=== PATIENT | female | born 1960 | race Caucasian/White ===

== ENCOUNTER 2020-02-17 12:54 | Inpatient (IN) ==
[~2020-02-17 12:54] MED LIST: ZINC SULFATE 220 MG CAPSULE PO SCH
[2020-02-17] MEDS ORDERED: SODIUM CHLORIDE 0.9% 1,000 ML IV STA (14:15)
[2020-02-17] MEDS ORDERED: DEXAMETHASONE 4 MG/1 ML VIAL IV STA (14:15)
[2020-02-17 14:50] LABS: Basophils % 0.3 % (0.0-0.8); Hematocrit 40.3 VOL% (35.7-47.0); Hemoglobin 13.7 GM/DL (12.0-16.0); Immature Granulocytes % 0.4 %; Immature Granulocytes Absolute 0.04 #; Lymphocytes # 0.5 10*3/uL (1.4-4.0); Lymphocytes % 4.4 % (21.3-54.2); Mean Corpuscular Volume 85.9 FL (87-102); Mean Platelet Volume 10.4 FL (9.6-12.0); Neutrophils % 91.9 % (38.7-73.9); Platelet Count 166 T/CUMM (130-400); Red Blood Count 4.69 MC/CUMM (3.8-5.5); Red Cell Distribution Width 12.7 % (9.3-17.3); White Blood Count 10.2 T/CUMM (4-12)
[2020-02-17 15:09] LABS: INR 1.1; PT Patient Result 11.4 SECS (9.8-11.9)
[2020-02-17 15:10] LABS: Albumin 2.9 G/DL (3.4-5.0); Bilirubin,Total 0.5 MG/DL (0.2-1.0); Calcium 9.1 MG/DL (8.5-10.1); Osmolality,Calculated 263.7 MOS/KG (273-304); Total Protein 7.6 G/DL (6.4-8.3)
[2020-02-17 15:44] LABS: Bacteria,Urine Occasional /HPF (Few); Bilirubin,Urine Negative (Negative); Blood, Urine Negative (Negative); Glucose,Urine (UA) Negative (Negative); Hyaline Casts,Urine 7 /LPF (0-3); Ketones,Urine Negative (Negative); Mucus,Urine Moderate /LPF (Occasional); Nitrite,Urine Negative (Negative); Protein,Urine 30 MG/DL; RBC,Urine 1 /HPF (0-4); Squamous Epithelial Cell,Urine Occasional /HPF (0-10); Urine Appearance CLOUDY (Clear); Urine Color Amber (Yellow); Urine Specific Gravity 1.021 (1.001-1.035); Urine Urobilinogen < 2.0 EU/DL (0.2-1.0); WBC,Urine 11 /HPF (0-6)
[2020-02-17] MEDS ORDERED: PROMETHAZINE 25 MG/1 ML VIAL IM PRN (15:54)
[2020-02-17] MEDS ORDERED: DEXTROSE 50% 25 GM/50 ML VIAL IV PRN (15:54)
[2020-02-17] MEDS ORDERED: GLUCAGON 1 MG VIAL IM PRN (15:54)
[2020-02-17] MEDS: cefTRIAXone 1,000 MG in SYRINGE 1 EACH IV SCH (16:11)
[2020-02-17] MEDS ORDERED: POTASSIUM CHLORIDE 20 MEQ TABLET PO ONE (16:44)
[2020-02-17] MEDS: AZITHROMYCIN 250 MG TABLET PO SCH (17:32)
[2020-02-17 18:30] LABS: Band Neutrophils 2 % (0-10); Lymphocytes 6 % (20-55); Platelet Estimate Normal; Segmented Neutrophils 90 % (50-85); Total Cells Counted 100
[2020-02-17] MEDS: ENOXAPARIN 40 MG/0.4 ML SYRINGE SUBCUT SCH (21:28)
[2020-02-17] MEDS: FAMOTIDINE 20 MG TABLET PO SCH (21:28)
[2020-02-18] MEDS: ACETAMINOPHEN 325 MG TABLET PO PRN ×3 (01:00→10:32)
[2020-02-18] MEDS: ALBUTEROL SULFATE INH SCH ×4 (01:00→20:48)
[2020-02-18] MEDS: LEVOTHYROXINE 137 MCG TABLET PO SCH (05:25)
[2020-02-18 06:17] LABS: Hematocrit 38.6 VOL% (35.7-47.0); Immature Granulocytes % 0.8 %; Immature Granulocytes Absolute 0.08 #; Lymphocytes # 0.5 10*3/uL (1.4-4.0); Lymphocytes % 5.3 % (21.3-54.2); Mean Corpuscular HGB Conc 33.7 GM/DL (32-36); Mean Corpuscular Volume 86.7 FL (87-102); Mean Platelet Volume 9.9 FL (9.6-12.0); Monocytes % 2.7 % (1.7-12.7); Neutrophils % 91.2 % (38.7-73.9); Platelet Count 180 T/CUMM (130-400); Red Blood Count 4.45 MC/CUMM (3.8-5.5); Red Cell Distribution Width 12.7 % (9.3-17.3); White Blood Count 9.5 T/CUMM (4-12)
[2020-02-18 06:53] LABS: Albumin 2.5 G/DL (3.4-5.0); Bilirubin,Total 0.6 MG/DL (0.2-1.0); Ferritin 382.9 ng/ml (8-252); Osmolality,Calculated 271.1 MOS/KG (273-304); Total Protein 7.1 G/DL (6.4-8.3)
[2020-02-18 07:01] LABS: Lymphocytes 2 % (20-55); Platelet Estimate Adequate; Segmented Neutrophils 96 % (50-85); Total Cells Counted 100
[2020-02-18 07:02] LABS: Hypochromasia 1+; Microcytosis 1+
[2020-02-18] MEDS: ZINC SULFATE 220 MG CAPSULE PO SCH (10:33)
[2020-02-18] MEDS: CETIRIZINE 10 MG TABLET PO SCH (10:33)
[2020-02-18] MEDS: CHOLECALCIFEROL 1,000 UNIT TABLET PO SCH (10:33)
[2020-02-18] MEDS: ASCORBIC ACID 500 MG TABLET PO SCH (10:33)
[2020-02-18] MEDS: atenoloL 50 MG TABLET PO SCH (10:33)
[2020-02-18] MEDS: FAMOTIDINE 20 MG TABLET PO SCH ×2 (10:34→20:49)
[2020-02-18] MEDS: FLUoxetine 20 MG CAPSULE PO SCH (10:34)
[2020-02-18] MEDS: ASPIRIN CHEW 81 MG TABLET PO SCH (10:34)
[2020-02-18] MEDS: FLUTICASONE 50 MCG NASAL SPRAY 16 GM BOTTLE BOTH NARES SCH ×2 (11:06→20:49)
[2020-02-18] MEDS: DEXAMETHASONE 10 MG/1 ML VIAL IV SCH (11:06)
[2020-02-18] MEDS ORDERED: REMDESIVIR 200 MG in SODIUM CHLORIDE 0.9% 210 ML IV ONE (13:00)
[2020-02-18] MEDS ORDERED: SODIUM CHLORIDE 0.9% 1,000 ML IV PRN (14:38)
[2020-02-18] MEDS: cefTRIAXone 1,000 MG in SYRINGE 1 EACH IV SCH (17:51)
[2020-02-18] MEDS: AZITHROMYCIN 250 MG TABLET PO SCH (17:51)
[2020-02-18] MEDS: ENOXAPARIN 40 MG/0.4 ML SYRINGE SUBCUT SCH (20:49)
[2020-02-19] MEDS: ALBUTEROL SULFATE INH SCH ×4 (01:43→19:20)
[2020-02-19 03:26] LABS: ABG Base Excess 3.6 MMOL/L (-2.5-2.5); ABG HCO3 27.5 MMOL/L (20-26); ABG Oxygen Saturation 92.4 % (95-100); ABG PCO2 37.6 MM HG (35-48); ABG PH 7.468 (7.35-7.45); ABG PO2 62.3 MM HG (80-95); ABG TCO2 23.6 MMOL/L (23-27); Allen Test Positive; Pt O2 Delivery Device Other
[2020-02-19 05:18] LABS: Risk Ratio 5.31; VLDL CHOLESTEROL 22.8 MG/DL
[2020-02-19] MEDS: LEVOTHYROXINE 137 MCG TABLET PO SCH (06:20)
[2020-02-19] MEDS: ASCORBIC ACID 500 MG TABLET PO SCH (09:20)
[2020-02-19] MEDS: FLUoxetine 20 MG CAPSULE PO SCH (09:20)
[2020-02-19] MEDS: ASPIRIN CHEW 81 MG TABLET PO SCH (09:20)
[2020-02-19] MEDS: atenoloL 50 MG TABLET PO SCH (09:21)
[2020-02-19 13:52] LABS: ABG Base Excess 4.7 MMOL/L (-2.5-2.5); ABG HCO3 28.4 MMOL/L (20-26); ABG Oxygen Saturation 88.5 % (95-100); ABG PCO2 36.3 MM HG (35-48); ABG PH 7.494 (7.35-7.45); ABG PO2 52.6 MM HG (80-95); Allen Test Positive; Pt O2 Delivery Device Other
[2020-02-19] MEDS: CHOLECALCIFEROL 1,000 UNIT TABLET PO SCH (14:25)
[2020-02-19] MEDS: FAMOTIDINE 20 MG TABLET PO SCH ×2 (14:25→21:58)
[2020-02-19] MEDS: FLUTICASONE 50 MCG NASAL SPRAY 16 GM BOTTLE BOTH NARES SCH ×2 (14:26→21:58)
[2020-02-19] MEDS: DEXAMETHASONE 10 MG/1 ML VIAL IV SCH (14:26)
[2020-02-19] MEDS: REMDESIVIR 100 MG in SODIUM CHLORIDE 0.9% 230 ML IV SCH (14:27)
[2020-02-19] MEDS: CETIRIZINE 10 MG TABLET PO SCH (14:28)
[2020-02-19] MEDS: cefTRIAXone 1,000 MG in SYRINGE 1 EACH IV SCH (17:07)
[2020-02-19] MEDS: AZITHROMYCIN 250 MG TABLET PO SCH (17:08)
[2020-02-19] MEDS: ENOXAPARIN 40 MG/0.4 ML SYRINGE SUBCUT SCH (21:58)
[2020-02-20] MEDS: ALBUTEROL SULFATE INH SCH ×4 (01:40→19:10)
[2020-02-20 05:52] LABS: ABG Base Excess 3.6 MMOL/L (-2.5-2.5); ABG HCO3 27.5 MMOL/L (20-26); ABG PCO2 36.2 MM HG (35-48); ABG PO2 60.3 MM HG (80-95); ABG TCO2 23.6 MMOL/L (23-27)
[2020-02-20] MEDS: LEVOTHYROXINE 137 MCG TABLET PO SCH (06:02)
[2020-02-20 07:10] LABS: Basophils % 0.2 % (0.0-0.8); Hemoglobin 13.3 GM/DL (12.0-16.0); Immature Granulocytes % 1.4 %; Immature Granulocytes Absolute 0.17 #; Lymphocytes # 0.5 10*3/uL (1.4-4.0); Mean Corpuscular HGB Conc 33.3 GM/DL (32-36); Mean Corpuscular Volume 85.3 FL (87-102); Mean Platelet Volume 10.2 FL (9.6-12.0); Neutrophils % 91.4 % (38.7-73.9); Platelet Count 268 T/CUMM (130-400); Red Blood Count 4.69 MC/CUMM (3.8-5.5); Red Cell Distribution Width 12.8 % (9.3-17.3); White Blood Count 11.9 T/CUMM (4-12)
[2020-02-20 07:27] LABS: Calcium 8.8 MG/DL (8.5-10.1)
[2020-02-20 08:33] LABS: Band Neutrophils 1 % (0-10); Hypersegmented Neutrophil SLIGHT; Lymphocytes 4 % (20-55); Platelet Estimate Normal; Segmented Neutrophils 93 % (50-85); Total Cells Counted 100
[2020-02-20] MEDS: CETIRIZINE 10 MG TABLET PO SCH (11:11)
[2020-02-20] MEDS: FLUoxetine 20 MG CAPSULE PO SCH (11:11)
[2020-02-20] MEDS: ASCORBIC ACID 500 MG TABLET PO SCH (11:11)
[2020-02-20] MEDS: ZINC SULFATE 220 MG CAPSULE PO SCH (11:11)
[2020-02-20] MEDS: FAMOTIDINE 20 MG TABLET PO SCH ×2 (11:12→20:25)
[2020-02-20] MEDS: FLUTICASONE 50 MCG NASAL SPRAY 16 GM BOTTLE BOTH NARES SCH ×2 (11:12→20:25)
[2020-02-20] MEDS: atenoloL 50 MG TABLET PO SCH (11:12)
[2020-02-20] MEDS: ASPIRIN CHEW 81 MG TABLET PO SCH (11:12)
[2020-02-20] MEDS: CHOLECALCIFEROL 1,000 UNIT TABLET PO SCH (11:12)
[2020-02-20] MEDS: DEXAMETHASONE 10 MG/1 ML VIAL IV SCH (11:12)
[2020-02-20] MEDS: REMDESIVIR 100 MG in SODIUM CHLORIDE 0.9% 230 ML IV SCH (12:18)
[2020-02-20] MEDS: cefTRIAXone 1,000 MG in SYRINGE 1 EACH IV SCH (17:03)
[2020-02-20] MEDS: AZITHROMYCIN 250 MG TABLET PO SCH (17:04)
[2020-02-20] MEDS: ENOXAPARIN 40 MG/0.4 ML SYRINGE SUBCUT SCH (20:25)
[2020-02-21] MEDS: ALBUTEROL SULFATE INH SCH ×4 (01:22→20:51)
[2020-02-21] MEDS: LEVOTHYROXINE 137 MCG TABLET PO SCH (06:04)
[2020-02-21 07:10] LABS: Basophils % 0.3 % (0.0-0.8); Hemoglobin 14.4 GM/DL (12.0-16.0); Immature Granulocytes % 2.5 %; Immature Granulocytes Absolute 0.36 #; Lymphocytes # 0.7 10*3/uL (1.4-4.0); Lymphocytes % 4.6 % (21.3-54.2); Mean Corpuscular HGB Conc 33.5 GM/DL (32-36); Mean Corpuscular Volume 85.3 FL (87-102); Monocytes % 2.8 % (1.7-12.7); Neutrophils % 89.8 % (38.7-73.9); Platelet Count 300 T/CUMM (130-400); Red Blood Count 5.04 MC/CUMM (3.8-5.5); White Blood Count 14.5 T/CUMM (4-12)
[2020-02-21 07:34] LABS: Albumin 2.3 G/DL (3.4-5.0); Bilirubin,Total 0.5 MG/DL (0.2-1.0); Calcium 8.9 MG/DL (8.5-10.1); Osmolality,Calculated 278.7 MOS/KG (273-304); Total Protein 7.1 G/DL (6.4-8.3)
[2020-02-21 07:59] LABS: Anisocytosis 1+; Band Neutrophils 2 % (0-10); Lymphocytes 3 % (20-55); Platelet Estimate Normal; Segmented Neutrophils 91 % (50-85); Total Cells Counted 100
[2020-02-21] MEDS: ASPIRIN CHEW 81 MG TABLET PO SCH (08:29)
[2020-02-21] MEDS: FLUoxetine 20 MG CAPSULE PO SCH (08:29)
[2020-02-21] MEDS: ASCORBIC ACID 500 MG TABLET PO SCH (08:29)
[2020-02-21] MEDS: CETIRIZINE 10 MG TABLET PO SCH (08:29)
[2020-02-21] MEDS: atenoloL 50 MG TABLET PO SCH (08:30)
[2020-02-21] MEDS: FLUTICASONE 50 MCG NASAL SPRAY 16 GM BOTTLE BOTH NARES SCH ×2 (08:30→23:47)
[2020-02-21] MEDS: DEXAMETHASONE 10 MG/1 ML VIAL IV SCH (08:30)
[2020-02-21] MEDS: FAMOTIDINE 20 MG TABLET PO SCH ×2 (08:30→20:51)
[2020-02-21] MEDS: CHOLECALCIFEROL 1,000 UNIT TABLET PO SCH (08:30)
[2020-02-21] MEDS: REMDESIVIR 100 MG in SODIUM CHLORIDE 0.9% 230 ML IV SCH (10:35)
[2020-02-21] MEDS: SODIUM CHLORIDE 0.9% 1,000 ML IV SCH (13:30)
[2020-02-21] MEDS: PIPERACILLIN/TAZOBACTAM 3,375 MG in SODIUM CHLORIDE 0.9% 100 ML IV SCH ×2 (13:40→20:52)
[2020-02-21] MEDS: ENOXAPARIN 60 MG/0.6 ML SYRINGE SUBCUT SCH (14:13)
[2020-02-21 14:24] LABS: Bacteria,Urine Occasional /HPF (Few); Bilirubin,Urine Negative (Negative); Blood, Urine Negative (Negative); Glucose,Urine (UA) Negative (Negative); Ketones,Urine Negative (Negative); Mucus,Urine Occasional /LPF (Occasional); Nitrite,Urine Negative (Negative); Protein,Urine Negative; RBC,Urine 2 /HPF (0-4); Squamous Epithelial Cell,Urine Occasional /HPF (0-10); Urine Appearance CLEAR (Clear); Urine Color Yellow (Yellow); Urine Urobilinogen < 2.0 EU/DL (0.2-1.0); WBC,Urine 1 /HPF (0-6)
[2020-02-21] MEDS ORDERED: ETOMIDATE 20 MG/10 ML VIAL IV ONE ×6 (14:44→16:07)
[2020-02-21] MEDS ORDERED: SUCCINYLCHOLINE 200 MG/10 ML VIAL ONE (14:45)
[2020-02-21] MEDS ORDERED: SODIUM CHLORIDE 0.9% 500 ML IV ONE ×2 (14:50→16:43)
[2020-02-21 15:16] LABS: Troponin I < 0.015 NG/ML (0.00-0.045)
[2020-02-21] MEDS ORDERED: SUCCINYLCHOLINE 200 MG/10 ML VIAL IV ONE ×4 (16:00→16:07)
[2020-02-21 17:37] LABS: ABG Base Excess -0.4 MMOL/L (-2.5-2.5); ABG HCO3 23.9 MMOL/L (20-26); ABG Oxygen Saturation 91.5 % (95-100); ABG PH 7.347 (7.35-7.45); ABG PO2 70.7 MM HG (80-95); ABG TCO2 22.7 MMOL/L (23-27); Pt O2 Delivery Device Ventilator
[2020-02-21] MEDS: MIDAZOLAM 100 MG in SODIUM CHLORIDE 0.9% 80 ML IV PRN (18:00)
[2020-02-22] MEDS: ALBUTEROL SULFATE INH SCH ×4 (00:52→20:35)
[2020-02-22] MEDS: ENOXAPARIN 60 MG/0.6 ML SYRINGE SUBCUT SCH (03:30)
[2020-02-22 03:42] LABS: ABG Base Excess 1.9 MMOL/L (-2.5-2.5); ABG HCO3 26.1 MMOL/L (20-26); ABG Oxygen Saturation 98.9 % (95-100); ABG PCO2 49.9 MM HG (35-48); ABG PH 7.361 (7.35-7.45); ABG TCO2 24.8 MMOL/L (23-27)
[2020-02-22 04:26] LABS: Basophils # 0.1 10*3/uL (0.0-0.2); Basophils % 0.3 % (0.0-0.8); Eosinophils % 0.1 % (0.00-10.9); Hematocrit 39.6 VOL% (35.7-47.0); Hemoglobin 13.1 GM/DL (12.0-16.0); Immature Granulocytes % 4.2 %; Immature Granulocytes Absolute 0.64 #; Lymphocytes # 0.5 10*3/uL (1.4-4.0); Lymphocytes % 3.3 % (21.3-54.2); Mean Corpuscular HGB Conc 33.1 GM/DL (32-36); Mean Corpuscular Volume 87.2 FL (87-102); Monocytes % 1.5 % (1.7-12.7); Neutrophils % 90.6 % (38.7-73.9); Platelet Count 236 T/CUMM (130-400); Red Blood Count 4.54 MC/CUMM (3.8-5.5); Red Cell Distribution Width 13.1 % (9.3-17.3); White Blood Count 15.2 T/CUMM (4-12)
[2020-02-22 04:43] LABS: Troponin I < 0.015 NG/ML (0.00-0.045)
[2020-02-22 04:45] LABS: Bilirubin,Total 0.4 MG/DL (0.2-1.0); Calcium 7.8 MG/DL (8.5-10.1); Ferritin 640.3 ng/ml (8-252); Osmolality,Calculated 282.4 MOS/KG (273-304); Total Protein 5.7 G/DL (6.4-8.3)
[2020-02-22 04:46] LABS: Band Neutrophils 1 % (0-10); Hypochromasia Slight; INR 1.1; Lymphocytes 4 % (20-55); Microcytosis Slight; PT Patient Result 11.8 SECS (9.8-11.9); Platelet Estimate Adequate; Segmented Neutrophils 93 % (50-85); Total Cells Counted 100
[2020-02-22 05:31] LABS: Sedimentation Rate-Westergren 69 MM/HR (0-30)
[2020-02-22] MEDS: PIPERACILLIN/TAZOBACTAM 3,375 MG in SODIUM CHLORIDE 0.9% 100 ML IV SCH ×3 (05:54→23:10)
[2020-02-22] MEDS: LEVOTHYROXINE 137 MCG TABLET PO SCH (05:55)
[2020-02-22] MEDS: ASPIRIN CHEW 81 MG TABLET PO SCH (08:00)
[2020-02-22] MEDS: ACETAMINOPHEN 325 MG TABLET PO PRN (08:00)
[2020-02-22] MEDS: FAMOTIDINE 20 MG TABLET PO SCH ×2 (08:00→20:35)
[2020-02-22] MEDS: CETIRIZINE 10 MG TABLET PO SCH (08:00)
[2020-02-22] MEDS: ASCORBIC ACID 500 MG TABLET PO SCH (08:00)
[2020-02-22] MEDS: ZINC SULFATE 220 MG CAPSULE PO SCH (08:00)
[2020-02-22] MEDS: DEXAMETHASONE 10 MG/1 ML VIAL IV SCH (08:00)
[2020-02-22] MEDS: CHOLECALCIFEROL 1,000 UNIT TABLET PO SCH (08:00)
[2020-02-22] MEDS: FLUoxetine 20 MG CAPSULE PO SCH (08:01)
[2020-02-22] MEDS: FLUTICASONE 50 MCG NASAL SPRAY 16 GM BOTTLE BOTH NARES SCH ×2 (08:01→20:35)
[2020-02-22] MEDS: REMDESIVIR 100 MG in SODIUM CHLORIDE 0.9% 230 ML IV SCH (08:54)
[2020-02-22] MEDS ORDERED: NOREPINEPHRINE 4 MG/4 ML VIAL IV ONE (09:49)
[2020-02-22] MEDS: ENOXAPARIN 120 MG/0.8 ML SYRINGE SUBCUT SCH ×2 (09:55→23:20)
[2020-02-22] MEDS: NOREPINEPHRINE 8 MG in SODIUM CHLORIDE 0.9% 242 ML IV PRN (09:55)
[2020-02-22] MEDS: MIDAZOLAM 100 MG in SODIUM CHLORIDE 0.9% 80 ML IV PRN (12:26)
[2020-02-22 13:42] LABS: HIV Antigen/Antibody Result Nonreactive (Nonreactive); Hepatitis B Surface Ag Quant < 0.10 Index; Hepatitis B Surface Ag Result Negative (Negative); Hepatitis C Virus Ab Quant < 0.02 Index; Hepatitis C Virus Ab Result Negative (Negative)
[2020-02-22] MEDS: SODIUM CHLORIDE 0.9% 1,000 ML IV SCH (19:00)
[2020-02-23] MEDS: ALBUTEROL SULFATE INH SCH ×4 (01:37→20:50)
[2020-02-23 02:35] LABS: ABG Base Excess 4.9 MMOL/L (-2.5-2.5); ABG HCO3 28.8 MMOL/L (20-26); ABG Oxygen Saturation 97.8 % (95-100); ABG PCO2 50.1 MM HG (35-48); ABG PH 7.397 (7.35-7.45); ABG PO2 99.5 MM HG (80-95); ABG TCO2 27.2 MMOL/L (23-27); Allen Test Positive; Pt O2 Delivery Device Ventilator
[2020-02-23 05:32] LABS: Basophils % 0.2 % (0.0-0.8); Eosinophils % 0.1 % (0.00-10.9); Hematocrit 38.2 VOL% (35.7-47.0); Hemoglobin 12.5 GM/DL (12.0-16.0); Immature Granulocytes % 4.8 %; Immature Granulocytes Absolute 0.84 #; Lymphocytes # 0.4 10*3/uL (1.4-4.0); Lymphocytes % 2.5 % (21.3-54.2); Mean Corpuscular HGB Conc 32.7 GM/DL (32-36); Mean Corpuscular Volume 88.2 FL (87-102); Monocytes % 1.3 % (1.7-12.7); Neutrophils % 91.1 % (38.7-73.9); Platelet Count 233 T/CUMM (130-400); Red Blood Count 4.33 MC/CUMM (3.8-5.5); Red Cell Distribution Width 12.8 % (9.3-17.3); White Blood Count 17.4 T/CUMM (4-12)
[2020-02-23] MEDS: PIPERACILLIN/TAZOBACTAM 3,375 MG in SODIUM CHLORIDE 0.9% 100 ML IV SCH ×3 (05:46→22:04)
[2020-02-23] MEDS: LEVOTHYROXINE 137 MCG TABLET PO SCH (05:47)
[2020-02-23] MEDS: ACETAMINOPHEN 325 MG TABLET PO PRN (05:47)
[2020-02-23 05:50] LABS: Calcium 8.4 MG/DL (8.5-10.1)
[2020-02-23 05:53] LABS: INR 1.1
[2020-02-23 05:54] LABS: Alanine Aminotransferase 28 U/L (13-56); Albumin 1.9 G/DL (3.4-5.0); Alkaline Phosphatase 62 U/L (45-117); Aspartate Amino Transferase 28 U/L (0-37); Bilirubin,Total < 0.39 MG/DL (0.2-1.0); Blood Urea Nitrogen 22 MG/DL (7-18); Calcium 8.3 MG/DL (8.5-10.1); Estimated Glom Filtration Rate 135 ML/MIN; Ferritin 868.7 ng/ml (8-252); Glucose 118 MG/DL (74-106); Osmolality,Calculated 282.4 MOS/KG (273-304)
[2020-02-23 06:46] LABS: Hypochromasia 1+; Lymphocytes 7 % (20-55); Microcytosis 1+; Ovalocytes Slight; Platelet Estimate Adequate; Segmented Neutrophils 91 % (50-85); Total Cells Counted 100
[2020-02-23 07:31] LABS: Sedimentation Rate-Westergren 81 MM/HR (0-30)
[2020-02-23] MEDS: DEXAMETHASONE 10 MG/1 ML VIAL IV SCH (08:04)
[2020-02-23] MEDS: FLUoxetine 20 MG CAPSULE PO SCH (08:04)
[2020-02-23] MEDS: ASPIRIN CHEW 81 MG TABLET PO SCH (08:04)
[2020-02-23] MEDS: CETIRIZINE 10 MG TABLET PO SCH (08:05)
[2020-02-23] MEDS: CHOLECALCIFEROL 1,000 UNIT TABLET PO SCH (08:05)
[2020-02-23] MEDS: ASCORBIC ACID 500 MG TABLET PO SCH (08:05)
[2020-02-23] MEDS: FAMOTIDINE 20 MG TABLET PO SCH ×2 (08:05→21:03)
[2020-02-23] MEDS: FLUTICASONE 50 MCG NASAL SPRAY 16 GM BOTTLE BOTH NARES SCH ×2 (08:06→21:03)
[2020-02-23] MEDS: ENOXAPARIN 120 MG/0.8 ML SYRINGE SUBCUT SCH ×2 (09:00→21:03)
[2020-02-23] MEDS ORDERED: POTASSIUM PHOSPHATE 30 MMOL in SODIUM CHLORIDE 0.9% 250 ML IV ONE (09:00)
[2020-02-23] MEDS: SODIUM CHLORIDE 0.9% 1,000 ML IV SCH (15:22)
[2020-02-23] MEDS: MIDAZOLAM 100 MG in SODIUM CHLORIDE 0.9% 80 ML IV PRN (17:28)
[2020-02-24] MEDS: ALBUTEROL SULFATE INH SCH ×4 (02:00→18:57)
[2020-02-24 05:20] LABS: ABG Base Excess 7.7 MMOL/L (-2.5-2.5); ABG Oxygen Saturation 98.8 % (95-100); ABG PCO2 49.6 MM HG (35-48); ABG PH 7.441 (7.35-7.45); ABG PO2 195.5 MM HG (80-95); ABG TCO2 34.5 MMOL/L (23-27); Allen Test Positive; Pt O2 Delivery Device Ventilator
[2020-02-24 05:28] LABS: Ferritin 724.7 ng/ml (8-252)
[2020-02-24] MEDS: LEVOTHYROXINE 137 MCG TABLET PO SCH (05:41)
[2020-02-24] MEDS: PIPERACILLIN/TAZOBACTAM 3,375 MG in SODIUM CHLORIDE 0.9% 100 ML IV SCH ×3 (05:50→20:38)
[2020-02-24 08:02] LABS: Calcium 8.4 MG/DL (8.5-10.1); Osmolality,Calculated 292.8 MOS/KG (273-304)
[2020-02-24] MEDS: FAMOTIDINE 20 MG TABLET PO SCH ×2 (08:09→20:22)
[2020-02-24] MEDS: ZINC SULFATE 220 MG CAPSULE PO SCH (08:10)
[2020-02-24] MEDS: CHOLECALCIFEROL 1,000 UNIT TABLET PO SCH (08:10)
[2020-02-24] MEDS: CETIRIZINE 10 MG TABLET PO SCH (08:10)
[2020-02-24] MEDS: FLUTICASONE 50 MCG NASAL SPRAY 16 GM BOTTLE BOTH NARES SCH ×2 (08:10→20:23)
[2020-02-24] MEDS: ASPIRIN CHEW 81 MG TABLET PO SCH (08:10)
[2020-02-24] MEDS: DEXAMETHASONE 10 MG/1 ML VIAL IV SCH (08:11)
[2020-02-24] MEDS: ASCORBIC ACID 500 MG TABLET PO SCH (08:13)
[2020-02-24] MEDS: FLUoxetine 20 MG CAPSULE PO SCH (08:15)
[2020-02-24] MEDS: ENOXAPARIN 120 MG/0.8 ML SYRINGE SUBCUT SCH ×2 (09:30→22:47)
[2020-02-24 09:36] LABS: Basophils % 0.2 % (0.0-0.8); Eosinophils % 0.1 % (0.00-10.9); Hematocrit 36.9 VOL% (35.7-47.0); Hemoglobin 11.8 GM/DL (12.0-16.0); Immature Granulocytes % 4.4 %; Immature Granulocytes Absolute 0.66 #; Lymphocytes # 0.3 10*3/uL (1.4-4.0); Lymphocytes % 2.1 % (21.3-54.2); Mean Corpuscular Volume 89.8 FL (87-102); Mean Platelet Volume 11.2 FL (9.6-12.0); Monocytes % 1.7 % (1.7-12.7); Neutrophils % 91.5 % (38.7-73.9); Platelet Count 202 T/CUMM (130-400); Red Blood Count 4.11 MC/CUMM (3.8-5.5); Red Cell Distribution Width 13.2 % (9.3-17.3)
[2020-02-24 09:57] LABS: Band Neutrophils 6 % (0-10); Lymphocytes 3 % (20-55); Nucleated Red Blood Cells 1 (0-5); Platelet Estimate Normal; Segmented Neutrophils 87 % (50-85); Total Cells Counted 100
[2020-02-24 09:58] LABS: Anisocytosis Slight
[2020-02-24] MEDS: ACETAMINOPHEN 325 MG/10.15 ML UDCUP PO PRN (14:14)
[2020-02-24] MEDS: SODIUM CHLORIDE 0.9% 1,000 ML IV SCH (14:15)
[2020-02-25] MEDS: ALBUTEROL SULFATE INH SCH ×4 (00:17→20:38)
[2020-02-25 04:42] LABS: ABG Base Excess 9.9 MMOL/L (-2.5-2.5); ABG HCO3 33.7 MMOL/L (20-26); ABG Oxygen Saturation 99.1 % (95-100); ABG PH 7.479 (7.35-7.45); Allen Test Positive; Pt O2 Delivery Device Ventilator
[2020-02-25 05:20] LABS: Basophils % 0.2 % (0.0-0.8); Eosinophils % 0.2 % (0.00-10.9); Hematocrit 35.2 VOL% (35.7-47.0); Hemoglobin 11.5 GM/DL (12.0-16.0); Immature Granulocytes % 2.1 %; Immature Granulocytes Absolute 0.28 #; Lymphocytes # 0.4 10*3/uL (1.4-4.0); Lymphocytes % 2.7 % (21.3-54.2); Mean Corpuscular HGB Conc 32.7 GM/DL (32-36); Mean Corpuscular Volume 88.2 FL (87-102); Mean Platelet Volume 10.3 FL (9.6-12.0); Monocytes % 1.6 % (1.7-12.7); Neutrophils % 93.2 % (38.7-73.9); Platelet Count 235 T/CUMM (130-400); Red Blood Count 3.99 MC/CUMM (3.8-5.5); Red Cell Distribution Width 12.6 % (9.3-17.3); White Blood Count 13.3 T/CUMM (4-12)
[2020-02-25] MEDS: PIPERACILLIN/TAZOBACTAM 3,375 MG in SODIUM CHLORIDE 0.9% 100 ML IV SCH ×3 (05:45→20:39)
[2020-02-25 05:48] LABS: Band Neutrophils 1 % (0-10); Eosinophils 1 % (0-10); Lymphocytes 3 % (20-55); Platelet Estimate Normal; Segmented Neutrophils 92 % (50-85); Total Cells Counted 100
[2020-02-25] MEDS: LEVOTHYROXINE 137 MCG TABLET PO SCH (06:30)
[2020-02-25 06:52] LABS: Calcium 8.7 MG/DL (8.5-10.1); Osmolality,Calculated 285.4 MOS/KG (273-304)
[2020-02-25 07:11] LABS: Ferritin 761.9 ng/ml (8-252)
[2020-02-25] MEDS: CHOLECALCIFEROL 1,000 UNIT TABLET PO SCH (09:33)
[2020-02-25] MEDS: FAMOTIDINE 20 MG TABLET PO SCH ×2 (09:33→20:38)
[2020-02-25] MEDS: FLUoxetine 20 MG CAPSULE PO SCH (09:34)
[2020-02-25] MEDS: FLUTICASONE 50 MCG NASAL SPRAY 16 GM BOTTLE BOTH NARES SCH ×2 (09:34→20:38)
[2020-02-25] MEDS: DEXAMETHASONE 10 MG/1 ML VIAL IV SCH (09:34)
[2020-02-25] MEDS: ASCORBIC ACID 500 MG TABLET PO SCH (09:34)
[2020-02-25] MEDS: ASPIRIN CHEW 81 MG TABLET PO SCH (09:34)
[2020-02-25] MEDS: CETIRIZINE 10 MG TABLET PO SCH (09:34)
[2020-02-25] MEDS: ENOXAPARIN 120 MG/0.8 ML SYRINGE SUBCUT SCH ×2 (09:34→21:23)
[2020-02-25] MEDS: SODIUM CHLORIDE 0.9% 1,000 ML IV SCH (15:17)
[2020-02-25] MEDS: FLUCONAZOLE INJ 400 MG in PREMIX 1 EACH IV SCH (15:17)
[2020-02-26] MEDS: ALBUTEROL INHALER 18 GM INH SCH ×4 (01:45→19:50)
[2020-02-26 04:07] LABS: ABG Base Excess -2.9 MMOL/L (-2.5-2.5); ABG HCO3 17.9 MMOL/L (20-26); ABG PCO2 22.9 MM HG (35-48); ABG PO2 150.6 MM HG (80-95); ABG TCO2 18.6 MMOL/L (23-27); Allen Test Positive; Pt O2 Delivery Device Ventilator
[2020-02-26 04:56] LABS: Basophils % 0.2 % (0.0-0.8); Eosinophils # 0.1 10*3/uL (0.0-0.87); Eosinophils % 0.4 % (0.00-10.9); Hematocrit 36.6 VOL% (35.7-47.0); Immature Granulocytes % 2.4 %; Immature Granulocytes Absolute 0.34 #; Lymphocytes # 0.3 10*3/uL (1.4-4.0); Lymphocytes % 2.4 % (21.3-54.2); Mean Corpuscular HGB Conc 32.8 GM/DL (32-36); Mean Corpuscular Volume 88.2 FL (87-102); Mean Platelet Volume 10.3 FL (9.6-12.0); Monocytes % 1.2 % (1.7-12.7); Neutrophils % 93.4 % (38.7-73.9); Platelet Count 268 T/CUMM (130-400); Red Blood Count 4.15 MC/CUMM (3.8-5.5); Red Cell Distribution Width 12.5 % (9.3-17.3); White Blood Count 14.1 T/CUMM (4-12)
[2020-02-26 05:17] LABS: Calcium 8.6 MG/DL (8.5-10.1); Ferritin 760.9 ng/ml (8-252); Osmolality,Calculated 279.7 MOS/KG (273-304)
[2020-02-26 05:20] LABS: Eosinophils 2 % (0-10); Lymphocytes 2 % (20-55); Segmented Neutrophils 95 % (50-85); Total Cells Counted 100
[2020-02-26 05:22] LABS: Hypochromasia Slight; Platelet Estimate Normal
[2020-02-26] MEDS: PIPERACILLIN/TAZOBACTAM 3,375 MG in SODIUM CHLORIDE 0.9% 100 ML IV SCH ×3 (05:45→20:36)
[2020-02-26] MEDS: LEVOTHYROXINE 137 MCG TABLET PO SCH (06:09)
[2020-02-26] MEDS: ZINC SULFATE 220 MG CAPSULE PO SCH (08:29)
[2020-02-26] MEDS: ASPIRIN CHEW 81 MG TABLET PO SCH (08:29)
[2020-02-26] MEDS: DEXAMETHASONE 10 MG/1 ML VIAL IV SCH (08:29)
[2020-02-26] MEDS: FAMOTIDINE 20 MG TABLET PO SCH ×2 (08:29→20:36)
[2020-02-26] MEDS: CHOLECALCIFEROL 1,000 UNIT TABLET PO SCH (08:29)
[2020-02-26] MEDS: IBUPROFEN 100 MG/5 ML UDCUP PO PRN (08:30)
[2020-02-26] MEDS: FLUoxetine 20 MG CAPSULE PO SCH (08:30)
[2020-02-26] MEDS: FLUTICASONE 50 MCG NASAL SPRAY 16 GM BOTTLE BOTH NARES SCH ×2 (08:30→20:38)
[2020-02-26] MEDS: CETIRIZINE 10 MG TABLET PO SCH (08:30)
[2020-02-26] MEDS: ENOXAPARIN 120 MG/0.8 ML SYRINGE SUBCUT SCH ×2 (09:04→21:17)
[2020-02-26] MEDS: ASCORBIC ACID 500 MG TABLET PO SCH (10:47)
[2020-02-26 11:21] LABS: ABG Base Excess 7.2 MMOL/L (-2.5-2.5); ABG HCO3 33.9 MMOL/L (20-26); ABG Oxygen Saturation 90.5 % (95-100); ABG PH 7.385 (7.35-7.45); ABG PO2 63.3 MM HG (80-95); ABG TCO2 35.7 MMOL/L (23-27); Allen Test Positive; Pt O2 Delivery Device Ventilator
[2020-02-26] MEDS: SODIUM CHLORIDE 0.9% 1,000 ML IV SCH (15:28)
[2020-02-26] MEDS: FLUCONAZOLE INJ 400 MG in PREMIX 1 EACH IV SCH (16:57)
[2020-02-27] MEDS: ALBUTEROL INHALER 18 GM INH SCH ×4 (01:12→20:13)
[2020-02-27 03:41] LABS: ABG Base Excess 10.8 MMOL/L (-2.5-2.5); ABG HCO3 36.9 MMOL/L (20-26); ABG Oxygen Saturation 96.4 % (95-100); ABG PCO2 56.4 MM HG (35-48); ABG PH 7.434 (7.35-7.45); ABG PO2 90.5 MM HG (80-95); ABG TCO2 38.7 MMOL/L (23-27); Allen Test Positive; Pt O2 Delivery Device Ventilator
[2020-02-27 05:00] LABS: Basophils % 0.2 % (0.0-0.8); Eosinophils % 0.2 % (0.00-10.9); Hematocrit 33.7 VOL% (35.7-47.0); Hemoglobin 11.2 GM/DL (12.0-16.0); Immature Granulocytes % 4.3 %; Immature Granulocytes Absolute 0.56 #; Lymphocytes # 0.2 10*3/uL (1.4-4.0); Lymphocytes % 1.9 % (21.3-54.2); Mean Corpuscular HGB Conc 33.2 GM/DL (32-36); Mean Corpuscular Volume 89.2 FL (87-102); Mean Platelet Volume 10.3 FL (9.6-12.0); Monocytes % 1.7 % (1.7-12.7); Neutrophils % 91.7 % (38.7-73.9); Platelet Count 258 T/CUMM (130-400); Red Blood Count 3.78 MC/CUMM (3.8-5.5); Red Cell Distribution Width 12.3 % (9.3-17.3); White Blood Count 12.9 T/CUMM (4-12)
[2020-02-27 05:22] LABS: Band Neutrophils 1 % (0-10); Hypochromasia 1+; Lymphocytes 2 % (20-55); Microcytosis 1+; Platelet Estimate Adequate; Segmented Neutrophils 96 % (50-85); Total Cells Counted 100
[2020-02-27 05:23] LABS: Calcium 8.5 MG/DL (8.5-10.1); Ferritin 771.1 ng/ml (8-252); Osmolality,Calculated 287.1 MOS/KG (273-304)
[2020-02-27] MEDS: PIPERACILLIN/TAZOBACTAM 3,375 MG in SODIUM CHLORIDE 0.9% 100 ML IV SCH ×3 (05:42→20:36)
[2020-02-27] MEDS: LEVOTHYROXINE 137 MCG TABLET PO SCH (06:15)
[2020-02-27] MEDS: ASPIRIN CHEW 81 MG TABLET PO SCH (08:14)
[2020-02-27] MEDS: ASCORBIC ACID 500 MG TABLET PO SCH (08:14)
[2020-02-27] MEDS: FLUoxetine 20 MG CAPSULE PO SCH (08:14)
[2020-02-27] MEDS: CHOLECALCIFEROL 1,000 UNIT TABLET PO SCH (08:14)
[2020-02-27] MEDS: FAMOTIDINE 20 MG TABLET PO SCH ×2 (08:15→20:15)
[2020-02-27] MEDS: DEXAMETHASONE 10 MG/1 ML VIAL IV SCH (08:15)
[2020-02-27] MEDS: FLUTICASONE 50 MCG NASAL SPRAY 16 GM BOTTLE BOTH NARES SCH ×2 (08:15→20:15)
[2020-02-27] MEDS: CETIRIZINE 10 MG TABLET PO SCH (08:18)
[2020-02-27] MEDS: ENOXAPARIN 120 MG/0.8 ML SYRINGE SUBCUT SCH ×2 (09:06→21:32)
[2020-02-27] MEDS: SODIUM CHLORIDE 0.9% 1,000 ML IV SCH (13:45)
[2020-02-27] MEDS ORDERED: FUROSEMIDE 40 MG/4 ML VIAL IV SCH (16:00)
[2020-02-27] MEDS: FLUCONAZOLE INJ 400 MG in PREMIX 1 EACH IV SCH (17:46)
[2020-02-27] MEDS: FUROSEMIDE 40 MG/4 ML VIAL IV SCH (17:46)
[2020-02-28] MEDS: ALBUTEROL INHALER 18 GM INH SCH ×4 (00:15→18:18)
[2020-02-28] MEDS: FUROSEMIDE 40 MG/4 ML VIAL IV SCH ×2 (04:05→15:52)
[2020-02-28 04:28] LABS: ABG Base Excess 12.4 MMOL/L (-2.5-2.5); ABG HCO3 39.8 MMOL/L (20-26); ABG Oxygen Saturation 94.2 % (95-100); ABG PCO2 61.5 MM HG (35-48); ABG PH 7.429 (7.35-7.45); ABG PO2 74.1 MM HG (80-95); ABG TCO2 41.7 MMOL/L (23-27); Allen Test Positive; Pt O2 Delivery Device Ventilator
[2020-02-28 04:35] LABS: Basophils % 0.2 % (0.0-0.8); Eosinophils # 0.2 10*3/uL (0.0-0.87); Eosinophils % 1.3 % (0.00-10.9); Hematocrit 36.4 VOL% (35.7-47.0); Hemoglobin 11.8 GM/DL (12.0-16.0); Immature Granulocytes % 3.4 %; Immature Granulocytes Absolute 0.49 #; Lymphocytes # 0.5 10*3/uL (1.4-4.0); Lymphocytes % 3.3 % (21.3-54.2); Mean Corpuscular HGB Conc 32.4 GM/DL (32-36); Mean Corpuscular Volume 89.4 FL (87-102); Mean Platelet Volume 10.6 FL (9.6-12.0); Monocytes % 1.5 % (1.7-12.7); Neutrophils % 90.3 % (38.7-73.9); Platelet Count 289 T/CUMM (130-400); Red Blood Count 4.07 MC/CUMM (3.8-5.5); Red Cell Distribution Width 12.6 % (9.3-17.3); White Blood Count 14.5 T/CUMM (4-12)
[2020-02-28 04:54] LABS: Band Neutrophils 1 % (0-10); Eosinophils 2 % (0-10); Lymphocytes 5 % (20-55); Platelet Estimate Adequate; Segmented Neutrophils 92 % (50-85); Total Cells Counted 100
[2020-02-28 04:55] LABS: Hypochromasia 1+; Microcytosis 1+; Ovalocytes Slight
[2020-02-28 04:57] LABS: Ferritin 800.1 ng/ml (8-252)
[2020-02-28] MEDS: PIPERACILLIN/TAZOBACTAM 3,375 MG in SODIUM CHLORIDE 0.9% 100 ML IV SCH ×3 (06:22→20:44)
[2020-02-28] MEDS: ACETAMINOPHEN 325 MG/10.15 ML UDCUP PO PRN ×2 (06:23→12:20)
[2020-02-28] MEDS: LEVOTHYROXINE 137 MCG TABLET PO SCH (06:23)
[2020-02-28 06:51] LABS: Albumin 2.1 G/DL (3.4-5.0); Bilirubin,Total 0.8 MG/DL (0.2-1.0); Calcium 9.1 MG/DL (8.5-10.1); Osmolality,Calculated 283.4 MOS/KG (273-304); Total Protein 6.7 G/DL (6.4-8.3)
[2020-02-28] MEDS: ASPIRIN CHEW 81 MG TABLET PO SCH (09:14)
[2020-02-28] MEDS: ASCORBIC ACID 500 MG TABLET PO SCH (09:19)
[2020-02-28] MEDS: CHOLECALCIFEROL 1,000 UNIT TABLET PO SCH (09:19)
[2020-02-28] MEDS: ZINC SULFATE 220 MG CAPSULE PO SCH (09:19)
[2020-02-28] MEDS: FLUoxetine 20 MG CAPSULE PO SCH (09:20)
[2020-02-28] MEDS: DEXAMETHASONE 10 MG/1 ML VIAL IV SCH (09:20)
[2020-02-28] MEDS: FLUTICASONE 50 MCG NASAL SPRAY 16 GM BOTTLE BOTH NARES SCH ×2 (09:20→20:44)
[2020-02-28] MEDS: CETIRIZINE 10 MG TABLET PO SCH (09:21)
[2020-02-28] MEDS: FAMOTIDINE 20 MG TABLET PO SCH ×2 (09:21→20:43)
[2020-02-28] MEDS: ENOXAPARIN 120 MG/0.8 ML SYRINGE SUBCUT SCH ×2 (09:27→21:00)
[2020-02-28] MEDS: SODIUM CHLORIDE 0.9% 1,000 ML IV SCH (14:08)
[2020-02-28] MEDS: FLUCONAZOLE INJ 400 MG in PREMIX 1 EACH IV SCH (17:22)
[2020-02-29] MEDS: ALBUTEROL INHALER 18 GM INH SCH ×4 (01:06→18:40)
[2020-02-29] MEDS ORDERED: METOPROLOL TARTRATE 5 MG/5 ML VIAL IV ONE ×2 (02:34→02:36)
[2020-02-29] MEDS: IBUPROFEN 100 MG/5 ML UDCUP PO PRN ×3 (02:41→17:45)
[2020-02-29 02:42] LABS: Basophils % 0.2 % (0.0-0.8); Eosinophils % 0.2 % (0.00-10.9); Hematocrit 37.6 VOL% (35.7-47.0); Hemoglobin 12.2 GM/DL (12.0-16.0); Immature Granulocytes % 2.8 %; Immature Granulocytes Absolute 0.49 #; Lymphocytes # 0.3 10*3/uL (1.4-4.0); Lymphocytes % 1.9 % (21.3-54.2); Mean Corpuscular HGB Conc 32.4 GM/DL (32-36); Mean Corpuscular Volume 89.1 FL (87-102); Mean Platelet Volume 9.9 FL (9.6-12.0); Monocytes % 1.2 % (1.7-12.7); Neutrophils % 93.7 % (38.7-73.9); Platelet Count 350 T/CUMM (130-400); Red Blood Count 4.22 MC/CUMM (3.8-5.5); Red Cell Distribution Width 12.7 % (9.3-17.3); White Blood Count 17.4 T/CUMM (4-12)
[2020-02-29] MEDS ORDERED: AMIODARONE INJ 150 MG in DEXTROSE 5% 100 ML IV ONE (02:58)
[2020-02-29 03:00] LABS: Calcium 9.2 MG/DL (8.5-10.1); Osmolality,Calculated 292.1 MOS/KG (273-304)
[2020-02-29] MEDS ORDERED: AMIODARONE INJ 450 MG in DEXTROSE 5% 241 ML IV SCH ×2 (03:00→09:00)
[2020-02-29] MEDS ORDERED: AMIODARONE 150 MG/3 ML VIAL ONE (03:12)
[2020-02-29 03:16] LABS: Lymphocytes 2 % (20-55); Platelet Estimate Normal; Segmented Neutrophils 98 % (50-85); Total Cells Counted 100
[2020-02-29] MEDS ORDERED: SODIUM CHLORIDE 0.9% 500 ML IV ONE (03:18)
[2020-02-29 03:33] LABS: Ferritin 802.1 ng/ml (8-252)
[2020-02-29] MEDS: FUROSEMIDE 40 MG/4 ML VIAL IV SCH (03:37)
[2020-02-29 04:20] LABS: Allen Test Positive; Pt O2 Delivery Device Ventilator
[2020-02-29 04:21] LABS: ABG Base Excess 10.2 MMOL/L (-2.5-2.5); ABG Oxygen Saturation 98.8 % (95-100); ABG PCO2 62.7 MM HG (35-48); ABG PH 7.389 (7.35-7.45); ABG TCO2 33.5 MMOL/L (23-27)
[2020-02-29] MEDS: NOREPINEPHRINE 8 MG in SODIUM CHLORIDE 0.9% 242 ML IV PRN (04:26)
[2020-02-29] MEDS: ACETAMINOPHEN 325 MG/10.15 ML UDCUP PO PRN ×4 (04:26→20:40)
[2020-02-29] MEDS: LEVOTHYROXINE 137 MCG TABLET PO SCH (05:51)
[2020-02-29] MEDS ORDERED: DIGOXIN 0.5 MG/2 ML AMP IV ONE (05:52)
[2020-02-29] MEDS: SODIUM CHLORIDE 0.9% 1,000 ML IV SCH ×3 (08:43→18:40)
[2020-02-29] MEDS: ASCORBIC ACID 500 MG TABLET PO SCH (08:45)
[2020-02-29] MEDS: DEXAMETHASONE 10 MG/1 ML VIAL IV SCH (08:45)
[2020-02-29] MEDS: ASPIRIN CHEW 81 MG TABLET PO SCH (08:45)
[2020-02-29] MEDS: FAMOTIDINE 20 MG TABLET PO SCH ×2 (08:45→20:40)
[2020-02-29] MEDS: CHOLECALCIFEROL 1,000 UNIT TABLET PO SCH (08:46)
[2020-02-29] MEDS: CETIRIZINE 10 MG TABLET PO SCH (08:46)
[2020-02-29] MEDS: FLUoxetine 20 MG CAPSULE PO SCH (08:46)
[2020-02-29] MEDS: FLUTICASONE 50 MCG NASAL SPRAY 16 GM BOTTLE BOTH NARES SCH ×2 (08:46→20:40)
[2020-02-29] MEDS: ENOXAPARIN 120 MG/0.8 ML SYRINGE SUBCUT SCH ×2 (09:23→21:00)
[2020-02-29] MEDS: MEROPENEM 500 MG in SODIUM CHLORIDE 0.9% 100 ML IV SCH ×3 (10:29→21:29)
[2020-02-29] MEDS: fentaNYL INJ 2,500 MCG in SODIUM CHLORIDE 0.9% 75 ML IV PRN ×2 (10:35→20:17)
[2020-02-29] MEDS: INSULIN REGULAR 100 UNIT/ML SUBCUT SCH ×2 (12:18→17:45)
[2020-02-29] MEDS: VANCOMYCIN INJ 1,500 MG in SODIUM CHLORIDE 0.9% 500 ML IV SCH ×2 (12:19→23:21)
[2020-02-29] MEDS: DIGOXIN 0.5 MG/2 ML AMP IV SCH ×2 (12:19→17:46)
[2020-02-29] MEDS: PHENYLEPHRINE DRIP 40 MG/250 ML PREMIX IV PRN ×2 (13:00→21:15)
[2020-02-29] MEDS: FLUCONAZOLE INJ 400 MG in PREMIX 1 EACH IV SCH (17:46)
[2020-02-29 22:07] LABS: Hematocrit 24.3 VOL% (35.7-47.0)
[2020-02-29 22:08] LABS: Hemoglobin 7.6 GM/DL (12.0-16.0)
[2020-02-29] MEDS ORDERED: SODIUM CHLORIDE 0.9% 1,000 ML IV PRN (22:18)
[2020-02-29] MEDS: PHENYLEPHRINE INJ 160 MG in SODIUM CHLORIDE 0.9% 234 ML IV PRN (23:10)
[2020-03-01] MEDS: INSULIN REGULAR 100 UNIT/ML SUBCUT SCH ×4 (00:22→17:47)
[2020-03-01] MEDS: ALBUTEROL INHALER 18 GM INH SCH ×4 (02:22→20:53)
[2020-03-01] MEDS: MEROPENEM 500 MG in SODIUM CHLORIDE 0.9% 100 ML IV SCH ×4 (03:35→22:16)
[2020-03-01 04:09] LABS: Basophils % 0.1 % (0.0-0.8); Hematocrit 31.4 VOL% (35.7-47.0); Immature Granulocytes % 8.1 %; Immature Granulocytes Absolute 3.27 #; Lymphocytes # 1.9 10*3/uL (1.4-4.0); Lymphocytes % 4.7 % (21.3-54.2); Mean Corpuscular HGB Conc 32.8 GM/DL (32-36); Mean Platelet Volume 10.5 FL (9.6-12.0); Monocytes % 3.1 % (1.7-12.7); NRBC # 0.07 10*3/uL; Platelet Count 289 T/CUMM (130-400); Red Blood Count 3.57 MC/CUMM (3.8-5.5); Red Cell Distribution Width 16.9 % (9.3-17.3)
[2020-03-01 04:13] LABS: Hemoglobin 10.3 GM/DL (12.0-16.0)
[2020-03-01 04:15] LABS: White Blood Count 40.2 T/CUMM (4-12)
[2020-03-01 04:16] LABS: Osmolality,Calculated 312.4 MOS/KG (273-304)
[2020-03-01 04:25] LABS: Band Neutrophils 1 % (0-10); Hypochromasia 1+; Lymphocytes 8 % (20-55); Microcytosis 1+; Nucleated Red Blood Cells 1 (0-5); Platelet Estimate Adequate; Segmented Neutrophils 88 % (50-85); Total Cells Counted 100
[2020-03-01 04:29] LABS: ABG Base Excess -0.4 MMOL/L (-2.5-2.5); ABG PCO2 62.9 MM HG (35-48); ABG PH 7.256 (7.35-7.45); ABG PO2 81.1 MM HG (80-95); ABG TCO2 25.8 MMOL/L (23-27); Allen Test Positive; Pt O2 Delivery Device Ventilator
[2020-03-01] MEDS: SODIUM CHLORIDE 0.9% 1,000 ML IV SCH ×3 (05:00→14:32)
[2020-03-01] MEDS ORDERED: VASOPRESSIN 100 UNITS in SODIUM CHLORIDE 0.9% 95 ML IV PRN (05:56)
[2020-03-01] MEDS: LEVOTHYROXINE 137 MCG TABLET PO SCH (06:02)
[2020-03-01] MEDS: PHENYLEPHRINE INJ 160 MG in SODIUM CHLORIDE 0.9% 234 ML IV PRN ×4 (06:09→22:00)
[2020-03-01] MEDS: fentaNYL INJ 2,500 MCG in SODIUM CHLORIDE 0.9% 75 ML IV PRN ×2 (08:24→20:30)
[2020-03-01] MEDS: ZINC SULFATE 220 MG CAPSULE PO SCH (08:35)
[2020-03-01] MEDS: FLUoxetine 20 MG CAPSULE PO SCH (08:35)
[2020-03-01] MEDS: FAMOTIDINE 20 MG TABLET PO SCH ×2 (08:35→20:53)
[2020-03-01] MEDS: ASCORBIC ACID 500 MG TABLET PO SCH (08:35)
[2020-03-01] MEDS: FLUTICASONE 50 MCG NASAL SPRAY 16 GM BOTTLE BOTH NARES SCH ×2 (08:36→20:53)
[2020-03-01] MEDS: CETIRIZINE 10 MG TABLET PO SCH (08:36)
[2020-03-01] MEDS: CHOLECALCIFEROL 1,000 UNIT TABLET PO SCH (08:37)
[2020-03-01] MEDS: ASPIRIN CHEW 81 MG TABLET PO SCH (09:46)
[2020-03-01 10:50] LABS: Hematocrit 27.5 VOL% (35.7-47.0); Hemoglobin 9.2 GM/DL (12.0-16.0)
[2020-03-01] MEDS: VANCOMYCIN INJ 1,500 MG in SODIUM CHLORIDE 0.9% 500 ML IV SCH ×2 (13:09→23:33)
[2020-03-01] MEDS: DIGOXIN 0.125 MG TABLET PO SCH (17:12)
[2020-03-01] MEDS: FLUCONAZOLE INJ 400 MG in PREMIX 1 EACH IV SCH (17:49)
[2020-03-01] MEDS: PANTOPRAZOLE 40 MG VIAL IV SCH (20:53)
[2020-03-01] MEDS: IBUPROFEN 100 MG/5 ML UDCUP PO PRN (20:54)
[2020-03-02] MEDS: INSULIN REGULAR 100 UNIT/ML SUBCUT SCH ×4 (00:34→17:28)
[2020-03-02] MEDS: ALBUTEROL INHALER 18 GM INH SCH ×4 (01:35→19:53)
[2020-03-02] MEDS: SODIUM CHLORIDE 0.9% 1,000 ML IV SCH (03:15)
[2020-03-02 03:25] LABS: Allen Test Positive; Pt O2 Delivery Device Ventilator
[2020-03-02 03:28] LABS: ABG Base Excess -2.4 MMOL/L (-2.5-2.5); ABG HCO3 24.1 MMOL/L (20-26); ABG Oxygen Saturation 97.4 % (95-100); ABG PH 7.292 (7.35-7.45); ABG PO2 125.6 MM HG (80-95); ABG TCO2 25.6 MMOL/L (23-27)
[2020-03-02] MEDS: MEROPENEM 500 MG in SODIUM CHLORIDE 0.9% 100 ML IV SCH ×4 (04:14→22:35)
[2020-03-02 05:14] LABS: Basophils # 0.1 10*3/uL (0.0-0.2); Basophils % 0.1 % (0.0-0.8); Hematocrit 21.3 VOL% (35.7-47.0); Immature Granulocytes Absolute 2.17 #; Lymphocytes # 1.6 10*3/uL (1.4-4.0); Lymphocytes % 4.3 % (21.3-54.2); Mean Corpuscular HGB Conc 32.9 GM/DL (32-36); Mean Corpuscular Volume 89.1 FL (87-102); Mean Platelet Volume 10.9 FL (9.6-12.0); Monocytes % 3.3 % (1.7-12.7); NRBC # 0.13 10*3/uL; Neutrophils % 86.3 % (38.7-73.9); Platelet Count 238 T/CUMM (130-400); Red Blood Count 2.39 MC/CUMM (3.8-5.5); Red Cell Distribution Width 17.7 % (9.3-17.3)
[2020-03-02 05:23] LABS: Hypochromasia 2+; Lymphocytes 3 % (20-55); Microcytosis 1+; Platelet Estimate Adequate; Segmented Neutrophils 94 % (50-85); Total Cells Counted 100
[2020-03-02] MEDS: PHENYLEPHRINE INJ 160 MG in SODIUM CHLORIDE 0.9% 234 ML IV PRN ×3 (05:25→22:00)
[2020-03-02 06:34] LABS: Calcium 7.4 MG/DL (8.5-10.1); Osmolality,Calculated 322.7 MOS/KG (273-304)
[2020-03-02] MEDS: LEVOTHYROXINE 137 MCG TABLET PO SCH (06:50)
[2020-03-02] MEDS: CETIRIZINE 10 MG TABLET PO SCH (09:09)
[2020-03-02] MEDS: ASCORBIC ACID 500 MG TABLET PO SCH (09:09)
[2020-03-02] MEDS: CHOLECALCIFEROL 1,000 UNIT TABLET PO SCH (09:09)
[2020-03-02] MEDS: FLUoxetine 20 MG CAPSULE PO SCH (09:09)
[2020-03-02] MEDS: FLUTICASONE 50 MCG NASAL SPRAY 16 GM BOTTLE BOTH NARES SCH ×2 (09:10→20:45)
[2020-03-02] MEDS: PANTOPRAZOLE 40 MG VIAL IV SCH ×2 (09:10→20:45)
[2020-03-02] MEDS: fentaNYL INJ 2,500 MCG in SODIUM CHLORIDE 0.9% 75 ML IV PRN ×2 (09:10→22:00)
[2020-03-02] MEDS ORDERED: FUROSEMIDE 40 MG/4 ML VIAL IV ONE (10:30)
[2020-03-02] MEDS: DIGOXIN 0.125 MG TABLET PO SCH (12:21)
[2020-03-02] MEDS: VANCOMYCIN INJ 1,500 MG in SODIUM CHLORIDE 0.9% 500 ML IV SCH (14:34)
[2020-03-02] MEDS: IBUPROFEN 100 MG/5 ML UDCUP PO PRN (15:35)
[2020-03-02] MEDS: FLUCONAZOLE INJ 400 MG in PREMIX 1 EACH IV SCH (18:10)
[2020-03-02] MEDS: ACETAMINOPHEN 325 MG/10.15 ML UDCUP PO PRN (20:45)
[2020-03-02 21:05] LABS: Hematocrit 23.4 VOL% (35.7-47.0); Hemoglobin 7.7 GM/DL (12.0-16.0)
[2020-03-02 21:31] LABS: Calcium 7.3 MG/DL (8.5-10.1); Osmolality,Calculated 324.4 MOS/KG (273-304)
[2020-03-03] MEDS: ALBUTEROL INHALER 18 GM INH SCH ×4 (00:22→18:20)
[2020-03-03] MEDS: INSULIN REGULAR 100 UNIT/ML SUBCUT SCH ×4 (00:22→18:19)
[2020-03-03 02:38] LABS: ABG Base Excess 1.2 MMOL/L (-2.5-2.5); ABG HCO3 25.3 MMOL/L (20-26); ABG Oxygen Saturation 89.1 % (95-100); ABG PCO2 57.1 MM HG (35-48); ABG PH 7.302 (7.35-7.45); ABG PO2 57.4 MM HG (80-95); ABG TCO2 26.7 MMOL/L (23-27); Allen Test Positive; Pt O2 Delivery Device Ventilator
[2020-03-03 03:44] LABS: Basophils % 0.2 % (0.0-0.8); Eosinophils % 0.2 % (0.00-10.9); Hematocrit 22.6 VOL% (35.7-47.0); Hemoglobin 7.4 GM/DL (12.0-16.0); Immature Granulocytes % 6.8 %; Immature Granulocytes Absolute 1.69 #; Lymphocytes # 1.2 10*3/uL (1.4-4.0); Lymphocytes % 4.7 % (21.3-54.2); Mean Corpuscular HGB Conc 32.7 GM/DL (32-36); Mean Corpuscular Volume 89.7 FL (87-102); Mean Platelet Volume 10.5 FL (9.6-12.0); Monocytes % 2.4 % (1.7-12.7); NRBC # 0.66 10*3/uL; Neutrophils % 85.7 % (38.7-73.9); Platelet Count 167 T/CUMM (130-400); Red Blood Count 2.52 MC/CUMM (3.8-5.5); Red Cell Distribution Width 16.9 % (9.3-17.3)
[2020-03-03] MEDS: MEROPENEM 500 MG in SODIUM CHLORIDE 0.9% 100 ML IV SCH (04:03)
[2020-03-03 04:06] LABS: Calcium 7.6 MG/DL (8.5-10.1); Osmolality,Calculated 325.3 MOS/KG (273-304)
[2020-03-03 04:36] LABS: Band Neutrophils 1 % (0-10); Lymphocytes 1 % (20-55); Nucleated Red Blood Cells 4 (0-5); Segmented Neutrophils 95 % (50-85); Total Cells Counted 100
[2020-03-03 04:38] LABS: Microcytosis 1+; Platelet Estimate Normal
[2020-03-03 04:39] LABS: Anisocytosis Slight; Hypochromasia Slight; Stomatocytes 1+
[2020-03-03 04:40] LABS: Polychromasia Slight
[2020-03-03 04:42] LABS: Basophilic Stippling Slight
[2020-03-03] MEDS: LEVOTHYROXINE 137 MCG TABLET PO SCH (05:58)
[2020-03-03] MEDS ORDERED: VANCOMYCIN INJ 1,500 MG in SODIUM CHLORIDE 0.9% 500 ML IV SCH (08:00)
[2020-03-03] MEDS: PANTOPRAZOLE 40 MG VIAL IV SCH ×2 (08:23→20:55)
[2020-03-03] MEDS: FLUoxetine 20 MG CAPSULE PO SCH (08:23)
[2020-03-03] MEDS: CETIRIZINE 10 MG TABLET PO SCH (08:26)
[2020-03-03] MEDS: ASCORBIC ACID 500 MG TABLET PO SCH (08:26)
[2020-03-03] MEDS: ZINC SULFATE 220 MG CAPSULE PO SCH (08:26)
[2020-03-03] MEDS: CHOLECALCIFEROL 1,000 UNIT TABLET PO SCH (08:26)
[2020-03-03] MEDS: FLUTICASONE 50 MCG NASAL SPRAY 16 GM BOTTLE BOTH NARES SCH ×2 (08:26→20:55)
[2020-03-03] MEDS: fentaNYL INJ 2,500 MCG in SODIUM CHLORIDE 0.9% 75 ML IV PRN ×2 (08:27→19:29)
[2020-03-03] MEDS: PHENYLEPHRINE INJ 160 MG in SODIUM CHLORIDE 0.9% 234 ML IV PRN (09:05)
[2020-03-03] MEDS ORDERED: DIGOXIN 0.5 MG/2 ML AMP ONE (09:09)
[2020-03-03] MEDS ORDERED: DIGOXIN 0.5 MG/2 ML AMP IV ONE (09:10)
[2020-03-03] MEDS ORDERED: SODIUM CHLORIDE 0.9% 1,000 ML IV ONE (09:12)
[2020-03-03] MEDS ORDERED: dilTIAZem Drip 125 MG/125 ML PREMIX IV SCH (09:13)
[2020-03-03] MEDS: cefTRIAXone 1,000 MG in SYRINGE 1 EACH IV SCH (10:53)
[2020-03-03] MEDS ORDERED: LACTATED RINGERS 1,000 ML IV SCH (11:00)
[2020-03-03] MEDS: metroNIDAZOLE INJ 500 MG in PREMIX 1 EACH IV SCH ×2 (12:08→19:10)
[2020-03-03] MEDS: DIGOXIN 0.125 MG TABLET PO SCH (12:10)
[2020-03-03 12:25] LABS: Hematocrit 21.3 VOL% (35.7-47.0); Hemoglobin 6.9 GM/DL (12.0-16.0)
[2020-03-03] MEDS: DEXTROSE 5% 1,000 ML IV SCH (12:26)
[2020-03-03] MEDS ORDERED: FUROSEMIDE 40 MG/4 ML VIAL IV ONE (12:36)
[2020-03-03] MEDS ORDERED: SODIUM CHLORIDE 0.9% 1,000 ML IV PRN (12:37)
[2020-03-03] MEDS: ACETAMINOPHEN 325 MG/10.15 ML UDCUP PO PRN (16:26)
[2020-03-03 20:16] LABS: Hemoglobin 6.9 GM/DL (12.0-16.0)
[2020-03-04] MEDS: ALBUTEROL INHALER 18 GM INH SCH ×4 (00:21→18:01)
[2020-03-04] MEDS: INSULIN REGULAR 100 UNIT/ML SUBCUT SCH ×4 (00:21→17:24)
[2020-03-04] MEDS: PHENYLEPHRINE INJ 160 MG in SODIUM CHLORIDE 0.9% 234 ML IV PRN ×2 (00:41→21:30)
[2020-03-04] MEDS: DEXTROSE 5% 1,000 ML IV SCH ×4 (01:46→22:24)
[2020-03-04] MEDS: ACETAMINOPHEN 325 MG/10.15 ML UDCUP PO PRN (02:13)
[2020-03-04] MEDS: fentaNYL INJ 2,500 MCG in SODIUM CHLORIDE 0.9% 75 ML IV PRN ×4 (03:55→19:15)
[2020-03-04 04:30] LABS: ABG Base Excess 2.3 MMOL/L (-2.5-2.5); ABG HCO3 26.2 MMOL/L (20-26); ABG Oxygen Saturation 82.6 % (95-100); ABG PCO2 48.1 MM HG (35-48); ABG PH 7.375 (7.35-7.45); ABG PO2 44.5 MM HG (80-95); ABG TCO2 25.5 MMOL/L (23-27); Allen Test Positive; Pt O2 Delivery Device Ventilator
[2020-03-04] MEDS: metroNIDAZOLE INJ 500 MG in PREMIX 1 EACH IV SCH ×3 (04:37→20:23)
[2020-03-04 05:07] LABS: Calcium 7.7 MG/DL (8.5-10.1); Osmolality,Calculated 316.3 MOS/KG (273-304)
[2020-03-04 05:10] LABS: Basophils # 0.1 10*3/uL (0.0-0.2); Basophils % 0.5 % (0.0-0.8); Eosinophils # 0.4 10*3/uL (0.0-0.87); Eosinophils % 2.2 % (0.00-10.9); Hematocrit 32.7 VOL% (35.7-47.0); Immature Granulocytes Absolute 1.23 #; Lymphocytes # 0.8 10*3/uL (1.4-4.0); Lymphocytes % 3.8 % (21.3-54.2); Mean Corpuscular HGB Conc 32.1 GM/DL (32-36); Mean Corpuscular Volume 91.6 FL (87-102); Mean Platelet Volume 10.3 FL (9.6-12.0); Monocytes % 1.5 % (1.7-12.7); NRBC # 0.41 10*3/uL; Platelet Count 93 T/CUMM (130-400); Red Blood Count 3.57 MC/CUMM (3.8-5.5); Red Cell Distribution Width 15.9 % (9.3-17.3); White Blood Count 20.4 T/CUMM (4-12)
[2020-03-04 05:13] LABS: Hemoglobin 10.5 GM/DL (12.0-16.0)
[2020-03-04] MEDS: LEVOTHYROXINE 137 MCG TABLET PO SCH (05:23)
[2020-03-04 05:30] LABS: Ferritin 3317.3 ng/ml (8-252)
[2020-03-04] MEDS: FLUTICASONE 50 MCG NASAL SPRAY 16 GM BOTTLE BOTH NARES SCH ×2 (08:24→20:25)
[2020-03-04] MEDS: ASCORBIC ACID 500 MG TABLET PO SCH (08:24)
[2020-03-04] MEDS: FLUoxetine 20 MG CAPSULE PO SCH (08:24)
[2020-03-04] MEDS: PANTOPRAZOLE 40 MG VIAL IV SCH ×2 (08:25→20:25)
[2020-03-04] MEDS: CETIRIZINE 10 MG TABLET PO SCH (08:25)
[2020-03-04] MEDS: CHOLECALCIFEROL 1,000 UNIT TABLET PO SCH (08:25)
[2020-03-04 08:35] LABS: Band Neutrophils 3 % (0-10); Eosinophils 3 % (0-10); Lymphocytes 3 % (20-55); Segmented Neutrophils 90 % (50-85)
[2020-03-04 08:37] LABS: Anisocytosis 1+; Giant Platelets 1+; Macrocytosis 1+; Platelet Estimate Decreased
[2020-03-04 08:38] LABS: Total Cells Counted 100
[2020-03-04] MEDS: cefTRIAXone 1,000 MG in SYRINGE 1 EACH IV SCH (09:31)
[2020-03-04 13:00] LABS: Hemoglobin 10.2 GM/DL (12.0-16.0)
[2020-03-04 13:01] LABS: Hematocrit 31.9 VOL% (35.7-47.0)
[2020-03-04] MEDS: DIGOXIN 0.125 MG TABLET PO SCH (13:03)
[2020-03-04] MEDS: FUROSEMIDE 40 MG/4 ML VIAL IV SCH (15:23)
[2020-03-05] MEDS: INSULIN REGULAR 100 UNIT/ML SUBCUT SCH ×4 (00:43→17:08)
[2020-03-05] MEDS: ALBUTEROL INHALER 18 GM INH SCH ×4 (01:00→19:12)
[2020-03-05 01:04] LABS: Hematocrit 28.4 VOL% (35.7-47.0); Hemoglobin 9.3 GM/DL (12.0-16.0)
[2020-03-05] MEDS: DEXTROSE 5% 1,000 ML IV SCH ×4 (01:45→21:33)
[2020-03-05] MEDS: fentaNYL INJ 2,500 MCG in SODIUM CHLORIDE 0.9% 75 ML IV PRN ×5 (03:06→22:59)
[2020-03-05] MEDS: metroNIDAZOLE INJ 500 MG in PREMIX 1 EACH IV SCH ×3 (04:16→21:04)
[2020-03-05 05:08] LABS: ABG Base Excess 0.3 MMOL/L (-2.5-2.5); ABG HCO3 24.5 MMOL/L (20-26); ABG Oxygen Saturation 86.3 % (95-100); ABG PCO2 64.9 MM HG (35-48); ABG PH 7.258 (7.35-7.45); ABG PO2 55.2 MM HG (80-95); ABG TCO2 26.7 MMOL/L (23-27); Allen Test Positive; Pt O2 Delivery Device Ventilator
[2020-03-05 05:10] LABS: Basophils % 0.3 % (0.0-0.8); Eosinophils # 0.5 10*3/uL (0.0-0.87); Eosinophils % 3.2 % (0.00-10.9); Hematocrit 32.3 VOL% (35.7-47.0); Hemoglobin 10.6 GM/DL (12.0-16.0); Immature Granulocytes % 4.5 %; Lymphocytes # 0.5 10*3/uL (1.4-4.0); Lymphocytes % 3.2 % (21.3-54.2); Mean Corpuscular HGB Conc 32.8 GM/DL (32-36); Mean Corpuscular Volume 92.3 FL (87-102); Mean Platelet Volume 11.4 FL (9.6-12.0); Monocytes % 1.1 % (1.7-12.7); NRBC # 0.26 10*3/uL; Neutrophils % 87.7 % (38.7-73.9); Platelet Count 44 T/CUMM (130-400); Red Cell Distribution Width 16.4 % (9.3-17.3); White Blood Count 15.6 T/CUMM (4-12)
[2020-03-05 05:20] LABS: Albumin 1.3 G/DL (3.4-5.0); Bilirubin,Total 0.5 MG/DL (0.2-1.0); Calcium 7.8 MG/DL (8.5-10.1); Osmolality,Calculated 299.4 MOS/KG (273-304); Total Protein 4.7 G/DL (6.4-8.3)
[2020-03-05] MEDS: ROCURONIUM 500 MG in SODIUM CHLORIDE 0.9% 500 ML IV PRN ×3 (05:20→18:43)
[2020-03-05] MEDS: LEVOTHYROXINE 137 MCG TABLET PO SCH (05:39)
[2020-03-05 07:28] LABS: Band Neutrophils 7 % (0-10); Lymphocytes 4 % (20-55); Metamyelocytes 8 %; Nucleated Red Blood Cells 1 (0-5); Polychromasia Slight; Segmented Neutrophils 77 % (50-85); Total Cells Counted 100
[2020-03-05 07:29] LABS: Platelet Estimate Decreased
[2020-03-05] MEDS: FUROSEMIDE 40 MG/4 ML VIAL IV SCH ×2 (08:00→15:54)
[2020-03-05] MEDS: FLUoxetine 20 MG CAPSULE PO SCH (08:00)
[2020-03-05] MEDS: ZINC SULFATE 220 MG CAPSULE PO SCH (08:00)
[2020-03-05] MEDS: FLUTICASONE 50 MCG NASAL SPRAY 16 GM BOTTLE BOTH NARES SCH ×2 (08:01→21:04)
[2020-03-05] MEDS: PANTOPRAZOLE 40 MG VIAL IV SCH ×2 (08:01→21:04)
[2020-03-05] MEDS: ASCORBIC ACID 500 MG TABLET PO SCH (08:01)
[2020-03-05] MEDS: CHOLECALCIFEROL 1,000 UNIT TABLET PO SCH (08:01)
[2020-03-05] MEDS: CETIRIZINE 10 MG TABLET PO SCH (08:01)
[2020-03-05 09:33] LABS: Basophils # 0.1 10*3/uL (0.0-0.2); Basophils % 0.4 % (0.0-0.8); Eosinophils # 0.5 10*3/uL (0.0-0.87); Eosinophils % 3.2 % (0.00-10.9); Hematocrit 33.1 VOL% (35.7-47.0); Hemoglobin 10.6 GM/DL (12.0-16.0); Immature Granulocytes % 5.3 %; Immature Granulocytes Absolute 0.88 #; Lymphocytes # 0.5 10*3/uL (1.4-4.0); Lymphocytes % 2.9 % (21.3-54.2); Mean Corpuscular Volume 92.2 FL (87-102); Mean Platelet Volume 12.1 FL (9.6-12.0); Monocytes % 0.9 % (1.7-12.7); NRBC # 0.24 10*3/uL; Neutrophils % 87.3 % (38.7-73.9); Red Blood Count 3.59 MC/CUMM (3.8-5.5); Red Cell Distribution Width 16.2 % (9.3-17.3); White Blood Count 16.5 T/CUMM (4-12)
[2020-03-05 09:34] LABS: Platelet Count 34 T/CUMM (130-400)
[2020-03-05] MEDS: cefTRIAXone 1,000 MG in SYRINGE 1 EACH IV SCH (10:10)
[2020-03-05] MEDS: POTASSIUM CHLORIDE RIDER 20 MEQ in PREMIX 1 EACH IV PRN (10:14)
[2020-03-05 11:22] LABS: Hematocrit 31.8 VOL% (35.7-47.0); Hemoglobin 10.2 GM/DL (12.0-16.0)
[2020-03-05] MEDS: POTASSIUM CHLORIDE RIDER 10 MEQ in PREMIX 1 EACH IV PRN (12:16)
[2020-03-05] MEDS: methylPREDNISolone SOD SUC 40 MG/1 ML VIAL IV SCH (12:24)
[2020-03-05 12:53] LABS: INR 1.1; PT Patient Result 11.8 SECS (9.8-11.9)
[2020-03-05 12:58] LABS: Partial Thromboplastin Time 30.2 SECS (23.9-33.8)
[2020-03-05 13:07] LABS: Band Neutrophils 4 % (0-10); Eosinophils 2 % (0-10); Lymphocytes 2 % (20-55); Platelet Estimate Decreased; Polychromasia Slight; Segmented Neutrophils 87 % (50-85); Total Cells Counted 100
[2020-03-05] MEDS: DIGOXIN 0.125 MG TABLET PO SCH (13:20)
[2020-03-05 13:25] LABS: ABG Base Excess -1.1 MMOL/L (-2.5-2.5); ABG HCO3 23.4 MMOL/L (20-26); ABG Oxygen Saturation 94.8 % (95-100); ABG PCO2 53.6 MM HG (35-48); ABG PH 7.295 (7.35-7.45); ABG PO2 70.8 MM HG (80-95)
[2020-03-06] MEDS: PHENYLEPHRINE INJ 160 MG in SODIUM CHLORIDE 0.9% 234 ML IV PRN (00:04)
[2020-03-06] MEDS: INSULIN REGULAR 100 UNIT/ML SUBCUT SCH ×4 (01:14→18:03)
[2020-03-06] MEDS: ALBUTEROL INHALER 18 GM INH SCH ×4 (01:14→18:04)
[2020-03-06] MEDS: methylPREDNISolone SOD SUC 40 MG/1 ML VIAL IV SCH ×2 (01:14→13:37)
[2020-03-06] MEDS: ROCURONIUM 500 MG in SODIUM CHLORIDE 0.9% 500 ML IV PRN ×2 (01:47→08:50)
[2020-03-06] MEDS: fentaNYL INJ 2,500 MCG in SODIUM CHLORIDE 0.9% 75 ML IV PRN ×5 (03:56→23:23)
[2020-03-06] MEDS: metroNIDAZOLE INJ 500 MG in PREMIX 1 EACH IV SCH ×2 (04:01→13:37)
[2020-03-06 04:27] LABS: ABG Base Excess -0.3 MMOL/L (-2.5-2.5); ABG HCO3 26.4 MMOL/L (20-26); ABG Oxygen Saturation 90.7 % (95-100); ABG PCO2 52.6 MM HG (35-48); ABG PH 7.318 (7.35-7.45); ABG PO2 61.4 MM HG (80-95); Allen Test Positive; Pt O2 Delivery Device Ventilator
[2020-03-06 04:40] LABS: Basophils # 0.1 10*3/uL (0.0-0.2); Basophils % 0.3 % (0.0-0.8); Eosinophils % 0.1 % (0.00-10.9); Hematocrit 32.3 VOL% (35.7-47.0); Hemoglobin 10.7 GM/DL (12.0-16.0); Immature Granulocytes % 6.6 %; Immature Granulocytes Absolute 1.16 #; Lymphocytes # 0.3 10*3/uL (1.4-4.0); Lymphocytes % 1.6 % (21.3-54.2); Mean Corpuscular HGB Conc 33.1 GM/DL (32-36); Mean Corpuscular Volume 90.5 FL (87-102); Monocytes % 1.2 % (1.7-12.7); Neutrophils % 90.2 % (38.7-73.9); Red Blood Count 3.57 MC/CUMM (3.8-5.5); Red Cell Distribution Width 16.7 % (9.3-17.3); White Blood Count 17.7 T/CUMM (4-12)
[2020-03-06 04:53] LABS: Albumin 1.3 G/DL (3.4-5.0); Bilirubin,Total 0.8 MG/DL (0.2-1.0); Calcium 7.7 MG/DL (8.5-10.1); Osmolality,Calculated 296.8 MOS/KG (273-304); Total Protein 5.1 G/DL (6.4-8.3)
[2020-03-06 04:59] LABS: Platelet Count 31 T/CUMM (130-400)
[2020-03-06 05:05] LABS: Band Neutrophils 2 % (0-10); Hypochromasia Slight; Lymphocytes 2 % (20-55); Nucleated Red Blood Cells 1 (0-5); Platelet Estimate Decreased; Segmented Neutrophils 95 % (50-85); Total Cells Counted 100
[2020-03-06 05:06] LABS: Macrocytosis Slight; Polychromasia Slight
[2020-03-06] MEDS: LEVOTHYROXINE 137 MCG TABLET PO SCH (06:13)
[2020-03-06] MEDS: ASCORBIC ACID 500 MG TABLET PO SCH (08:16)
[2020-03-06] MEDS: FLUoxetine 20 MG CAPSULE PO SCH (08:16)
[2020-03-06] MEDS: CETIRIZINE 10 MG TABLET PO SCH (08:16)
[2020-03-06] MEDS: ZINC SULFATE 220 MG CAPSULE PO SCH (08:16)
[2020-03-06] MEDS: CHOLECALCIFEROL 1,000 UNIT TABLET PO SCH (08:16)
[2020-03-06] MEDS: FLUTICASONE 50 MCG NASAL SPRAY 16 GM BOTTLE BOTH NARES SCH ×2 (08:17→20:15)
[2020-03-06] MEDS: PANTOPRAZOLE 40 MG VIAL IV SCH ×2 (08:17→20:14)
[2020-03-06] MEDS: FUROSEMIDE 40 MG/4 ML VIAL IV SCH ×2 (08:17→16:14)
[2020-03-06] MEDS: DEXTROSE 5% 1,000 ML IV SCH ×2 (09:47→18:04)
[2020-03-06] MEDS: cefTRIAXone 1,000 MG in SYRINGE 1 EACH IV SCH (09:48)
[2020-03-06] MEDS: DIGOXIN 0.125 MG TABLET PO SCH (13:32)
[2020-03-06] MEDS: FLUCONAZOLE INJ 400 MG in PREMIX 1 EACH IV SCH (16:14)
[2020-03-07] MEDS: DEXTROSE 5% 1,000 ML IV SCH ×3 (00:25→13:44)
[2020-03-07] MEDS: methylPREDNISolone SOD SUC 40 MG/1 ML VIAL IV SCH ×2 (00:33→13:43)
[2020-03-07] MEDS: INSULIN REGULAR 100 UNIT/ML SUBCUT SCH ×4 (00:34→17:35)
[2020-03-07] MEDS: ALBUTEROL INHALER 18 GM INH SCH ×4 (01:06→18:14)
[2020-03-07 04:54] LABS: Basophils % 0.2 % (0.0-0.8); Hematocrit 28.2 VOL% (35.7-47.0); Hemoglobin 9.6 GM/DL (12.0-16.0); Immature Granulocytes % 7.1 %; Immature Granulocytes Absolute 0.68 #; Lymphocytes # 0.3 10*3/uL (1.4-4.0); Lymphocytes % 2.7 % (21.3-54.2); Mean Corpuscular Volume 90.7 FL (87-102); Monocytes % 2.6 % (1.7-12.7); NRBC # 0.14 10*3/uL; Neutrophils % 87.4 % (38.7-73.9); Red Blood Count 3.11 MC/CUMM (3.8-5.5); Red Cell Distribution Width 16.7 % (9.3-17.3); White Blood Count 9.6 T/CUMM (4-12)
[2020-03-07 04:56] LABS: Platelet Count 34 T/CUMM (130-400)
[2020-03-07 05:11] LABS: Calcium 7.5 MG/DL (8.5-10.1)
[2020-03-07 05:14] LABS: ABG Base Excess 1.1 MMOL/L (-2.5-2.5); ABG HCO3 25.3 MMOL/L (20-26); ABG Oxygen Saturation 95.5 % (95-100); ABG PCO2 56.5 MM HG (35-48); ABG PH 7.308 (7.35-7.45); ABG PO2 79.3 MM HG (80-95)
[2020-03-07 05:29] LABS: Ferritin 1284.8 ng/ml (8-252)
[2020-03-07 05:40] LABS: Lymphocytes 3 % (20-55); Nucleated Red Blood Cells 2 (0-5); Platelet Estimate Decreased; Segmented Neutrophils 95 % (50-85); Total Cells Counted 100
[2020-03-07 05:41] LABS: Hypochromasia 1+; Macrocytosis Slight; Polychromasia Slight
[2020-03-07] MEDS: LEVOTHYROXINE 137 MCG TABLET PO SCH (06:15)
[2020-03-07] MEDS: fentaNYL INJ 2,500 MCG in SODIUM CHLORIDE 0.9% 75 ML IV PRN ×3 (06:15→18:11)
[2020-03-07] MEDS: CHOLECALCIFEROL 1,000 UNIT TABLET PO SCH (08:39)
[2020-03-07] MEDS: PANTOPRAZOLE 40 MG VIAL IV SCH ×2 (08:39→21:00)
[2020-03-07] MEDS: ASCORBIC ACID 500 MG TABLET PO SCH (08:39)
[2020-03-07] MEDS: FUROSEMIDE 40 MG/4 ML VIAL IV SCH ×2 (08:39→17:35)
[2020-03-07] MEDS: FLUoxetine 20 MG CAPSULE PO SCH (08:39)
[2020-03-07] MEDS: ZINC SULFATE 220 MG CAPSULE PO SCH (08:39)
[2020-03-07] MEDS: FLUTICASONE 50 MCG NASAL SPRAY 16 GM BOTTLE BOTH NARES SCH ×2 (08:40→20:59)
[2020-03-07] MEDS: CETIRIZINE 10 MG TABLET PO SCH (08:40)
[2020-03-07] MEDS: cefTRIAXone 1,000 MG in SYRINGE 1 EACH IV SCH (10:00)
[2020-03-07] MEDS: DIGOXIN 0.125 MG TABLET PO SCH (13:45)
[2020-03-07 15:02] LABS: Hepatitis B Core IgM Quant 0.29 Index; Hepatitis B Surface Ag Quant < 0.10 Index; Hepatitis B Surface Ag Result Negative (Negative); Hepatitis C Virus Ab Quant 0.08 Index; Hepatitis C Virus Ab Result Negative (Negative)
[2020-03-07] MEDS: FLUCONAZOLE INJ 400 MG in PREMIX 1 EACH IV SCH (17:03)
[2020-03-08] MEDS: DEXTROSE 5% 1,000 ML IV SCH ×3 (00:21→16:56)
[2020-03-08] MEDS: INSULIN REGULAR 100 UNIT/ML SUBCUT SCH ×4 (00:22→18:23)
[2020-03-08] MEDS: ALBUTEROL INHALER 18 GM INH SCH ×4 (00:22→20:03)
[2020-03-08] MEDS: methylPREDNISolone SOD SUC 40 MG/1 ML VIAL IV SCH ×2 (00:22→12:43)
[2020-03-08] MEDS: fentaNYL INJ 2,500 MCG in SODIUM CHLORIDE 0.9% 75 ML IV PRN ×2 (02:02→13:40)
[2020-03-08 04:39] LABS: Basophils % 0.1 % (0.0-0.8); Hematocrit 28.1 VOL% (35.7-47.0); Hemoglobin 9.2 GM/DL (12.0-16.0); Immature Granulocytes % 6.6 %; Immature Granulocytes Absolute 0.61 #; Lymphocytes # 0.3 10*3/uL (1.4-4.0); Lymphocytes % 3.1 % (21.3-54.2); Mean Corpuscular HGB Conc 32.7 GM/DL (32-36); Mean Corpuscular Volume 91.5 FL (87-102); Monocytes % 3.9 % (1.7-12.7); NRBC # 0.22 10*3/uL; Neutrophils % 86.3 % (38.7-73.9); Red Blood Count 3.07 MC/CUMM (3.8-5.5); Red Cell Distribution Width 17.1 % (9.3-17.3); White Blood Count 9.3 T/CUMM (4-12)
[2020-03-08 04:40] LABS: ABG Base Excess -2.8 MMOL/L (-2.5-2.5); ABG HCO3 22.1 MMOL/L (20-26); ABG Oxygen Saturation 99.6 % (95-100); ABG PCO2 59.4 MM HG (35-48); ABG PH 7.238 (7.35-7.45); ABG TCO2 23.7 MMOL/L (23-27); Allen Test Positive; Pt O2 Delivery Device Ventilator
[2020-03-08 05:01] LABS: Osmolality,Calculated 283.7 MOS/KG (273-304)
[2020-03-08 05:04] LABS: Platelet Count 18 T/CUMM (130-400)
[2020-03-08 05:11] LABS: Band Neutrophils 3 % (0-10); Hypochromasia 1+; Lymphocytes 4 % (20-55); Macrocytosis Slight; Nucleated Red Blood Cells 2 (0-5); Platelet Estimate Decreased; Segmented Neutrophils 91 % (50-85); Total Cells Counted 100
[2020-03-08 05:12] LABS: Polychromasia Slight
[2020-03-08] MEDS: LEVOTHYROXINE 137 MCG TABLET PO SCH (05:46)
[2020-03-08] MEDS: ASCORBIC ACID 500 MG TABLET PO SCH (08:18)
[2020-03-08] MEDS: CETIRIZINE 10 MG TABLET PO SCH (08:18)
[2020-03-08] MEDS: CHOLECALCIFEROL 1,000 UNIT TABLET PO SCH (08:18)
[2020-03-08] MEDS: FLUoxetine 20 MG CAPSULE PO SCH (08:18)
[2020-03-08] MEDS: FLUTICASONE 50 MCG NASAL SPRAY 16 GM BOTTLE BOTH NARES SCH ×2 (08:20→20:43)
[2020-03-08] MEDS: FUROSEMIDE 40 MG/4 ML VIAL IV SCH (08:20)
[2020-03-08] MEDS: APIXABAN 5 MG TABLET NG SCH (08:25)
[2020-03-08] MEDS: FAMOTIDINE 20 MG/2 ML VIAL IV SCH ×2 (08:25→20:43)
[2020-03-08] MEDS: cefTRIAXone 1,000 MG in SYRINGE 1 EACH IV SCH (09:36)
[2020-03-08] MEDS: FLUCONAZOLE INJ 400 MG in PREMIX 1 EACH IV SCH (16:05)
[2020-03-09] MEDS: INSULIN REGULAR 100 UNIT/ML SUBCUT SCH ×5 (00:09→23:59)
[2020-03-09] MEDS: methylPREDNISolone SOD SUC 40 MG/1 ML VIAL IV SCH ×2 (00:21→13:17)
[2020-03-09] MEDS: fentaNYL INJ 2,500 MCG in SODIUM CHLORIDE 0.9% 75 ML IV PRN (01:00)
[2020-03-09] MEDS: ALBUTEROL INHALER 18 GM INH SCH ×4 (01:14→19:37)
[2020-03-09 04:36] LABS: Allen Test Positive; Pt O2 Delivery Device Ventilator
[2020-03-09 04:40] LABS: ABG Base Excess 1.8 MMOL/L (-2.5-2.5); ABG HCO3 26.1 MMOL/L (20-26); ABG Oxygen Saturation 98.5 % (95-100); ABG PCO2 46.4 MM HG (35-48); ABG PH 7.378 (7.35-7.45); ABG TCO2 25.5 MMOL/L (23-27)
[2020-03-09 04:50] LABS: Basophils % 0.2 % (0.0-0.8); Eosinophils % 0.2 % (0.00-10.9); Hematocrit 25.3 VOL% (35.7-47.0); Hemoglobin 8.2 GM/DL (12.0-16.0); Immature Granulocytes % 3.9 %; Immature Granulocytes Absolute 0.34 #; Lymphocytes # 0.2 10*3/uL (1.4-4.0); Lymphocytes % 2.1 % (21.3-54.2); Mean Corpuscular HGB Conc 32.4 GM/DL (32-36); Mean Corpuscular Volume 90.7 FL (87-102); Monocytes % 3.5 % (1.7-12.7); NRBC # 0.09 10*3/uL; Neutrophils % 90.1 % (38.7-73.9); Red Blood Count 2.79 MC/CUMM (3.8-5.5); Red Cell Distribution Width 17.1 % (9.3-17.3); White Blood Count 8.6 T/CUMM (4-12)
[2020-03-09 04:52] LABS: Platelet Count 37 T/CUMM (130-400)
[2020-03-09 05:27] LABS: Calcium 7.5 MG/DL (8.5-10.1); Osmolality,Calculated 292.1 MOS/KG (273-304)
[2020-03-09 05:37] LABS: Band Neutrophils 4 % (0-10); Lymphocytes 5 % (20-55); Segmented Neutrophils 87 % (50-85); Total Cells Counted 100
[2020-03-09 05:38] LABS: Hypochromasia 1+; Macrocytosis Slight; Polychromasia Slight
[2020-03-09 05:39] LABS: Platelet Estimate Decreased
[2020-03-09] MEDS: POTASSIUM CHLORIDE RIDER 20 MEQ in PREMIX 1 EACH IV PRN (05:39)
[2020-03-09] MEDS: LEVOTHYROXINE 137 MCG TABLET PO SCH (05:40)
[2020-03-09] MEDS: DEXTROSE 5% 1,000 ML IV SCH ×3 (08:50→21:13)
[2020-03-09] MEDS: ZINC SULFATE 220 MG CAPSULE PO SCH (08:52)
[2020-03-09] MEDS: FLUoxetine 20 MG CAPSULE PO SCH (08:52)
[2020-03-09] MEDS: CHOLECALCIFEROL 1,000 UNIT TABLET PO SCH (08:52)
[2020-03-09] MEDS: ASCORBIC ACID 500 MG TABLET PO SCH (08:53)
[2020-03-09] MEDS: FUROSEMIDE 40 MG/4 ML VIAL IV SCH (08:55)
[2020-03-09] MEDS: FAMOTIDINE 20 MG/2 ML VIAL IV SCH ×2 (08:56→20:37)
[2020-03-09] MEDS: FLUTICASONE 50 MCG NASAL SPRAY 16 GM BOTTLE BOTH NARES SCH ×2 (09:19→20:37)
[2020-03-09] MEDS: cefTRIAXone 1,000 MG in SYRINGE 1 EACH IV SCH (10:10)
[2020-03-09] MEDS: CETIRIZINE 10 MG TABLET PO SCH (13:17)
[2020-03-09] MEDS: FLUCONAZOLE INJ 400 MG in PREMIX 1 EACH IV SCH (15:45)
[2020-03-10] MEDS: ALBUTEROL INHALER 18 GM INH SCH ×4 (00:01→18:18)
[2020-03-10] MEDS: methylPREDNISolone SOD SUC 40 MG/1 ML VIAL IV SCH ×2 (00:05→12:30)
[2020-03-10 03:54] LABS: Basophils % 0.2 % (0.0-0.8); Eosinophils % 0.2 % (0.00-10.9); Hematocrit 27.8 VOL% (35.7-47.0); Hemoglobin 9.3 GM/DL (12.0-16.0); Immature Granulocytes % 4.1 %; Lymphocytes # 0.5 10*3/uL (1.4-4.0); Lymphocytes % 4.2 % (21.3-54.2); Mean Corpuscular HGB Conc 33.5 GM/DL (32-36); Mean Platelet Volume 10.9 FL (9.6-12.0); Monocytes % 2.2 % (1.7-12.7); NRBC # 0.05 10*3/uL; Neutrophils % 89.1 % (38.7-73.9); Red Blood Count 3.09 MC/CUMM (3.8-5.5); Red Cell Distribution Width 17.9 % (9.3-17.3)
[2020-03-10 03:59] LABS: Platelet Count 80 T/CUMM (130-400); White Blood Count 12.3 T/CUMM (4-12)
[2020-03-10 04:15] LABS: Albumin 1.8 G/DL (3.4-5.0); Bilirubin,Total 0.6 MG/DL (0.2-1.0); Calcium 7.8 MG/DL (8.5-10.1); Osmolality,Calculated 288.4 MOS/KG (273-304); Total Protein 5.8 G/DL (6.4-8.3)
[2020-03-10 04:24] LABS: Band Neutrophils 2 % (0-10); Eosinophils 1 % (0-10); Lymphocytes 4 % (20-55); Segmented Neutrophils 91 % (50-85); Total Cells Counted 100
[2020-03-10 04:28] LABS: Hypochromasia 2+
[2020-03-10 04:29] LABS: Microcytosis 1+; Platelet Estimate Adequate; Polychromasia Few
[2020-03-10 04:37] LABS: ABG Base Excess 4.9 MMOL/L (-2.5-2.5); ABG HCO3 28.8 MMOL/L (20-26); ABG Oxygen Saturation 95.3 % (95-100); ABG PCO2 46.8 MM HG (35-48); ABG PH 7.416 (7.35-7.45); ABG PO2 73.3 MM HG (80-95); ABG TCO2 27.8 MMOL/L (23-27); Allen Test Positive; Pt O2 Delivery Device Ventilator
[2020-03-10] MEDS: fentaNYL INJ 2,500 MCG in SODIUM CHLORIDE 0.9% 75 ML IV PRN ×2 (04:54→17:55)
[2020-03-10] MEDS: INSULIN REGULAR 100 UNIT/ML SUBCUT SCH ×3 (05:30→18:17)
[2020-03-10] MEDS: LEVOTHYROXINE 137 MCG TABLET PO SCH (06:16)
[2020-03-10] MEDS: FAMOTIDINE 20 MG/2 ML VIAL IV SCH ×2 (08:16→21:06)
[2020-03-10] MEDS: FLUoxetine 20 MG CAPSULE PO SCH (08:17)
[2020-03-10] MEDS: FLUTICASONE 50 MCG NASAL SPRAY 16 GM BOTTLE BOTH NARES SCH ×2 (08:17→21:06)
[2020-03-10] MEDS: ASCORBIC ACID 500 MG TABLET PO SCH (08:18)
[2020-03-10] MEDS: CETIRIZINE 10 MG TABLET PO SCH (08:18)
[2020-03-10] MEDS: CHOLECALCIFEROL 1,000 UNIT TABLET PO SCH (08:18)
[2020-03-10] MEDS: FUROSEMIDE 40 MG/4 ML VIAL IV SCH (08:18)
[2020-03-10] MEDS: cefTRIAXone 1,000 MG in SYRINGE 1 EACH IV SCH (09:01)
[2020-03-10] MEDS: DEXTROSE 5% 1,000 ML IV SCH ×2 (09:33→23:59)
[2020-03-10] MEDS ORDERED: HEPARIN 10,000 UNIT/10 ML VIAL IV SCH (14:15)
[2020-03-10 14:25] LABS: Bacteria,Urine Occasional /HPF (Few); Bilirubin,Urine Negative (Negative); Blood, Urine Negative (Negative); Glucose,Urine (UA) Negative (Negative); Ketones,Urine Negative (Negative); Mucus,Urine Occasional /LPF (Occasional); Nitrite,Urine Negative (Negative); Protein,Urine Negative; RBC,Urine 2 /HPF (0-4); Red Blood Cell Casts,Urine 1 /LPF (<1); Renal Epithelial Cells,Urine Occasional /HPF (<1); Squamous Epithelial Cell,Urine Occasional /HPF (0-10); Urine Appearance CLEAR (Clear); Urine Color Straw (Yellow); Urine Specific Gravity 1.005 (1.001-1.035); Urine Urobilinogen < 2.0 EU/DL (0.2-1.0); WBC,Urine 1 /HPF (0-6)
[2020-03-10] MEDS: FLUCONAZOLE INJ 400 MG in PREMIX 1 EACH IV SCH (15:20)
[2020-03-11] MEDS: INSULIN REGULAR 100 UNIT/ML SUBCUT SCH ×4 (00:20→18:09)
[2020-03-11] MEDS: ALBUTEROL INHALER 18 GM INH SCH ×4 (00:42→18:43)
[2020-03-11] MEDS: methylPREDNISolone SOD SUC 40 MG/1 ML VIAL IV SCH ×2 (00:42→12:57)
[2020-03-11] MEDS: fentaNYL INJ 2,500 MCG in SODIUM CHLORIDE 0.9% 75 ML IV PRN ×2 (02:30→11:32)
[2020-03-11 04:33] LABS: ABG Base Excess 4.2 MMOL/L (-2.5-2.5); ABG HCO3 28.2 MMOL/L (20-26); ABG PCO2 43.4 MM HG (35-48); ABG PH 7.431 (7.35-7.45); ABG PO2 75.4 MM HG (80-95); ABG TCO2 27.2 MMOL/L (23-27); Allen Test Positive; Pt O2 Delivery Device Ventilator
[2020-03-11 04:57] LABS: Basophils % 0.2 % (0.0-0.8); Eosinophils % 0.4 % (0.00-10.9); Hematocrit 23.2 VOL% (35.7-47.0); Immature Granulocytes % 4.6 %; Immature Granulocytes Absolute 0.42 #; Lymphocytes # 0.3 10*3/uL (1.4-4.0); Lymphocytes % 2.9 % (21.3-54.2); Mean Corpuscular HGB Conc 32.8 GM/DL (32-36); Mean Corpuscular Volume 91.7 FL (87-102); Monocytes % 2.2 % (1.7-12.7); Neutrophils % 89.7 % (38.7-73.9); Red Blood Count 2.53 MC/CUMM (3.8-5.5); Red Cell Distribution Width 17.7 % (9.3-17.3); White Blood Count 9.1 T/CUMM (4-12)
[2020-03-11 04:58] LABS: Hemoglobin 7.6 GM/DL (12.0-16.0); Platelet Count 75 T/CUMM (130-400)
[2020-03-11 05:15] LABS: Albumin 1.6 G/DL (3.4-5.0); Bilirubin,Total 0.5 MG/DL (0.2-1.0); Calcium 7.6 MG/DL (8.5-10.1); Osmolality,Calculated 283.5 MOS/KG (273-304)
[2020-03-11 05:27] LABS: Hypochromasia 1+; Lymphocytes 4 % (20-55); Platelet Estimate Decreased; Segmented Neutrophils 92 % (50-85); Total Cells Counted 100
[2020-03-11] MEDS: LEVOTHYROXINE 137 MCG TABLET PO SCH (06:22)
[2020-03-11] MEDS: ZINC SULFATE 220 MG CAPSULE PO SCH (08:06)
[2020-03-11] MEDS: CHOLECALCIFEROL 1,000 UNIT TABLET PO SCH (08:06)
[2020-03-11] MEDS: FLUoxetine 20 MG CAPSULE PO SCH (08:06)
[2020-03-11] MEDS: CETIRIZINE 10 MG TABLET PO SCH (08:06)
[2020-03-11] MEDS: ASCORBIC ACID 500 MG TABLET PO SCH (08:06)
[2020-03-11] MEDS: FUROSEMIDE 40 MG/4 ML VIAL IV SCH (08:07)
[2020-03-11] MEDS: FLUTICASONE 50 MCG NASAL SPRAY 16 GM BOTTLE BOTH NARES SCH ×2 (08:09→20:11)
[2020-03-11] MEDS: FAMOTIDINE 20 MG/2 ML VIAL IV SCH ×2 (08:09→20:11)
[2020-03-11] MEDS: APIXABAN 5 MG TABLET NG SCH ×2 (10:36→20:11)
[2020-03-11] MEDS: DEXTROSE 5% 1,000 ML IV SCH (12:29)
[2020-03-11] MEDS: FLUCONAZOLE INJ 400 MG in PREMIX 1 EACH IV SCH (14:35)
[2020-03-11] MEDS ORDERED: ATROPINE 1 MG/10 ML SYRINGE IV ONE ×2 (21:34→21:46)
[2020-03-11] MEDS ORDERED: EPINEPHrine 1 MG/10 ML SYRINGE IV ONE (21:47)
[2020-03-11] MEDS ORDERED: SODIUM BICARBONATE 50 MEQ/50 ML VIAL IV ONE (21:52)
[2020-03-12] MEDS: INSULIN REGULAR 100 UNIT/ML SUBCUT SCH ×4 (00:31→18:21)
[2020-03-12] MEDS: methylPREDNISolone SOD SUC 40 MG/1 ML VIAL IV SCH ×4 (00:32→21:43)
[2020-03-12] MEDS: ALBUTEROL INHALER 18 GM INH SCH ×4 (01:42→18:29)
[2020-03-12] MEDS: DEXTROSE 5% 1,000 ML IV SCH ×4 (03:20→18:30)
[2020-03-12 05:28] LABS: ABG Base Excess 4.3 MMOL/L (-2.5-2.5); ABG HCO3 28.3 MMOL/L (20-26); ABG Oxygen Saturation 98.6 % (95-100); ABG PH 7.443 (7.35-7.45)
[2020-03-12 06:02] LABS: Basophils % 0.1 % (0.0-0.8); Eosinophils % 0.1 % (0.00-10.9); Hematocrit 21.9 VOL% (35.7-47.0); Hemoglobin 7.2 GM/DL (12.0-16.0); Immature Granulocytes % 4.7 %; Immature Granulocytes Absolute 0.38 #; Lymphocytes # 0.2 10*3/uL (1.4-4.0); Mean Corpuscular HGB Conc 32.9 GM/DL (32-36); Mean Platelet Volume 12.2 FL (9.6-12.0); Monocytes % 1.8 % (1.7-12.7); Neutrophils % 91.3 % (38.7-73.9); Platelet Count 116 T/CUMM (130-400); Red Blood Count 2.38 MC/CUMM (3.8-5.5); Red Cell Distribution Width 17.7 % (9.3-17.3); White Blood Count 8.2 T/CUMM (4-12)
[2020-03-12 06:26] LABS: Calcium 7.9 MG/DL (8.5-10.1); Osmolality,Calculated 289.4 MOS/KG (273-304)
[2020-03-12 06:27] LABS: Band Neutrophils 1 % (0-10); Ferritin 1031.6 ng/ml (8-252); Lymphocytes 6 % (20-55); Segmented Neutrophils 93 % (50-85); Total Cells Counted 100
[2020-03-12 06:28] LABS: Hypochromasia 2+; Microcytosis 1+; Platelet Estimate Decreased
[2020-03-12] MEDS: LEVOTHYROXINE 137 MCG TABLET PO SCH (06:59)
[2020-03-12] MEDS: CETIRIZINE 10 MG TABLET PO SCH (08:00)
[2020-03-12] MEDS: ASCORBIC ACID 500 MG TABLET PO SCH (08:00)
[2020-03-12] MEDS: CHOLECALCIFEROL 1,000 UNIT TABLET PO SCH (08:00)
[2020-03-12] MEDS: FAMOTIDINE 20 MG/2 ML VIAL IV SCH ×2 (08:00→21:43)
[2020-03-12] MEDS: FLUoxetine 20 MG CAPSULE PO SCH (08:00)
[2020-03-12] MEDS: APIXABAN 5 MG TABLET NG SCH ×2 (08:01→21:43)
[2020-03-12] MEDS: FUROSEMIDE 40 MG/4 ML VIAL IV SCH (08:04)
[2020-03-12] MEDS: FLUTICASONE 50 MCG NASAL SPRAY 16 GM BOTTLE BOTH NARES SCH ×2 (08:09→21:43)
[2020-03-12] MEDS: fentaNYL INJ 2,500 MCG in SODIUM CHLORIDE 0.9% 75 ML IV PRN ×2 (13:22→23:15)
[2020-03-13] MEDS: INSULIN REGULAR 100 UNIT/ML SUBCUT SCH ×4 (00:31→18:09)
[2020-03-13] MEDS: ALBUTEROL INHALER 18 GM INH SCH ×4 (00:34→18:10)
[2020-03-13 04:23] LABS: Basophils % 0.1 % (0.0-0.8); Eosinophils % 0.1 % (0.00-10.9); Hematocrit 26.1 VOL% (35.7-47.0); Hemoglobin 8.6 GM/DL (12.0-16.0); Immature Granulocytes % 3.9 %; Immature Granulocytes Absolute 0.37 #; Lymphocytes # 0.3 10*3/uL (1.4-4.0); Lymphocytes % 2.8 % (21.3-54.2); Mean Corpuscular Volume 89.1 FL (87-102); Monocytes % 2.7 % (1.7-12.7); Neutrophils % 90.4 % (38.7-73.9); Platelet Count 154 T/CUMM (130-400); Red Blood Count 2.93 MC/CUMM (3.8-5.5); Red Cell Distribution Width 17.1 % (9.3-17.3); White Blood Count 9.6 T/CUMM (4-12)
[2020-03-13 04:43] LABS: Band Neutrophils 1 % (0-10); Eosinophils 1 % (0-10); Hypochromasia 1+; Lymphocytes 3 % (20-55); Microcytosis 1+; Polychromasia Slight; Segmented Neutrophils 93 % (50-85); Total Cells Counted 100
[2020-03-13 04:44] LABS: Anisocytosis 1+; Platelet Estimate Adequate
[2020-03-13 04:57] LABS: Calcium 7.9 MG/DL (8.5-10.1); Osmolality,Calculated 287.5 MOS/KG (273-304)
[2020-03-13 05:04] LABS: Ferritin 937.6 ng/ml (8-252)
[2020-03-13 05:41] LABS: ABG Base Excess 6.4 MMOL/L (-2.5-2.5); ABG HCO3 30.2 MMOL/L (20-26); ABG Oxygen Saturation 96.8 % (95-100); ABG PCO2 41.5 MM HG (35-48); ABG PH 7.475 (7.35-7.45); ABG PO2 80.1 MM HG (80-95); ABG TCO2 28.1 MMOL/L (23-27)
[2020-03-13] MEDS: DEXTROSE 5% 1,000 ML IV SCH ×2 (05:42→16:44)
[2020-03-13] MEDS: LEVOTHYROXINE 137 MCG TABLET PO SCH (06:02)
[2020-03-13] MEDS: FAMOTIDINE 20 MG/2 ML VIAL IV SCH ×2 (08:20→20:25)
[2020-03-13] MEDS: APIXABAN 5 MG TABLET NG SCH ×2 (08:20→20:25)
[2020-03-13] MEDS: ASCORBIC ACID 500 MG TABLET PO SCH (08:20)
[2020-03-13] MEDS: CETIRIZINE 10 MG TABLET PO SCH (08:20)
[2020-03-13] MEDS: methylPREDNISolone SOD SUC 40 MG/1 ML VIAL IV SCH ×2 (08:20→20:24)
[2020-03-13] MEDS: FLUoxetine 20 MG CAPSULE PO SCH (08:20)
[2020-03-13] MEDS: CHOLECALCIFEROL 1,000 UNIT TABLET PO SCH (08:20)
[2020-03-13] MEDS: ZINC SULFATE 220 MG CAPSULE PO SCH (08:20)
[2020-03-13] MEDS: FUROSEMIDE 40 MG/4 ML VIAL IV SCH (08:21)
[2020-03-13] MEDS: FLUTICASONE 50 MCG NASAL SPRAY 16 GM BOTTLE BOTH NARES SCH ×2 (08:21→20:25)
[2020-03-13] MEDS: fentaNYL INJ 2,500 MCG in SODIUM CHLORIDE 0.9% 75 ML IV PRN (11:59)
[2020-03-13] MEDS: VANCOMYCIN INJ 1,500 MG in SODIUM CHLORIDE 0.9% 500 ML IV SCH (18:10)
[2020-03-14] MEDS: INSULIN REGULAR 100 UNIT/ML SUBCUT SCH ×5 (00:17→23:38)
[2020-03-14] MEDS: ALBUTEROL INHALER 18 GM INH SCH ×4 (01:05→18:07)
[2020-03-14] MEDS: fentaNYL INJ 2,500 MCG in SODIUM CHLORIDE 0.9% 75 ML IV PRN ×3 (01:25→23:44)
[2020-03-14] MEDS: DEXTROSE 5% 1,000 ML IV SCH (02:53)
[2020-03-14 04:50] LABS: Basophils % 0.3 % (0.0-0.8); Eosinophils # 0.1 10*3/uL (0.0-0.87); Eosinophils % 0.7 % (0.00-10.9); Hematocrit 30.7 VOL% (35.7-47.0); Hemoglobin 10.2 GM/DL (12.0-16.0); Immature Granulocytes % 2.3 %; Immature Granulocytes Absolute 0.25 #; Lymphocytes # 0.4 10*3/uL (1.4-4.0); Lymphocytes % 3.4 % (21.3-54.2); Mean Corpuscular HGB Conc 33.2 GM/DL (32-36); Mean Platelet Volume 10.9 FL (9.6-12.0); Monocytes % 1.9 % (1.7-12.7); Neutrophils % 91.4 % (38.7-73.9); Platelet Count 210 T/CUMM (130-400); Red Blood Count 3.41 MC/CUMM (3.8-5.5); Red Cell Distribution Width 17.2 % (9.3-17.3); White Blood Count 10.9 T/CUMM (4-12)
[2020-03-14 04:58] LABS: ABG Base Excess 7.2 MMOL/L (-2.5-2.5); ABG Oxygen Saturation 99.5 % (95-100); ABG PCO2 43.8 MM HG (35-48); ABG PH 7.467 (7.35-7.45); ABG TCO2 28.8 MMOL/L (23-27); Allen Test Positive; Pt O2 Delivery Device Ventilator
[2020-03-14 05:01] LABS: Calcium 8.4 MG/DL (8.5-10.1); Osmolality,Calculated 283.7 MOS/KG (273-304)
[2020-03-14 05:12] LABS: Eosinophils 4 % (0-10); Hypochromasia 1+; Lymphocytes 3 % (20-55); Microcytosis 1+; Platelet Estimate Adequate; Segmented Neutrophils 91 % (50-85); Total Cells Counted 100
[2020-03-14 05:13] LABS: Ovalocytes Slight
[2020-03-14] MEDS: LEVOTHYROXINE 137 MCG TABLET PO SCH (06:57)
[2020-03-14] MEDS: FLUoxetine 20 MG CAPSULE PO SCH (08:27)
[2020-03-14] MEDS: CETIRIZINE 10 MG TABLET PO SCH (08:27)
[2020-03-14] MEDS: ASCORBIC ACID 500 MG TABLET PO SCH (08:27)
[2020-03-14] MEDS: CHOLECALCIFEROL 1,000 UNIT TABLET PO SCH (08:28)
[2020-03-14] MEDS: FUROSEMIDE 40 MG/4 ML VIAL IV SCH (08:28)
[2020-03-14] MEDS: methylPREDNISolone SOD SUC 40 MG/1 ML VIAL IV SCH ×2 (08:28→20:25)
[2020-03-14] MEDS: APIXABAN 5 MG TABLET NG SCH (08:28)
[2020-03-14] MEDS: FAMOTIDINE 20 MG/2 ML VIAL IV SCH ×2 (08:28→20:25)
[2020-03-14] MEDS: FLUTICASONE 50 MCG NASAL SPRAY 16 GM BOTTLE BOTH NARES SCH ×2 (08:29→20:25)
[2020-03-14] MEDS: VANCOMYCIN INJ 1,500 MG in SODIUM CHLORIDE 0.9% 500 ML IV SCH (12:42)
[2020-03-14] MEDS ORDERED: dilTIAZem Drip 125 MG/125 ML PREMIX IV SCH (21:00)
[2020-03-14] MEDS ORDERED: DIGOXIN 0.5 MG/2 ML AMP IV ONE (23:52)
[2020-03-15] MEDS ORDERED: DIGOXIN 0.5 MG/2 ML AMP IV ONE ×2 (00:40→02:53)
[2020-03-15] MEDS ORDERED: LACTATED RINGERS 500 ML IV ONE ×2 (00:41→02:54)
[2020-03-15] MEDS ORDERED: AMIODARONE INJ 150 MG in DEXTROSE 5% 100 ML IV ONE (00:42)
[2020-03-15] MEDS: ALBUTEROL INHALER 18 GM INH SCH ×2 (01:19→07:17)
[2020-03-15 04:25] LABS: Basophils % 0.1 % (0.0-0.8); Eosinophils % 0.3 % (0.00-10.9); Hematocrit 28.4 VOL% (35.7-47.0); Hemoglobin 9.2 GM/DL (12.0-16.0); Immature Granulocytes % 4.2 %; Lymphocytes # 0.2 10*3/uL (1.4-4.0); Lymphocytes % 1.6 % (21.3-54.2); Mean Corpuscular HGB Conc 32.4 GM/DL (32-36); Mean Corpuscular Volume 91.6 FL (87-102); Mean Platelet Volume 10.4 FL (9.6-12.0); Monocytes % 2.2 % (1.7-12.7); Neutrophils % 91.6 % (38.7-73.9); Platelet Count 178 T/CUMM (130-400); Red Cell Distribution Width 16.6 % (9.3-17.3); White Blood Count 9.4 T/CUMM (4-12)
[2020-03-15 04:45] LABS: Allen Test Positive; Pt O2 Delivery Device Ventilator
[2020-03-15 04:46] LABS: Band Neutrophils 1 % (0-10); Eosinophils 1 % (0-10); Hypochromasia Slight; Lymphocytes 3 % (20-55); Platelet Estimate Normal; Segmented Neutrophils 95 % (50-85); Total Cells Counted 100
[2020-03-15 04:46] LABS: ABG Base Excess 0.4 MMOL/L (-2.5-2.5); ABG HCO3 25.6 MMOL/L (20-26); ABG Oxygen Saturation 97.7 % (95-100); ABG PCO2 43.7 MM HG (35-48); ABG PH 7.386 (7.35-7.45)
[2020-03-15 04:53] LABS: Osmolality,Calculated 277.7 MOS/KG (273-304)
[2020-03-15 04:59] LABS: Ferritin 847.4 ng/ml (8-252)
[2020-03-15] MEDS: INSULIN REGULAR 100 UNIT/ML SUBCUT SCH ×3 (05:41→17:45)
[2020-03-15] MEDS: LEVOTHYROXINE 137 MCG TABLET PO SCH (05:47)
[2020-03-15] MEDS: VANCOMYCIN INJ 1,500 MG in SODIUM CHLORIDE 0.9% 500 ML IV SCH (05:48)
[2020-03-15] MEDS ORDERED: LEVALBUTEROL 1.25 MG/3 ML NEB RESP TX PRN (09:15)
[2020-03-15] MEDS: CHOLECALCIFEROL 1,000 UNIT TABLET PO SCH (09:46)
[2020-03-15] MEDS: FLUoxetine 20 MG CAPSULE PO SCH (09:46)
[2020-03-15] MEDS: FLUTICASONE 50 MCG NASAL SPRAY 16 GM BOTTLE BOTH NARES SCH ×2 (09:46→21:52)
[2020-03-15] MEDS: ZINC SULFATE 220 MG CAPSULE PO SCH (09:47)
[2020-03-15] MEDS: ASCORBIC ACID 500 MG TABLET PO SCH (09:47)
[2020-03-15] MEDS: FUROSEMIDE 40 MG/4 ML VIAL IV SCH (09:47)
[2020-03-15] MEDS: CETIRIZINE 10 MG TABLET PO SCH (09:47)
[2020-03-15] MEDS: FAMOTIDINE 20 MG/2 ML VIAL IV SCH ×2 (09:49→21:52)
[2020-03-15] MEDS: methylPREDNISolone SOD SUC 40 MG/1 ML VIAL IV SCH ×2 (09:51→21:52)
[2020-03-15] MEDS: fentaNYL INJ 2,500 MCG in SODIUM CHLORIDE 0.9% 75 ML IV PRN ×2 (13:28→21:05)
[2020-03-15] MEDS ORDERED: HEPARIN 10,000 UNIT/10 ML VIAL IV PRN (14:17)
[2020-03-15] MEDS: LEVALBUTEROL 1.25 MG/3 ML NEB RESP TX SCH ×2 (15:12→15:25)
[2020-03-16] MEDS: LEVALBUTEROL 1.25 MG/3 ML NEB RESP TX SCH ×3 (01:02→15:23)
[2020-03-16] MEDS: INSULIN REGULAR 100 UNIT/ML SUBCUT SCH ×4 (01:39→18:01)
[2020-03-16] MEDS: VANCOMYCIN INJ 1,500 MG in SODIUM CHLORIDE 0.9% 500 ML IV SCH ×2 (01:40→18:04)
[2020-03-16 02:56] LABS: ABG Base Excess 1.5 MMOL/L (-2.5-2.5); ABG HCO3 25.8 MMOL/L (20-26); ABG Oxygen Saturation 99.2 % (95-100); ABG PH 7.421 (7.35-7.45); ABG TCO2 24.1 MMOL/L (23-27); Allen Test Positive; Pt O2 Delivery Device Ventilator
[2020-03-16 04:30] LABS: Basophils % 0.3 % (0.0-0.8); Eosinophils % 0.1 % (0.00-10.9); Hematocrit 24.6 VOL% (35.7-47.0); Immature Granulocytes % 4.3 %; Immature Granulocytes Absolute 0.33 #; Lymphocytes # 0.2 10*3/uL (1.4-4.0); Lymphocytes % 2.1 % (21.3-54.2); Mean Corpuscular HGB Conc 32.5 GM/DL (32-36); Mean Corpuscular Volume 91.4 FL (87-102); Mean Platelet Volume 11.3 FL (9.6-12.0); Monocytes % 1.9 % (1.7-12.7); Neutrophils % 91.3 % (38.7-73.9); Platelet Count 187 T/CUMM (130-400); Red Blood Count 2.69 MC/CUMM (3.8-5.5); Red Cell Distribution Width 16.9 % (9.3-17.3); White Blood Count 7.8 T/CUMM (4-12)
[2020-03-16 04:40] LABS: Albumin 1.8 G/DL (3.4-5.0); Bilirubin,Total 0.8 MG/DL (0.2-1.0); Calcium 7.7 MG/DL (8.5-10.1); Osmolality,Calculated 283.5 MOS/KG (273-304); Total Protein 5.3 G/DL (6.4-8.3)
[2020-03-16 04:43] LABS: Hypochromasia 1+; Lymphocytes 3 % (20-55); Microcytosis 1+; Platelet Estimate Adequate; Segmented Neutrophils 97 % (50-85); Total Cells Counted 100
[2020-03-16] MEDS: fentaNYL INJ 2,500 MCG in SODIUM CHLORIDE 0.9% 75 ML IV PRN ×3 (04:50→21:11)
[2020-03-16] MEDS: LEVOTHYROXINE 137 MCG TABLET PO SCH (07:00)
[2020-03-16] MEDS: CHOLECALCIFEROL 1,000 UNIT TABLET PO SCH (09:38)
[2020-03-16] MEDS: ASCORBIC ACID 500 MG TABLET PO SCH (09:38)
[2020-03-16] MEDS: CETIRIZINE 10 MG TABLET PO SCH (09:39)
[2020-03-16] MEDS: methylPREDNISolone SOD SUC 40 MG/1 ML VIAL IV SCH ×2 (09:39→20:32)
[2020-03-16] MEDS: FLUoxetine 20 MG CAPSULE PO SCH (09:39)
[2020-03-16] MEDS: FAMOTIDINE 20 MG/2 ML VIAL IV SCH ×2 (09:42→20:32)
[2020-03-16] MEDS: FUROSEMIDE 40 MG/4 ML VIAL IV SCH (09:44)
[2020-03-16] MEDS: FLUTICASONE 50 MCG NASAL SPRAY 16 GM BOTTLE BOTH NARES SCH ×2 (09:47→20:33)
[2020-03-16] MEDS: ENOXAPARIN 60 MG/0.6 ML SYRINGE SUBCUT SCH (12:34)
[2020-03-16] MEDS ORDERED: DIGOXIN 0.5 MG/2 ML AMP IV ONE (17:30)
[2020-03-16] MEDS: DILTIAZEM 50 MG/10 ML VIAL IV PRN (19:45)
[2020-03-16] MEDS ORDERED: dilTIAZem Drip 125 MG/125 ML PREMIX IV SCH (21:30)
[2020-03-17] MEDS: ENOXAPARIN 60 MG/0.6 ML SYRINGE SUBCUT SCH ×2 (01:29→12:50)
[2020-03-17] MEDS: INSULIN REGULAR 100 UNIT/ML SUBCUT SCH ×5 (01:29→23:11)
[2020-03-17] MEDS: fentaNYL INJ 2,500 MCG in SODIUM CHLORIDE 0.9% 75 ML IV PRN ×3 (04:57→20:20)
[2020-03-17 05:07] LABS: ABG Base Excess 3.1 MMOL/L (-2.5-2.5); ABG HCO3 27.2 MMOL/L (20-26); ABG Oxygen Saturation 99.9 % (95-100); ABG PCO2 40.1 MM HG (35-48); ABG PH 7.442 (7.35-7.45); ABG TCO2 25.7 MMOL/L (23-27)
[2020-03-17 05:47] LABS: Basophils % 0.2 % (0.0-0.8); Eosinophils % 0.2 % (0.00-10.9); Hematocrit 23.2 VOL% (35.7-47.0); Hemoglobin 7.7 GM/DL (12.0-16.0); Immature Granulocytes % 5.1 %; Immature Granulocytes Absolute 0.46 #; Lymphocytes # 0.3 10*3/uL (1.4-4.0); Lymphocytes % 2.8 % (21.3-54.2); Mean Corpuscular HGB Conc 33.2 GM/DL (32-36); Monocytes % 3.5 % (1.7-12.7); Neutrophils % 88.2 % (38.7-73.9); Platelet Count 210 T/CUMM (130-400); Red Blood Count 2.55 MC/CUMM (3.8-5.5); Red Cell Distribution Width 17.1 % (9.3-17.3)
[2020-03-17 06:10] LABS: Albumin 1.9 G/DL (3.4-5.0); Bilirubin,Total 0.4 MG/DL (0.2-1.0); Calcium 7.7 MG/DL (8.5-10.1); Osmolality,Calculated 278.8 MOS/KG (273-304); Total Protein 5.6 G/DL (6.4-8.3)
[2020-03-17] MEDS: POTASSIUM CHLORIDE RIDER 20 MEQ in PREMIX 1 EACH IV PRN (06:30)
[2020-03-17] MEDS: LEVOTHYROXINE 150 MCG TABLET PO SCH (06:30)
[2020-03-17] MEDS: LEVALBUTEROL 1.25 MG/3 ML NEB RESP TX SCH ×4 (08:02→23:10)
[2020-03-17] MEDS ORDERED: MAGNESIUM SULF RIDER 4 GM in PREMIX 1 EACH IV PRN (08:14)
[2020-03-17] MEDS ORDERED: MAGNESIUM SULF RIDER 2 GM in PREMIX 1 EACH IV PRN (08:14)
[2020-03-17] MEDS ORDERED: POTASSIUM CHLORIDE RIDER 10 MEQ in PREMIX 1 EACH IV PRN (08:14)
[2020-03-17] MEDS ORDERED: POTASSIUM CHLORIDE RIDER 20 MEQ in PREMIX 1 EACH IV PRN (08:14)
[2020-03-17] MEDS ORDERED: SODIUM CHLORIDE 0.9% 1,000 ML IV PRN ×2 (08:15→08:46)
[2020-03-17] MEDS ORDERED: DILTIAZEM 50 MG/10 ML VIAL IV PRN (08:48)
[2020-03-17] MEDS: dilTIAZem Drip 125 MG/125 ML PREMIX IV SCH (08:54)
[2020-03-17] MEDS: POTASSIUM CHLORIDE RIDER 10 MEQ in PREMIX 1 EACH IV PRN (09:36)
[2020-03-17] MEDS: methylPREDNISolone SOD SUC 40 MG/1 ML VIAL IV SCH ×2 (09:38→20:57)
[2020-03-17] MEDS: FAMOTIDINE 20 MG/2 ML VIAL IV SCH ×2 (09:38→20:57)
[2020-03-17] MEDS: FUROSEMIDE 40 MG/4 ML VIAL IV SCH (09:38)
[2020-03-17] MEDS: ASCORBIC ACID 500 MG TABLET PO SCH (09:48)
[2020-03-17] MEDS: CETIRIZINE 10 MG TABLET PO SCH (09:48)
[2020-03-17] MEDS: ZINC SULFATE 220 MG CAPSULE PO SCH (09:48)
[2020-03-17] MEDS: CHOLECALCIFEROL 1,000 UNIT TABLET PO SCH (09:48)
[2020-03-17] MEDS: FLUoxetine 20 MG CAPSULE PO SCH (09:48)
[2020-03-17 10:45] LABS: Band Neutrophils 2 % (0-10); Lymphocytes 4 % (20-55); Segmented Neutrophils 91 % (50-85); Total Cells Counted 100
[2020-03-17 10:47] LABS: Hypochromasia 1+; Microcytosis 1+; Platelet Estimate Normal
[2020-03-17] MEDS: FLUTICASONE 50 MCG NASAL SPRAY 16 GM BOTTLE BOTH NARES SCH ×2 (10:51→21:10)
[2020-03-17] MEDS: VANCOMYCIN INJ 1,500 MG in SODIUM CHLORIDE 0.9% 500 ML IV SCH (12:53)
[2020-03-17 18:18] LABS: Hematocrit 28.7 VOL% (35.7-47.0); Hemoglobin 9.3 GM/DL (12.0-16.0)
[2020-03-18] MEDS: ENOXAPARIN 60 MG/0.6 ML SYRINGE SUBCUT SCH (01:35)
[2020-03-18] MEDS: fentaNYL INJ 2,500 MCG in SODIUM CHLORIDE 0.9% 75 ML IV PRN ×3 (02:30→19:29)
[2020-03-18 04:26] LABS: ABG Base Excess 1.4 MMOL/L (-2.5-2.5); ABG HCO3 25.7 MMOL/L (20-26); ABG PH 7.357 (7.35-7.45); ABG PO2 86.3 MM HG (80-95); ABG TCO2 25.1 MMOL/L (23-27); Allen Test Positive; Pt O2 Delivery Device Ventilator
[2020-03-18 05:46] LABS: Ferritin 625.8 ng/ml (8-252); Osmolality,Calculated 282.7 MOS/KG (273-304)
[2020-03-18] MEDS: INSULIN REGULAR 100 UNIT/ML SUBCUT SCH ×4 (05:52→23:46)
[2020-03-18 06:20] LABS: Basophils % 0.2 % (0.0-0.8); Hemoglobin 8.5 GM/DL (12.0-16.0); Immature Granulocytes % 4.1 %; Immature Granulocytes Absolute 0.41 #; Lymphocytes # 0.2 10*3/uL (1.4-4.0); Lymphocytes % 2.1 % (21.3-54.2); Mean Corpuscular HGB Conc 32.7 GM/DL (32-36); Mean Corpuscular Volume 92.2 FL (87-102); Mean Platelet Volume 10.6 FL (9.6-12.0); Monocytes % 4.8 % (1.7-12.7); Neutrophils % 88.8 % (38.7-73.9); Red Blood Count 2.82 MC/CUMM (3.8-5.5); Red Cell Distribution Width 16.4 % (9.3-17.3); White Blood Count 10.1 T/CUMM (4-12)
[2020-03-18 06:21] LABS: Platelet Count 254 T/CUMM (130-400)
[2020-03-18] MEDS: LEVOTHYROXINE 150 MCG TABLET PO SCH (06:38)
[2020-03-18] MEDS: POTASSIUM CHLORIDE RIDER 20 MEQ in PREMIX 1 EACH IV PRN ×2 (06:38→08:17)
[2020-03-18] MEDS: VANCOMYCIN INJ 1,500 MG in SODIUM CHLORIDE 0.9% 500 ML IV SCH (06:50)
[2020-03-18] MEDS: LEVALBUTEROL 1.25 MG/3 ML NEB RESP TX SCH ×3 (07:56→23:42)
[2020-03-18] MEDS: dilTIAZem Drip 125 MG/125 ML PREMIX IV SCH (08:20)
[2020-03-18 08:21] LABS: Anisocytosis 2+; Band Neutrophils 4 % (0-10); Eosinophils 2 % (0-10); Lymphocytes 5 % (20-55); Macrocytosis 1+; Metamyelocytes 2 %; Microcytosis 1+; Platelet Estimate Normal; Segmented Neutrophils 83 % (50-85); Total Cells Counted 100
[2020-03-18] MEDS: POLYETHYLENE GLYCOL POWDER 17 GM PACK PO SCH ×2 (09:29→21:37)
[2020-03-18] MEDS: FUROSEMIDE 40 MG/4 ML VIAL IV SCH (09:30)
[2020-03-18] MEDS: FAMOTIDINE 20 MG/2 ML VIAL IV SCH ×2 (09:30→21:38)
[2020-03-18] MEDS: CETIRIZINE 10 MG TABLET PO SCH (09:31)
[2020-03-18] MEDS: methylPREDNISolone SOD SUC 40 MG/1 ML VIAL IV SCH ×2 (09:31→21:38)
[2020-03-18] MEDS: ASCORBIC ACID 500 MG TABLET PO SCH (09:31)
[2020-03-18] MEDS: CHOLECALCIFEROL 1,000 UNIT TABLET PO SCH (09:31)
[2020-03-18] MEDS: FLUoxetine 20 MG CAPSULE PO SCH (09:31)
[2020-03-18] MEDS: FLUTICASONE 50 MCG NASAL SPRAY 16 GM BOTTLE BOTH NARES SCH ×2 (09:32→21:37)
[2020-03-18] MEDS: POTASSIUM CHLORIDE 20 MEQ/15 ML UDCUP PER TUBE PRN ×3 (13:00→17:28)
[2020-03-18] MEDS: ENOXAPARIN 120 MG/0.8 ML SYRINGE SUBCUT SCH (15:18)
[2020-03-18] MEDS: ACETAMINOPHEN 325 MG/10.15 ML UDCUP PO PRN (17:27)
[2020-03-19] MEDS: VANCOMYCIN INJ 1,500 MG in SODIUM CHLORIDE 0.9% 500 ML IV SCH ×2 (00:25→18:17)
[2020-03-19] MEDS: POTASSIUM CHLORIDE 20 MEQ/15 ML UDCUP PER TUBE PRN (00:25)
[2020-03-19 04:04] LABS: ABG Base Excess 2.4 MMOL/L (-2.5-2.5); ABG Oxygen Saturation 98.6 % (95-100); ABG PCO2 48.2 MM HG (35-48); ABG PH 7.382 (7.35-7.45); ABG TCO2 29.5 MMOL/L (23-27); Allen Test Positive; Pt O2 Delivery Device Ventilator
[2020-03-19 05:40] LABS: Basophils % 0.2 % (0.0-0.8); Hematocrit 26.6 VOL% (35.7-47.0); Hemoglobin 8.6 GM/DL (12.0-16.0); Immature Granulocytes % 4.5 %; Immature Granulocytes Absolute 0.41 #; Lymphocytes # 0.2 10*3/uL (1.4-4.0); Lymphocytes % 2.4 % (21.3-54.2); Mean Corpuscular HGB Conc 32.3 GM/DL (32-36); Mean Corpuscular Volume 93.7 FL (87-102); Mean Platelet Volume 10.2 FL (9.6-12.0); Monocytes % 5.4 % (1.7-12.7); Neutrophils % 87.5 % (38.7-73.9); Platelet Count 264 T/CUMM (130-400); Red Blood Count 2.84 MC/CUMM (3.8-5.5); Red Cell Distribution Width 17.2 % (9.3-17.3); White Blood Count 9.1 T/CUMM (4-12)
[2020-03-19 06:01] LABS: Albumin 1.9 G/DL (3.4-5.0); Bilirubin,Total 0.6 MG/DL (0.2-1.0); Calcium 8.1 MG/DL (8.5-10.1); Ferritin 621.7 ng/ml (8-252); Osmolality,Calculated 284.5 MOS/KG (273-304); Total Protein 5.7 G/DL (6.4-8.3)
[2020-03-19 06:16] LABS: Band Neutrophils 3 % (0-10); Hypochromasia Slight; Lymphocytes 1 % (20-55); Platelet Estimate Normal; Segmented Neutrophils 93 % (50-85); Total Cells Counted 100
[2020-03-19] MEDS: LEVOTHYROXINE 150 MCG TABLET PO SCH (06:39)
[2020-03-19] MEDS: INSULIN REGULAR 100 UNIT/ML SUBCUT SCH ×3 (06:39→18:08)
[2020-03-19] MEDS: dilTIAZem Drip 125 MG/125 ML PREMIX IV SCH (08:30)
[2020-03-19] MEDS: LEVALBUTEROL 1.25 MG/3 ML NEB RESP TX SCH ×3 (08:46→23:16)
[2020-03-19] MEDS: ENOXAPARIN 120 MG/0.8 ML SYRINGE SUBCUT SCH ×2 (08:54→21:45)
[2020-03-19] MEDS: ZINC SULFATE 220 MG CAPSULE PO SCH (08:54)
[2020-03-19] MEDS: CETIRIZINE 10 MG TABLET PO SCH (08:54)
[2020-03-19] MEDS: DOCUSATE SODIUM 100 MG/10 ML UDCUP PO SCH ×3 (08:54→20:23)
[2020-03-19] MEDS: POLYETHYLENE GLYCOL POWDER 17 GM PACK PO SCH ×2 (08:54→20:23)
[2020-03-19] MEDS: CHOLECALCIFEROL 1,000 UNIT TABLET PO SCH (08:54)
[2020-03-19] MEDS: FLUoxetine 20 MG CAPSULE PO SCH (08:54)
[2020-03-19] MEDS: methylPREDNISolone SOD SUC 40 MG/1 ML VIAL IV SCH ×2 (08:55→20:23)
[2020-03-19] MEDS: ASCORBIC ACID 500 MG TABLET PO SCH (08:55)
[2020-03-19] MEDS: FAMOTIDINE 20 MG/2 ML VIAL IV SCH ×2 (08:55→20:24)
[2020-03-19] MEDS: FUROSEMIDE 40 MG/4 ML VIAL IV SCH (08:55)
[2020-03-19] MEDS: FLUTICASONE 50 MCG NASAL SPRAY 16 GM BOTTLE BOTH NARES SCH ×2 (08:57→20:24)
[2020-03-19] MEDS: NEOMYCIN/POLYMYXIN/BACITRACIN OINT 28.4 GM TUBE TOP SCH ×3 (10:31→20:23)
[2020-03-19] MEDS: fentaNYL INJ 2,500 MCG in SODIUM CHLORIDE 0.9% 75 ML IV PRN ×2 (10:45→18:54)
[2020-03-19] MEDS: diphenhydrAMINE 50 MG/1 ML VIAL IV SCH ×2 (11:20→18:09)
[2020-03-19] MEDS ORDERED: diphenhydrAMINE 50 MG/1 ML VIAL IV PRN (18:09)
[2020-03-20] MEDS: INSULIN REGULAR 100 UNIT/ML SUBCUT SCH ×4 (01:07→18:10)
[2020-03-20 04:19] LABS: ABG Base Excess 5.6 MMOL/L (-2.5-2.5); ABG HCO3 29.5 MMOL/L (20-26); ABG Oxygen Saturation 96.7 % (95-100); ABG PCO2 44.1 MM HG (35-48); ABG PH 7.445 (7.35-7.45); ABG PO2 78.8 MM HG (80-95); ABG TCO2 27.9 MMOL/L (23-27); Allen Test Positive; Pt O2 Delivery Device Ventilator
[2020-03-20 05:24] LABS: Basophils % 0.2 % (0.0-0.8); Eosinophils % 0.5 % (0.00-10.9); Hematocrit 26.5 VOL% (35.7-47.0); Hemoglobin 8.7 GM/DL (12.0-16.0); Immature Granulocytes % 3.2 %; Immature Granulocytes Absolute 0.27 #; Lymphocytes # 0.3 10*3/uL (1.4-4.0); Lymphocytes % 3.2 % (21.3-54.2); Mean Corpuscular HGB Conc 32.8 GM/DL (32-36); Mean Corpuscular Volume 92.7 FL (87-102); Mean Platelet Volume 9.7 FL (9.6-12.0); Monocytes % 4.3 % (1.7-12.7); Neutrophils % 88.6 % (38.7-73.9); Platelet Count 256 T/CUMM (130-400); Red Blood Count 2.86 MC/CUMM (3.8-5.5); Red Cell Distribution Width 17.3 % (9.3-17.3); White Blood Count 8.4 T/CUMM (4-12)
[2020-03-20 05:51] LABS: Calcium 8.3 MG/DL (8.5-10.1); Osmolality,Calculated 284.3 MOS/KG (273-304)
[2020-03-20] MEDS: POTASSIUM CHLORIDE 20 MEQ/15 ML UDCUP PER TUBE PRN ×3 (06:20→13:10)
[2020-03-20] MEDS: LEVOTHYROXINE 150 MCG TABLET PO SCH (06:20)
[2020-03-20 07:12] LABS: Anisocytosis Slight; Hypochromasia 2+; Lymphocytes 6 % (20-55); Macrocytosis Slight; Metamyelocytes 1 %; Platelet Estimate Normal; Segmented Neutrophils 89 % (50-85); Total Cells Counted 100
[2020-03-20] MEDS: LEVALBUTEROL 1.25 MG/3 ML NEB RESP TX SCH ×2 (07:51→15:50)
[2020-03-20] MEDS: dilTIAZem Drip 125 MG/125 ML PREMIX IV SCH (08:49)
[2020-03-20] MEDS: ENOXAPARIN 120 MG/0.8 ML SYRINGE SUBCUT SCH (09:26)
[2020-03-20] MEDS: FLUoxetine 20 MG CAPSULE PO SCH (09:26)
[2020-03-20] MEDS: POLYETHYLENE GLYCOL POWDER 17 GM PACK PO SCH ×2 (09:26→21:18)
[2020-03-20] MEDS: FAMOTIDINE 20 MG/2 ML VIAL IV SCH ×2 (09:27→21:18)
[2020-03-20] MEDS: FUROSEMIDE 40 MG/4 ML VIAL IV SCH (09:27)
[2020-03-20] MEDS: DOCUSATE SODIUM 100 MG/10 ML UDCUP PO SCH ×3 (09:27→21:18)
[2020-03-20] MEDS: CHOLECALCIFEROL 1,000 UNIT TABLET PO SCH (09:27)
[2020-03-20] MEDS: CETIRIZINE 10 MG TABLET PO SCH (09:27)
[2020-03-20] MEDS: ASCORBIC ACID 500 MG TABLET PO SCH (09:27)
[2020-03-20] MEDS: FLUTICASONE 50 MCG NASAL SPRAY 16 GM BOTTLE BOTH NARES SCH ×2 (09:28→21:18)
[2020-03-20] MEDS: methylPREDNISolone SOD SUC 40 MG/1 ML VIAL IV SCH ×2 (09:28→21:18)
[2020-03-20] MEDS: NEOMYCIN/POLYMYXIN/BACITRACIN OINT 28.4 GM TUBE TOP SCH ×3 (09:28→21:18)
[2020-03-20] MEDS: fentaNYL INJ 2,500 MCG in SODIUM CHLORIDE 0.9% 75 ML IV PRN ×2 (14:10→20:26)
[2020-03-21] MEDS: INSULIN REGULAR 100 UNIT/ML SUBCUT SCH ×5 (00:02→23:51)
[2020-03-21] MEDS: LEVALBUTEROL 1.25 MG/3 ML NEB RESP TX SCH ×4 (00:02→23:25)
[2020-03-21] MEDS: DILTIAZEM 50 MG/10 ML VIAL IV PRN (03:02)
[2020-03-21] MEDS: dilTIAZem Drip 125 MG/125 ML PREMIX IV SCH ×3 (03:13→19:48)
[2020-03-21 03:48] LABS: ABG Base Excess 5.1 MMOL/L (-2.5-2.5); ABG HCO3 30.4 MMOL/L (20-26); ABG Oxygen Saturation 92.7 % (95-100); ABG PCO2 48.4 MM HG (35-48); ABG PH 7.416 (7.35-7.45); ABG PO2 66.2 MM HG (80-95); ABG TCO2 31.9 MMOL/L (23-27)
[2020-03-21] MEDS ORDERED: DIGOXIN 0.5 MG/2 ML AMP IV ONE (04:22)
[2020-03-21] MEDS: fentaNYL INJ 2,500 MCG in SODIUM CHLORIDE 0.9% 75 ML IV PRN ×3 (04:42→19:41)
[2020-03-21 05:07] LABS: Basophils # 0.1 10*3/uL (0.0-0.2); Basophils % 0.4 % (0.0-0.8); Eosinophils % 0.2 % (0.00-10.9); Hematocrit 32.4 VOL% (35.7-47.0); Hemoglobin 10.3 GM/DL (12.0-16.0); Immature Granulocytes % 4.4 %; Immature Granulocytes Absolute 0.63 #; Lymphocytes # 0.3 10*3/uL (1.4-4.0); Lymphocytes % 1.9 % (21.3-54.2); Mean Corpuscular HGB Conc 31.8 GM/DL (32-36); Mean Corpuscular Volume 94.7 FL (87-102); Mean Platelet Volume 9.4 FL (9.6-12.0); Monocytes % 2.7 % (1.7-12.7); Neutrophils % 90.4 % (38.7-73.9); Platelet Count 331 T/CUMM (130-400); Red Blood Count 3.42 MC/CUMM (3.8-5.5); Red Cell Distribution Width 17.5 % (9.3-17.3); White Blood Count 14.4 T/CUMM (4-12)
[2020-03-21 05:15] LABS: PT Patient Result 10.9 SECS (9.8-11.9)
[2020-03-21 05:28] LABS: Calcium 8.7 MG/DL (8.5-10.1); Osmolality,Calculated 282.4 MOS/KG (273-304)
[2020-03-21] MEDS: LEVOTHYROXINE 150 MCG TABLET PO SCH (06:23)
[2020-03-21 07:15] LABS: Anisocytosis 2+; Band Neutrophils 15 % (0-10); Lymphocytes 3 % (20-55); Macrocytosis 1+; Platelet Estimate Normal; Segmented Neutrophils 78 % (50-85); Total Cells Counted 100
[2020-03-21] MEDS ORDERED: ceFAZolin 1,000 MG in SYRINGE 1 EACH IV ONE (08:00)
[2020-03-21] MEDS: FAMOTIDINE 20 MG/2 ML VIAL IV SCH ×2 (09:44→21:25)
[2020-03-21] MEDS: DOCUSATE SODIUM 100 MG/10 ML UDCUP PO SCH ×3 (09:44→21:33)
[2020-03-21] MEDS: FLUTICASONE 50 MCG NASAL SPRAY 16 GM BOTTLE BOTH NARES SCH ×2 (09:44→21:25)
[2020-03-21] MEDS: ZINC SULFATE 220 MG CAPSULE PO SCH (09:45)
[2020-03-21] MEDS: ASCORBIC ACID 500 MG TABLET PO SCH (09:45)
[2020-03-21] MEDS: FUROSEMIDE 40 MG/4 ML VIAL IV SCH (09:45)
[2020-03-21] MEDS: methylPREDNISolone SOD SUC 40 MG/1 ML VIAL IV SCH ×2 (09:45→21:27)
[2020-03-21] MEDS: CETIRIZINE 10 MG TABLET PO SCH (09:45)
[2020-03-21] MEDS: CHOLECALCIFEROL 1,000 UNIT TABLET PO SCH (09:46)
[2020-03-21] MEDS: POLYETHYLENE GLYCOL POWDER 17 GM PACK PO SCH ×2 (09:46→21:34)
[2020-03-21] MEDS: NEOMYCIN/POLYMYXIN/BACITRACIN OINT 28.4 GM TUBE TOP SCH ×3 (09:46→21:25)
[2020-03-21] MEDS: FLUoxetine 20 MG CAPSULE PO SCH (09:46)
[2020-03-21] MEDS: POTASSIUM CHLORIDE RIDER 20 MEQ in PREMIX 1 EACH IV PRN (09:49)
[2020-03-21 10:31] LABS: Basophils # 0.1 10*3/uL (0.0-0.2); Basophils % 0.6 % (0.0-0.8); Eosinophils # 0.2 10*3/uL (0.0-0.87); Eosinophils % 1.6 % (0.00-10.9); Hematocrit 32.3 VOL% (35.7-47.0); Hemoglobin 10.5 GM/DL (12.0-16.0); Immature Granulocytes % 6.5 %; Immature Granulocytes Absolute 0.82 #; Lymphocytes # 0.6 10*3/uL (1.4-4.0); Lymphocytes % 4.5 % (21.3-54.2); Mean Corpuscular HGB Conc 32.5 GM/DL (32-36); Mean Corpuscular Volume 92.8 FL (87-102); Mean Platelet Volume 9.3 FL (9.6-12.0); Monocytes % 3.2 % (1.7-12.7); Neutrophils % 83.6 % (38.7-73.9); Platelet Count 305 T/CUMM (130-400); Red Blood Count 3.48 MC/CUMM (3.8-5.5); Red Cell Distribution Width 17.5 % (9.3-17.3); White Blood Count 12.6 T/CUMM (4-12)
[2020-03-21 10:59] LABS: Band Neutrophils 15 % (0-10); Eosinophils 1 % (0-10); Lymphocytes 5 % (20-55); Platelet Estimate Normal; Segmented Neutrophils 78 % (50-85); Total Cells Counted 100
[2020-03-21 11:00] LABS: Anisocytosis 1+; Macrocytosis 1+
[2020-03-21] MEDS: LACTATED RINGERS 1,000 ML IV SCH (11:53)
[2020-03-21] MEDS: POTASSIUM CHLORIDE RIDER 10 MEQ in PREMIX 1 EACH IV PRN (12:15)
[2020-03-21] MEDS: MEROPENEM 500 MG in SODIUM CHLORIDE 0.9% 100 ML IV SCH ×3 (12:27→21:25)
[2020-03-21 12:39] LABS: ABG Base Excess 5.9 MMOL/L (-2.5-2.5); ABG HCO3 29.7 MMOL/L (20-26); ABG PCO2 46.9 MM HG (35-48); ABG PH 7.429 (7.35-7.45); ABG PO2 67.4 MM HG (80-95)
[2020-03-22 03:36] LABS: ABG Base Excess 6.1 MMOL/L (-2.5-2.5); ABG HCO3 32.1 MMOL/L (20-26); ABG Oxygen Saturation 97.7 % (95-100); ABG PCO2 54.7 MM HG (35-48); ABG PH 7.387 (7.35-7.45); ABG PO2 113.8 MM HG (80-95); ABG TCO2 33.8 MMOL/L (23-27); Allen Test Positive; Pt O2 Delivery Device Ventilator
[2020-03-22] MEDS: fentaNYL INJ 2,500 MCG in SODIUM CHLORIDE 0.9% 75 ML IV PRN ×3 (03:45→22:30)
[2020-03-22] MEDS: MEROPENEM 500 MG in SODIUM CHLORIDE 0.9% 100 ML IV SCH ×4 (04:35→21:00)
[2020-03-22] MEDS: LEVOTHYROXINE 150 MCG TABLET PO SCH (05:37)
[2020-03-22 06:11] LABS: Basophils # 0.1 10*3/uL (0.0-0.2); Basophils % 0.6 % (0.0-0.8); Hematocrit 29.1 VOL% (35.7-47.0); Hemoglobin 9.3 GM/DL (12.0-16.0); Immature Granulocytes % 6.6 %; Immature Granulocytes Absolute 0.87 #; Lymphocytes # 0.2 10*3/uL (1.4-4.0); Lymphocytes % 1.8 % (21.3-54.2); Mean Corpuscular Volume 95.1 FL (87-102); Mean Platelet Volume 10.4 FL (9.6-12.0); Monocytes % 2.1 % (1.7-12.7); Neutrophils % 88.9 % (38.7-73.9); Platelet Count 273 T/CUMM (130-400); Red Blood Count 3.06 MC/CUMM (3.8-5.5); Red Cell Distribution Width 16.9 % (9.3-17.3); White Blood Count 13.1 T/CUMM (4-12)
[2020-03-22 06:31] LABS: Calcium 8.4 MG/DL (8.5-10.1); Osmolality,Calculated 284.3 MOS/KG (273-304)
[2020-03-22] MEDS: INSULIN REGULAR 100 UNIT/ML SUBCUT SCH ×3 (06:46→18:48)
[2020-03-22] MEDS: LEVALBUTEROL 1.25 MG/3 ML NEB RESP TX SCH ×3 (07:00→23:09)
[2020-03-22 08:41] LABS: Metamyelocytes 5 %; Platelet Estimate Normal; Polychromasia Slight; Segmented Neutrophils 90 % (50-85); Total Cells Counted 100
[2020-03-22] MEDS: FUROSEMIDE 40 MG/4 ML VIAL IV SCH (09:54)
[2020-03-22] MEDS: FAMOTIDINE 20 MG/2 ML VIAL IV SCH ×2 (09:55→20:49)
[2020-03-22] MEDS: methylPREDNISolone SOD SUC 40 MG/1 ML VIAL IV SCH ×2 (09:55→20:49)
[2020-03-22] MEDS: LACTATED RINGERS 1,000 ML IV SCH (11:52)
[2020-03-22] MEDS: DOCUSATE SODIUM 100 MG/10 ML UDCUP PO SCH ×3 (11:55→20:49)
[2020-03-22] MEDS: FLUoxetine 20 MG CAPSULE PO SCH (11:55)
[2020-03-22] MEDS: ASCORBIC ACID 500 MG TABLET PO SCH (11:55)
[2020-03-22] MEDS: POLYETHYLENE GLYCOL POWDER 17 GM PACK PO SCH ×2 (11:55→20:49)
[2020-03-22] MEDS: CHOLECALCIFEROL 1,000 UNIT TABLET PO SCH (11:55)
[2020-03-22] MEDS: CETIRIZINE 10 MG TABLET PO SCH (11:56)
[2020-03-22] MEDS: FLUTICASONE 50 MCG NASAL SPRAY 16 GM BOTTLE BOTH NARES SCH ×2 (13:49→20:49)
[2020-03-22] MEDS: NEOMYCIN/POLYMYXIN/BACITRACIN OINT 28.4 GM TUBE TOP SCH ×3 (13:50→20:49)
[2020-03-22] MEDS: dilTIAZem Drip 125 MG/125 ML PREMIX IV SCH ×2 (19:50→20:50)
[2020-03-23] MEDS: INSULIN REGULAR 100 UNIT/ML SUBCUT SCH ×5 (00:02→23:47)
[2020-03-23 04:55] LABS: ABG Base Excess 8.8 MMOL/L (-2.5-2.5); ABG Oxygen Saturation 97.5 % (95-100); ABG PCO2 57.5 MM HG (35-48); ABG PH 7.402 (7.35-7.45); ABG PO2 103.8 MM HG (80-95); ABG TCO2 36.7 MMOL/L (23-27)
[2020-03-23] MEDS: MEROPENEM 500 MG in SODIUM CHLORIDE 0.9% 100 ML IV SCH ×3 (05:09→17:58)
[2020-03-23 05:31] LABS: Basophils # 0.1 10*3/uL (0.0-0.2); Basophils % 0.6 % (0.0-0.8); Hematocrit 27.4 VOL% (35.7-47.0); Hemoglobin 8.9 GM/DL (12.0-16.0); Immature Granulocytes % 7.6 %; Immature Granulocytes Absolute 1.22 #; Lymphocytes # 0.3 10*3/uL (1.4-4.0); Lymphocytes % 1.7 % (21.3-54.2); Mean Corpuscular HGB Conc 32.5 GM/DL (32-36); Mean Corpuscular Volume 94.5 FL (87-102); Mean Platelet Volume 9.6 FL (9.6-12.0); Monocytes % 2.3 % (1.7-12.7); Neutrophils % 87.8 % (38.7-73.9); Platelet Count 236 T/CUMM (130-400); Red Cell Distribution Width 16.6 % (9.3-17.3); White Blood Count 16.1 T/CUMM (4-12)
[2020-03-23 05:58] LABS: Calcium 8.4 MG/DL (8.5-10.1); Osmolality,Calculated 284.4 MOS/KG (273-304)
[2020-03-23 06:11] LABS: Band Neutrophils 1 % (0-10); Hypochromasia 1+; Lymphocytes 3 % (20-55); Metamyelocytes 2 %; Segmented Neutrophils 92 % (50-85); Total Cells Counted 100
[2020-03-23 06:12] LABS: Anisocytosis 1+; Macrocytosis 1+; Platelet Estimate Normal
[2020-03-23] MEDS: LEVOTHYROXINE 150 MCG TABLET PO SCH (06:19)
[2020-03-23] MEDS: LACTATED RINGERS 1,000 ML IV SCH (08:00)
[2020-03-23] MEDS: fentaNYL INJ 2,500 MCG in SODIUM CHLORIDE 0.9% 75 ML IV PRN ×2 (08:12→16:40)
[2020-03-23] MEDS: POLYETHYLENE GLYCOL POWDER 17 GM PACK PO SCH ×2 (09:46→21:21)
[2020-03-23] MEDS: methylPREDNISolone SOD SUC 40 MG/1 ML VIAL IV SCH ×3 (09:46→21:21)
[2020-03-23] MEDS: FUROSEMIDE 40 MG/4 ML VIAL IV SCH (09:46)
[2020-03-23] MEDS: FAMOTIDINE 20 MG/2 ML VIAL IV SCH ×2 (09:46→21:21)
[2020-03-23] MEDS: ASCORBIC ACID 500 MG TABLET PO SCH (09:47)
[2020-03-23] MEDS: POTASSIUM CHLORIDE 20 MEQ/15 ML UDCUP PER TUBE PRN ×3 (09:47→15:00)
[2020-03-23] MEDS: FLUoxetine 20 MG CAPSULE PO SCH (09:47)
[2020-03-23] MEDS: ZINC SULFATE 220 MG CAPSULE PO SCH (09:47)
[2020-03-23] MEDS: CETIRIZINE 10 MG TABLET PO SCH (09:47)
[2020-03-23] MEDS: DOCUSATE SODIUM 100 MG/10 ML UDCUP PO SCH ×3 (09:47→21:21)
[2020-03-23] MEDS: CHOLECALCIFEROL 1,000 UNIT TABLET PO SCH (09:47)
[2020-03-23] MEDS: NEOMYCIN/POLYMYXIN/BACITRACIN OINT 28.4 GM TUBE TOP SCH ×3 (09:48→21:21)
[2020-03-23] MEDS: dilTIAZem Drip 125 MG/125 ML PREMIX IV SCH ×2 (09:48→22:18)
[2020-03-23] MEDS: FLUTICASONE 50 MCG NASAL SPRAY 16 GM BOTTLE BOTH NARES SCH ×2 (09:49→21:21)
[2020-03-23] MEDS ORDERED: DEXMEDETOMIDINE 200 MCG in SODIUM CHLORIDE 0.9% 48 ML IV PRN (09:50)
[2020-03-23] MEDS: LEVALBUTEROL 1.25 MG/3 ML NEB RESP TX SCH ×2 (10:14→14:44)
[2020-03-23] MEDS: DEXMEDETOMIDINE 400 MCG in SODIUM CHLORIDE 0.9% 96 ML IV PRN ×2 (12:33→22:15)
[2020-03-24] MEDS: fentaNYL INJ 2,500 MCG in SODIUM CHLORIDE 0.9% 75 ML IV PRN ×3 (00:27→17:00)
[2020-03-24] MEDS: MEROPENEM 500 MG in SODIUM CHLORIDE 0.9% 100 ML IV SCH ×4 (00:52→20:20)
[2020-03-24] MEDS: POTASSIUM CHLORIDE RIDER 20 MEQ in PREMIX 1 EACH IV PRN (00:55)
[2020-03-24] MEDS: LEVALBUTEROL 1.25 MG/3 ML NEB RESP TX SCH ×4 (01:15→23:31)
[2020-03-24 03:58] LABS: ABG Base Excess 9.5 MMOL/L (-2.5-2.5); ABG HCO3 33.2 MMOL/L (20-26); ABG PCO2 51.6 MM HG (35-48); ABG PH 7.441 (7.35-7.45); ABG PO2 67.4 MM HG (80-95); ABG TCO2 32.3 MMOL/L (23-27); Allen Test Positive; Pt O2 Delivery Device Ventilator
[2020-03-24] MEDS: DEXMEDETOMIDINE 400 MCG in SODIUM CHLORIDE 0.9% 96 ML IV PRN ×3 (03:59→21:32)
[2020-03-24 04:42] LABS: Basophils # 0.1 10*3/uL (0.0-0.2); Basophils % 0.6 % (0.0-0.8); Eosinophils # 0.2 10*3/uL (0.0-0.87); Hematocrit 27.3 VOL% (35.7-47.0); Hemoglobin 8.8 GM/DL (12.0-16.0); Immature Granulocytes % 11.8 %; Immature Granulocytes Absolute 1.76 #; Lymphocytes # 0.7 10*3/uL (1.4-4.0); Lymphocytes % 4.6 % (21.3-54.2); Mean Corpuscular HGB Conc 32.2 GM/DL (32-36); Mean Corpuscular Volume 94.1 FL (87-102); Mean Platelet Volume 9.5 FL (9.6-12.0); Monocytes % 3.5 % (1.7-12.7); Neutrophils % 78.5 % (38.7-73.9); Platelet Count 241 T/CUMM (130-400); Red Cell Distribution Width 16.9 % (9.3-17.3); White Blood Count 14.9 T/CUMM (4-12)
[2020-03-24 04:55] LABS: Calcium 8.3 MG/DL (8.5-10.1); Osmolality,Calculated 280.5 MOS/KG (273-304)
[2020-03-24 05:03] LABS: Band Neutrophils 1 % (0-10); Hypochromasia Slight; Lymphocytes 7 % (20-55); Platelet Estimate Normal; Segmented Neutrophils 90 % (50-85); Total Cells Counted 100
[2020-03-24] MEDS: INSULIN REGULAR 100 UNIT/ML SUBCUT SCH ×3 (06:12→18:20)
[2020-03-24] MEDS: LEVOTHYROXINE 150 MCG TABLET PO SCH (06:53)
[2020-03-24] MEDS: LACTATED RINGERS 1,000 ML IV SCH (07:07)
[2020-03-24] MEDS: dilTIAZem Drip 125 MG/125 ML PREMIX IV SCH (09:10)
[2020-03-24] MEDS: NEOMYCIN/POLYMYXIN/BACITRACIN OINT 28.4 GM TUBE TOP SCH ×3 (09:11→20:29)
[2020-03-24] MEDS: FLUoxetine 20 MG CAPSULE PO SCH (09:11)
[2020-03-24] MEDS: DOCUSATE SODIUM 100 MG/10 ML UDCUP PO SCH ×2 (09:11→16:31)
[2020-03-24] MEDS: FUROSEMIDE 40 MG/4 ML VIAL IV SCH ×3 (09:11→20:28)
[2020-03-24] MEDS: CETIRIZINE 10 MG TABLET PO SCH (09:11)
[2020-03-24] MEDS: FAMOTIDINE 20 MG/2 ML VIAL IV SCH (09:11)
[2020-03-24] MEDS: CHOLECALCIFEROL 1,000 UNIT TABLET PO SCH (09:11)
[2020-03-24] MEDS: FLUTICASONE 50 MCG NASAL SPRAY 16 GM BOTTLE BOTH NARES SCH ×2 (09:11→20:28)
[2020-03-24] MEDS: ASCORBIC ACID 500 MG TABLET PO SCH (09:11)
[2020-03-24] MEDS: POLYETHYLENE GLYCOL POWDER 17 GM PACK PO SCH (09:11)
[2020-03-24] MEDS: methylPREDNISolone SOD SUC 40 MG/1 ML VIAL IV SCH ×2 (09:12→21:33)
[2020-03-24] MEDS: POTASSIUM CHLORIDE 20 MEQ/15 ML UDCUP PER TUBE PRN (09:44)
[2020-03-24] MEDS: FAMOTIDINE 20 MG TABLET PER TUBE SCH (20:20)
[2020-03-25] MEDS: fentaNYL INJ 2,500 MCG in SODIUM CHLORIDE 0.9% 75 ML IV PRN ×3 (01:46→21:45)
[2020-03-25] MEDS: INSULIN REGULAR 100 UNIT/ML SUBCUT SCH ×4 (02:23→17:32)
[2020-03-25] MEDS: MEROPENEM 500 MG in SODIUM CHLORIDE 0.9% 100 ML IV SCH ×4 (02:25→22:00)
[2020-03-25] MEDS: DEXMEDETOMIDINE 400 MCG in SODIUM CHLORIDE 0.9% 96 ML IV PRN (05:51)
[2020-03-25] MEDS: LEVOTHYROXINE 150 MCG TABLET PO SCH (06:00)
[2020-03-25] MEDS: LEVALBUTEROL 1.25 MG/3 ML NEB RESP TX SCH ×3 (07:30→23:47)
[2020-03-25] MEDS: FLUTICASONE 50 MCG NASAL SPRAY 16 GM BOTTLE BOTH NARES SCH ×2 (08:42→22:08)
[2020-03-25] MEDS: FAMOTIDINE 20 MG TABLET PER TUBE SCH ×2 (08:43→22:07)
[2020-03-25] MEDS: FLUoxetine 20 MG CAPSULE PO SCH (08:43)
[2020-03-25] MEDS: ASCORBIC ACID 500 MG TABLET PO SCH (08:43)
[2020-03-25] MEDS: NEOMYCIN/POLYMYXIN/BACITRACIN OINT 28.4 GM TUBE TOP SCH ×3 (08:44→22:08)
[2020-03-25] MEDS: FUROSEMIDE 40 MG/4 ML VIAL IV SCH ×2 (08:44→21:52)
[2020-03-25] MEDS: CHOLECALCIFEROL 1,000 UNIT TABLET PO SCH (08:52)
[2020-03-25] MEDS: methylPREDNISolone SOD SUC 40 MG/1 ML VIAL IV SCH ×2 (09:28→22:07)
[2020-03-25] MEDS: ALBUMIN 25% 25 GM in PREMIX 1 EACH IV SCH (17:41)
[2020-03-25] MEDS: SPIRONOLACTONE 25 MG TABLET PO SCH (21:57)
[2020-03-26] MEDS ORDERED: DILTIAZEM 50 MG/10 ML VIAL IV ONE (00:39)
[2020-03-26] MEDS ORDERED: DILTIAZEM 25 MG/5 ML VIAL IV ONE ×2 (00:40→01:00)
[2020-03-26] MEDS: dilTIAZem Drip 125 MG/125 ML PREMIX IV SCH ×2 (01:08→08:52)
[2020-03-26] MEDS ORDERED: DIGOXIN 0.5 MG/2 ML AMP IV ONE (01:15)
[2020-03-26] MEDS: INSULIN REGULAR 100 UNIT/ML SUBCUT SCH ×4 (01:42→18:44)
[2020-03-26 01:51] LABS: Basophils # 0.2 10*3/uL (0.0-0.2); Basophils % 0.6 % (0.0-0.8); Eosinophils # 0.2 10*3/uL (0.0-0.87); Eosinophils % 0.5 % (0.00-10.9); Hematocrit 34.1 VOL% (35.7-47.0); Immature Granulocytes % 7.2 %; Immature Granulocytes Absolute 2.22 #; Lymphocytes # 0.6 10*3/uL (1.4-4.0); Lymphocytes % 1.8 % (21.3-54.2); Mean Corpuscular HGB Conc 32.3 GM/DL (32-36); Mean Corpuscular Volume 93.2 FL (87-102); Mean Platelet Volume 9.1 FL (9.6-12.0); Monocytes % 2.3 % (1.7-12.7); Neutrophils % 87.6 % (38.7-73.9); Platelet Count 311 T/CUMM (130-400); Red Blood Count 3.66 MC/CUMM (3.8-5.5); White Blood Count 30.9 T/CUMM (4-12)
[2020-03-26 02:13] LABS: Albumin 2.6 G/DL (3.4-5.0); Bilirubin,Total 0.9 MG/DL (0.2-1.0); Calcium 8.9 MG/DL (8.5-10.1); Osmolality,Calculated 285.5 MOS/KG (273-304)
[2020-03-26] MEDS ORDERED: POTASSIUM CHLORIDE 20 MEQ/15 ML UDCUP PER TUBE ONE (02:32)
[2020-03-26] MEDS: POTASSIUM CHLORIDE RIDER 20 MEQ in PREMIX 1 EACH IV PRN ×4 (02:35→18:40)
[2020-03-26] MEDS: MEROPENEM 500 MG in SODIUM CHLORIDE 0.9% 100 ML IV SCH ×5 (02:40→21:07)
[2020-03-26 02:47] LABS: Band Neutrophils 2 % (0-10); Lymphocytes 5 % (20-55); Metamyelocytes 1 %; Segmented Neutrophils 89 % (50-85); Total Cells Counted 100
[2020-03-26 02:48] LABS: Hypochromasia 1+; Platelet Estimate Normal
[2020-03-26] MEDS ORDERED: AMIODARONE INJ 150 MG in DEXTROSE 5% 100 ML IV ONE (03:18)
[2020-03-26] MEDS ORDERED: AMIODARONE INJ 450 MG in DEXTROSE 5% 241 ML IV SCH (03:30)
[2020-03-26] MEDS: ALBUMIN 25% 25 GM in PREMIX 1 EACH IV SCH ×2 (03:59→15:28)
[2020-03-26] MEDS: fentaNYL INJ 2,500 MCG in SODIUM CHLORIDE 0.9% 75 ML IV PRN ×2 (04:22→10:02)
[2020-03-26 04:44] LABS: ABG Base Excess 8.7 MMOL/L (-2.5-2.5); ABG HCO3 35.6 MMOL/L (20-26); ABG Oxygen Saturation 96.9 % (95-100); ABG PCO2 60.8 MM HG (35-48); ABG PH 7.385 (7.35-7.45); ABG PO2 96.6 MM HG (80-95); ABG TCO2 37.4 MMOL/L (23-27)
[2020-03-26] MEDS: LEVOTHYROXINE 150 MCG TABLET PO SCH (06:42)
[2020-03-26] MEDS: LEVALBUTEROL 1.25 MG/3 ML NEB RESP TX SCH ×2 (08:03→15:45)
[2020-03-26] MEDS: SPIRONOLACTONE 25 MG TABLET PO SCH ×2 (08:08→21:10)
[2020-03-26] MEDS: FLUoxetine 20 MG CAPSULE PO SCH (08:09)
[2020-03-26] MEDS: ASCORBIC ACID 500 MG TABLET PO SCH (08:09)
[2020-03-26] MEDS: FAMOTIDINE 20 MG TABLET PER TUBE SCH ×2 (08:09→21:10)
[2020-03-26] MEDS: NEOMYCIN/POLYMYXIN/BACITRACIN OINT 28.4 GM TUBE TOP SCH ×3 (08:10→21:13)
[2020-03-26] MEDS: CHOLECALCIFEROL 1,000 UNIT TABLET PO SCH (08:10)
[2020-03-26] MEDS: FLUTICASONE 50 MCG NASAL SPRAY 16 GM BOTTLE BOTH NARES SCH ×2 (08:10→21:10)
[2020-03-26] MEDS: FUROSEMIDE 40 MG/4 ML VIAL IV SCH (08:11)
[2020-03-26] MEDS: methylPREDNISolone SOD SUC 40 MG/1 ML VIAL IV SCH ×2 (10:03→21:10)
[2020-03-27] MEDS: LEVALBUTEROL 1.25 MG/3 ML NEB RESP TX SCH ×4 (00:13→23:15)
[2020-03-27] MEDS: ALBUMIN 25% 25 GM in PREMIX 1 EACH IV SCH ×2 (03:30→14:58)
[2020-03-27 04:34] LABS: ABG Base Excess 12.5 MMOL/L (-2.5-2.5); ABG HCO3 36.3 MMOL/L (20-26); ABG PCO2 67.4 MM HG (35-48); ABG PH 7.384 (7.35-7.45); ABG TCO2 36.9 MMOL/L (23-27)
[2020-03-27] MEDS: INSULIN REGULAR 100 UNIT/ML SUBCUT SCH ×5 (04:44→23:36)
[2020-03-27 04:52] LABS: Basophils # 0.1 10*3/uL (0.0-0.2); Basophils % 0.2 % (0.0-0.8); Hematocrit 29.6 VOL% (35.7-47.0); Hemoglobin 9.4 GM/DL (12.0-16.0); Immature Granulocytes % 4.2 %; Immature Granulocytes Absolute 0.94 #; Lymphocytes # 0.3 10*3/uL (1.4-4.0); Lymphocytes % 1.2 % (21.3-54.2); Mean Corpuscular HGB Conc 31.8 GM/DL (32-36); Mean Corpuscular Volume 95.2 FL (87-102); Mean Platelet Volume 10.2 FL (9.6-12.0); Monocytes % 1.3 % (1.7-12.7); Neutrophils % 93.1 % (38.7-73.9); Platelet Count 221 T/CUMM (130-400); Red Blood Count 3.11 MC/CUMM (3.8-5.5); Red Cell Distribution Width 16.9 % (9.3-17.3); White Blood Count 22.2 T/CUMM (4-12)
[2020-03-27] MEDS: dilTIAZem Drip 125 MG/125 ML PREMIX IV SCH (05:04)
[2020-03-27] MEDS: MEROPENEM 500 MG in SODIUM CHLORIDE 0.9% 100 ML IV SCH ×4 (05:05→20:36)
[2020-03-27 05:13] LABS: Band Neutrophils 2 % (0-10); Lymphocytes 1 % (20-55); Platelet Estimate Normal; Segmented Neutrophils 96 % (50-85); Total Cells Counted 100
[2020-03-27 05:14] LABS: Albumin 2.8 G/DL (3.4-5.0); Bilirubin,Total 0.6 MG/DL (0.2-1.0); Calcium 9.3 MG/DL (8.5-10.1); Osmolality,Calculated 288.4 MOS/KG (273-304); Total Protein 6.8 G/DL (6.4-8.3)
[2020-03-27] MEDS: LEVOTHYROXINE 150 MCG TABLET PO SCH (06:39)
[2020-03-27] MEDS: fentaNYL INJ 2,500 MCG in SODIUM CHLORIDE 0.9% 75 ML IV PRN ×2 (07:22→14:30)
[2020-03-27] MEDS: SPIRONOLACTONE 25 MG TABLET PO SCH ×2 (08:54→20:36)
[2020-03-27] MEDS: ASCORBIC ACID 500 MG TABLET PO SCH (08:55)
[2020-03-27] MEDS: FAMOTIDINE 20 MG TABLET PER TUBE SCH ×2 (08:55→21:20)
[2020-03-27] MEDS: FUROSEMIDE 40 MG/4 ML VIAL IV SCH (08:55)
[2020-03-27] MEDS: FLUTICASONE 50 MCG NASAL SPRAY 16 GM BOTTLE BOTH NARES SCH ×2 (08:55→21:02)
[2020-03-27] MEDS: FLUoxetine 20 MG CAPSULE PO SCH (08:55)
[2020-03-27] MEDS: NEOMYCIN/POLYMYXIN/BACITRACIN OINT 28.4 GM TUBE TOP SCH ×3 (08:55→21:21)
[2020-03-27] MEDS: CHOLECALCIFEROL 1,000 UNIT TABLET PO SCH (08:56)
[2020-03-27] MEDS: POTASSIUM CHLORIDE RIDER 20 MEQ in PREMIX 1 EACH IV PRN (08:57)
[2020-03-27] MEDS: methylPREDNISolone SOD SUC 40 MG/1 ML VIAL IV SCH ×2 (09:43→21:20)
[2020-03-27 12:14] LABS: ABG Base Excess 14.4 MMOL/L (-2.5-2.5); ABG HCO3 38.3 MMOL/L (20-26); ABG Oxygen Saturation 97.5 % (95-100); ABG PH 7.346 (7.35-7.45); ABG PO2 99.7 MM HG (80-95); ABG TCO2 40.1 MMOL/L (23-27)
[2020-03-27 12:15] LABS: Allen Test Positive; Pt O2 Delivery Device Ventilator
[2020-03-27] MEDS: DILTIAZEM 30 MG TABLET PO SCH ×3 (12:51→20:35)
[2020-03-27] MEDS ORDERED: MIDAZOLAM 2 MG/2 ML VIAL IV PRN ×2 (15:11)
[2020-03-27] MEDS: DEXMEDETOMIDINE 400 MCG in SODIUM CHLORIDE 0.9% 96 ML IV PRN ×2 (15:15→21:27)
[2020-03-27 16:19] LABS: Allen Test Positive; Pt O2 Delivery Device Ventilator
[2020-03-27 16:21] LABS: ABG Base Excess 15.8 MMOL/L (-2.5-2.5); ABG HCO3 39.6 MMOL/L (20-26); ABG Oxygen Saturation 88.8 % (95-100); ABG PCO2 62.8 MM HG (35-48); ABG PO2 53.6 MM HG (80-95); ABG TCO2 39.4 MMOL/L (23-27)
[2020-03-27] MEDS: valACYclovir 500 MG TABLET PO SCH (20:36)
[2020-03-28] MEDS: MEROPENEM 500 MG in SODIUM CHLORIDE 0.9% 100 ML IV SCH ×4 (02:18→20:33)
[2020-03-28] MEDS: ALBUMIN 25% 25 GM in PREMIX 1 EACH IV SCH (02:35)
[2020-03-28] MEDS: DEXMEDETOMIDINE 400 MCG in SODIUM CHLORIDE 0.9% 96 ML IV PRN ×4 (02:50→19:15)
[2020-03-28 04:38] LABS: ABG Base Excess 14.5 MMOL/L (-2.5-2.5); ABG HCO3 38.4 MMOL/L (20-26); ABG Oxygen Saturation 99.4 % (95-100); ABG PCO2 53.7 MM HG (35-48); ABG PH 7.487 (7.35-7.45); ABG TCO2 35.6 MMOL/L (23-27); Allen Test Positive; Pt O2 Delivery Device Ventilator
[2020-03-28 05:07] LABS: Basophils % 0.2 % (0.0-0.8); Hematocrit 25.9 VOL% (35.7-47.0); Hemoglobin 8.3 GM/DL (12.0-16.0); Immature Granulocytes % 3.3 %; Immature Granulocytes Absolute 0.68 #; Lymphocytes # 0.2 10*3/uL (1.4-4.0); Lymphocytes % 0.9 % (21.3-54.2); Mean Corpuscular Volume 94.9 FL (87-102); Monocytes % 1.9 % (1.7-12.7); Neutrophils % 93.7 % (38.7-73.9); Platelet Count 219 T/CUMM (130-400); Red Blood Count 2.73 MC/CUMM (3.8-5.5); Red Cell Distribution Width 16.6 % (9.3-17.3); White Blood Count 20.9 T/CUMM (4-12)
[2020-03-28 05:26] LABS: Osmolality,Calculated 284.5 MOS/KG (273-304)
[2020-03-28 05:54] LABS: Band Neutrophils 1 % (0-10); Hypochromasia 1+; Lymphocytes 1 % (20-55); Microcytosis 1+; Segmented Neutrophils 96 % (50-85); Stomatocytes Slight; Total Cells Counted 100
[2020-03-28 05:55] LABS: Platelet Estimate Normal
[2020-03-28] MEDS: INSULIN REGULAR 100 UNIT/ML SUBCUT SCH ×4 (05:57→23:51)
[2020-03-28] MEDS: LEVOTHYROXINE 150 MCG TABLET PO SCH (06:19)
[2020-03-28] MEDS: POTASSIUM CHLORIDE RIDER 20 MEQ in PREMIX 1 EACH IV PRN (06:23)
[2020-03-28] MEDS: LEVALBUTEROL 1.25 MG/3 ML NEB RESP TX SCH ×2 (07:06→15:05)
[2020-03-28] MEDS: DILTIAZEM 30 MG TABLET PO SCH ×4 (08:34→20:34)
[2020-03-28] MEDS: FUROSEMIDE 40 MG/4 ML VIAL IV SCH (08:34)
[2020-03-28] MEDS: SPIRONOLACTONE 25 MG TABLET PO SCH ×2 (08:34→20:34)
[2020-03-28] MEDS: FLUTICASONE 50 MCG NASAL SPRAY 16 GM BOTTLE BOTH NARES SCH ×2 (08:34→20:35)
[2020-03-28] MEDS: FAMOTIDINE 20 MG TABLET PER TUBE SCH ×2 (08:35→20:34)
[2020-03-28] MEDS: FLUoxetine 20 MG CAPSULE PO SCH (08:35)
[2020-03-28] MEDS: valACYclovir 500 MG TABLET PO SCH ×2 (08:35→20:34)
[2020-03-28] MEDS: NEOMYCIN/POLYMYXIN/BACITRACIN OINT 28.4 GM TUBE TOP SCH ×3 (08:35→20:35)
[2020-03-28] MEDS: CHOLECALCIFEROL 1,000 UNIT TABLET PO SCH (08:35)
[2020-03-28] MEDS: ASCORBIC ACID 500 MG TABLET PO SCH (08:35)
[2020-03-28] MEDS: ACETAMINOPHEN 325 MG/10.15 ML UDCUP PO PRN (08:36)
[2020-03-28] MEDS: methylPREDNISolone SOD SUC 40 MG/1 ML VIAL IV SCH (10:29)
[2020-03-28] MEDS: predniSONE 10 MG TABLET PO SCH (10:59)
[2020-03-29] MEDS: LEVALBUTEROL 1.25 MG/3 ML NEB RESP TX SCH ×4 (00:21→23:02)
[2020-03-29] MEDS: DEXMEDETOMIDINE 400 MCG in SODIUM CHLORIDE 0.9% 96 ML IV PRN ×5 (00:55→22:15)
[2020-03-29 04:23] LABS: Basophils # 0.1 10*3/uL (0.0-0.2); Basophils % 0.3 % (0.0-0.8); Eosinophils # 0.3 10*3/uL (0.0-0.87); Eosinophils % 1.7 % (0.00-10.9); Hematocrit 27.8 VOL% (35.7-47.0); Hemoglobin 8.9 GM/DL (12.0-16.0); Immature Granulocytes % 5.6 %; Immature Granulocytes Absolute 0.97 #; Lymphocytes # 0.6 10*3/uL (1.4-4.0); Lymphocytes % 3.4 % (21.3-54.2); Mean Corpuscular Volume 95.2 FL (87-102); Mean Platelet Volume 9.8 FL (9.6-12.0); Monocytes % 2.3 % (1.7-12.7); Neutrophils % 86.7 % (38.7-73.9); Platelet Count 235 T/CUMM (130-400); Red Blood Count 2.92 MC/CUMM (3.8-5.5); Red Cell Distribution Width 16.7 % (9.3-17.3); White Blood Count 17.2 T/CUMM (4-12)
[2020-03-29 04:28] LABS: Allen Test Positive; Pt O2 Delivery Device Ventilator
[2020-03-29 04:31] LABS: ABG HCO3 37.7 MMOL/L (20-26); ABG Oxygen Saturation 91.5 % (95-100); ABG PCO2 49.7 MM HG (35-48); ABG PH 7.498 (7.35-7.45); ABG PO2 60.9 MM HG (80-95); ABG TCO2 39.2 MMOL/L (23-27)
[2020-03-29 04:42] LABS: Band Neutrophils 1 % (0-10); Eosinophils 1 % (0-10); Lymphocytes 5 % (20-55); Platelet Estimate Normal; Segmented Neutrophils 92 % (50-85); Total Cells Counted 100
[2020-03-29 04:43] LABS: Hypochromasia Slight
[2020-03-29 04:45] LABS: Calcium 8.8 MG/DL (8.5-10.1); Osmolality,Calculated 281.8 MOS/KG (273-304)
[2020-03-29] MEDS: POTASSIUM CHLORIDE RIDER 20 MEQ in PREMIX 1 EACH IV PRN ×3 (05:17→12:32)
[2020-03-29] MEDS: INSULIN REGULAR 100 UNIT/ML SUBCUT SCH ×3 (05:17→17:47)
[2020-03-29] MEDS: LEVOTHYROXINE 150 MCG TABLET PO SCH (05:17)
[2020-03-29] MEDS: SPIRONOLACTONE 25 MG TABLET PO SCH ×2 (09:23→22:06)
[2020-03-29] MEDS: ASCORBIC ACID 500 MG TABLET PO SCH (09:23)
[2020-03-29] MEDS: valACYclovir 500 MG TABLET PO SCH ×2 (09:24→21:59)
[2020-03-29] MEDS: CHOLECALCIFEROL 1,000 UNIT TABLET PO SCH (09:24)
[2020-03-29] MEDS: DILTIAZEM 30 MG TABLET PO SCH ×3 (09:24→17:47)
[2020-03-29] MEDS: predniSONE 10 MG TABLET PO SCH (09:24)
[2020-03-29] MEDS: FAMOTIDINE 20 MG TABLET PER TUBE SCH ×2 (09:24→21:59)
[2020-03-29] MEDS: FLUoxetine 20 MG CAPSULE PO SCH (09:24)
[2020-03-29] MEDS: FUROSEMIDE 40 MG/4 ML VIAL IV SCH (09:25)
[2020-03-29] MEDS: NEOMYCIN/POLYMYXIN/BACITRACIN OINT 28.4 GM TUBE TOP SCH ×3 (09:42→22:03)
[2020-03-29] MEDS: FLUTICASONE 50 MCG NASAL SPRAY 16 GM BOTTLE BOTH NARES SCH ×2 (09:42→22:00)
[2020-03-29] MEDS: POTASSIUM CHLORIDE RIDER 10 MEQ in PREMIX 1 EACH IV PRN (14:39)
[2020-03-29] MEDS ORDERED: MORPHINE 4 MG/1 ML VIAL ONE (20:40)
[2020-03-29] MEDS ORDERED: MORPHINE 4 MG/1 ML VIAL IV ONE (20:41)
[2020-03-29 22:41] LABS: Herpes Source DERMAL
[2020-03-30] MEDS: DILTIAZEM 30 MG TABLET PO SCH ×4 (00:53→18:05)
[2020-03-30] MEDS: INSULIN REGULAR 100 UNIT/ML SUBCUT SCH ×4 (00:54→18:05)
[2020-03-30 03:11] LABS: ABG Base Excess 7.1 MMOL/L (-2.5-2.5); ABG HCO3 30.9 MMOL/L (20-26); ABG Oxygen Saturation 94.1 % (95-100); ABG PCO2 65.6 MM HG (35-48); ABG PH 7.335 (7.35-7.45); ABG PO2 75.2 MM HG (80-95); ABG TCO2 32.1 MMOL/L (23-27); Allen Test Positive; Pt O2 Delivery Device Ventilator
[2020-03-30 03:58] LABS: Basophils # 0.1 10*3/uL (0.0-0.2); Basophils % 0.3 % (0.0-0.8); Eosinophils # 0.3 10*3/uL (0.0-0.87); Hematocrit 31.2 VOL% (35.7-47.0); Hemoglobin 9.9 GM/DL (12.0-16.0); Immature Granulocytes % 4.9 %; Immature Granulocytes Absolute 1.41 #; Lymphocytes # 0.4 10*3/uL (1.4-4.0); Lymphocytes % 1.4 % (21.3-54.2); Mean Corpuscular HGB Conc 31.7 GM/DL (32-36); Mean Platelet Volume 9.9 FL (9.6-12.0); Monocytes % 1.7 % (1.7-12.7); Neutrophils % 90.7 % (38.7-73.9); Platelet Count 305 T/CUMM (130-400); Red Blood Count 3.25 MC/CUMM (3.8-5.5); Red Cell Distribution Width 16.2 % (9.3-17.3); White Blood Count 28.6 T/CUMM (4-12)
[2020-03-30] MEDS: DEXMEDETOMIDINE 400 MCG in SODIUM CHLORIDE 0.9% 96 ML IV PRN (03:59)
[2020-03-30 04:16] LABS: Calcium 9.2 MG/DL (8.5-10.1); Osmolality,Calculated 277.2 MOS/KG (273-304)
[2020-03-30 04:19] LABS: Band Neutrophils 3 % (0-10); Eosinophils 2 % (0-10); Hypochromasia 1+; Lymphocytes 2 % (20-55); Microcytosis 1+; Platelet Estimate Adequate; Segmented Neutrophils 92 % (50-85); Total Cells Counted 100
[2020-03-30] MEDS: POTASSIUM CHLORIDE RIDER 20 MEQ in PREMIX 1 EACH IV PRN ×2 (06:18→08:23)
[2020-03-30] MEDS: LEVOTHYROXINE 150 MCG TABLET PO SCH (06:21)
[2020-03-30] MEDS: ACETAMINOPHEN 325 MG/10.15 ML UDCUP PO PRN (06:29)
[2020-03-30] MEDS: LEVALBUTEROL 1.25 MG/3 ML NEB RESP TX SCH ×3 (07:50→23:22)
[2020-03-30] MEDS: ASCORBIC ACID 500 MG TABLET PO SCH (09:57)
[2020-03-30] MEDS: FLUoxetine 20 MG CAPSULE PO SCH (09:57)
[2020-03-30] MEDS: CHOLECALCIFEROL 1,000 UNIT TABLET PO SCH (09:57)
[2020-03-30] MEDS: FUROSEMIDE 40 MG/4 ML VIAL IV SCH (09:57)
[2020-03-30] MEDS: predniSONE 10 MG TABLET PO SCH (09:57)
[2020-03-30] MEDS: FAMOTIDINE 20 MG TABLET PER TUBE SCH ×2 (09:57→20:54)
[2020-03-30] MEDS: SPIRONOLACTONE 25 MG TABLET PO SCH ×2 (09:57→20:54)
[2020-03-30] MEDS: NEOMYCIN/POLYMYXIN/BACITRACIN OINT 28.4 GM TUBE TOP SCH ×3 (10:01→20:55)
[2020-03-30] MEDS: FLUTICASONE 50 MCG NASAL SPRAY 16 GM BOTTLE BOTH NARES SCH ×2 (10:01→20:55)
[2020-03-30 10:02] LABS: Bilirubin,Urine Negative (Negative); Blood, Urine Negative (Negative); Glucose,Urine (UA) Negative (Negative); Ketones,Urine Negative (Negative); Mucus,Urine Occasional /LPF (Occasional); Nitrite,Urine Negative (Negative); Protein,Urine 30 MG/DL; RBC,Urine 3 /HPF (0-4); Squamous Epithelial Cell,Urine Occasional /HPF (0-10); Urine Appearance Slightly Hazy (Clear); Urine Color Amber (Yellow); Urine Specific Gravity 1.024 (1.001-1.035); WBC,Urine 1 /HPF (0-6)
[2020-03-30] MEDS: ACYCLOVIR 5% OINT 15 GM TUBE TOP SCH ×4 (10:07→21:04)
[2020-03-30] MEDS: ACYCLOVIR INJ 1,000 MG in SODIUM CHLORIDE 0.9% 250 ML IV SCH ×2 (10:07→18:05)
[2020-03-30] MEDS: fentaNYL INJ 1,250 MCG in SODIUM CHLORIDE 0.9% 225 ML IV PRN ×2 (10:19→15:53)
[2020-03-30] MEDS: CISATRACURIUM 200 MG in SODIUM CHLORIDE 0.9% 180 ML IV PRN (10:49)
[2020-03-30 10:50] LABS: ABG Base Excess 4.7 MMOL/L (-2.5-2.5); ABG HCO3 28.7 MMOL/L (20-26); ABG Oxygen Saturation 97.8 % (95-100); ABG TCO2 33.9 MMOL/L (23-27)
[2020-03-30 10:53] LABS: ABG PH 7.189 (7.35-7.45)
[2020-03-30 10:54] LABS: ABG PCO2 95.5 MM HG (35-48)
[2020-03-30] MEDS: PHENYLEPHRINE DRIP 40 MG/250 ML PREMIX IV PRN ×2 (12:40→19:54)
[2020-03-30] MEDS ORDERED: PHENYLEPHRINE DRIP 40 MG/250 ML PREMIX IV ONE (12:41)
[2020-03-30 13:28] LABS: Basophils # 0.1 10*3/uL (0.0-0.2); Basophils % 0.2 % (0.0-0.8); Eosinophils % 0.1 % (0.00-10.9); Hematocrit 30.9 VOL% (35.7-47.0); Hemoglobin 9.7 GM/DL (12.0-16.0); Immature Granulocytes Absolute 1.71 #; Lymphocytes # 0.3 10*3/uL (1.4-4.0); Lymphocytes % 0.8 % (21.3-54.2); Mean Corpuscular HGB Conc 31.4 GM/DL (32-36); Mean Corpuscular Volume 96.6 FL (87-102); Mean Platelet Volume 10.2 FL (9.6-12.0); Monocytes % 1.7 % (1.7-12.7); Neutrophils % 92.2 % (38.7-73.9); White Blood Count 34.1 T/CUMM (4-12)
[2020-03-30 13:29] LABS: Platelet Count 383 T/CUMM (130-400)
[2020-03-30 14:09] LABS: ABG Base Excess 4.2 MMOL/L (-2.5-2.5); ABG HCO3 28.2 MMOL/L (20-26); ABG Oxygen Saturation 95.9 % (95-100)
[2020-03-30 14:17] LABS: ABG PH 7.143 (7.35-7.45)
[2020-03-30] MEDS: FUROSEMIDE INJ 100 MG in SODIUM CHLORIDE 0.9% 90 ML IV SCH (14:54)
[2020-03-30 16:07] LABS: ABG Base Excess 3.8 MMOL/L (-2.5-2.5); ABG HCO3 34.9 MMOL/L (20-26); ABG Oxygen Saturation 94.8 % (95-100); ABG PO2 89.3 MM HG (80-95); ABG TCO2 38.1 MMOL/L (23-27)
[2020-03-30 16:15] LABS: ABG PH 7.144 (7.35-7.45)
[2020-03-30 17:02] LABS: Band Neutrophils 3 % (0-10); Hypochromasia 2+; Lymphocytes 1 % (20-55); Macrocytosis 1+; Metamyelocytes 2 %; Myelocytes 2 %; Segmented Neutrophils 91 % (50-85); Total Cells Counted 100
[2020-03-30 17:03] LABS: Platelet Estimate Increased; Polychromasia 1+; Toxic Granulation 1+
[2020-03-30] MEDS: fentaNYL INJ 2,500 MCG in SODIUM CHLORIDE 0.9% 450 ML IV PRN (20:35)
[2020-03-31] MEDS: INSULIN REGULAR 100 UNIT/ML SUBCUT SCH ×4 (00:27→17:10)
[2020-03-31] MEDS: DILTIAZEM 30 MG TABLET PO SCH ×4 (00:38→17:09)
[2020-03-31] MEDS: ACYCLOVIR INJ 1,000 MG in SODIUM CHLORIDE 0.9% 250 ML IV SCH ×2 (02:38→09:31)
[2020-03-31 03:34] LABS: ABG Base Excess 1.1 MMOL/L (-2.5-2.5); ABG HCO3 31.7 MMOL/L (20-26); ABG Oxygen Saturation 97.7 % (95-100); ABG PO2 116.3 MM HG (80-95); ABG TCO2 34.8 MMOL/L (23-27); Allen Test Positive; Pt O2 Delivery Device Ventilator
[2020-03-31 03:53] LABS: ABG PCO2 99.6 MM HG (35-48); ABG PH 7.121 (7.35-7.45)
[2020-03-31] MEDS: fentaNYL INJ 2,500 MCG in SODIUM CHLORIDE 0.9% 450 ML IV PRN ×3 (05:03→22:28)
[2020-03-31] MEDS: PHENYLEPHRINE DRIP 40 MG/250 ML PREMIX IV PRN ×2 (05:13→22:31)
[2020-03-31 05:25] LABS: Albumin 2.1 G/DL (3.4-5.0); Bilirubin,Total 0.8 MG/DL (0.2-1.0); Calcium 8.5 MG/DL (8.5-10.1); Osmolality,Calculated 281.2 MOS/KG (273-304); Total Protein 6.1 G/DL (6.4-8.3)
[2020-03-31] MEDS: LEVOTHYROXINE 150 MCG TABLET PO SCH (05:32)
[2020-03-31] MEDS: FUROSEMIDE INJ 100 MG in SODIUM CHLORIDE 0.9% 90 ML IV SCH ×4 (06:06→18:21)
[2020-03-31] MEDS: ACYCLOVIR 5% OINT 15 GM TUBE TOP SCH ×5 (06:43→21:18)
[2020-03-31 06:56] LABS: Calcium 8.9 MG/DL (8.5-10.1)
[2020-03-31] MEDS: LEVALBUTEROL 1.25 MG/3 ML NEB RESP TX SCH ×3 (07:22→23:02)
[2020-03-31] MEDS: CISATRACURIUM 200 MG in SODIUM CHLORIDE 0.9% 180 ML IV PRN (07:41)
[2020-03-31] MEDS: SPIRONOLACTONE 25 MG TABLET PO SCH (08:11)
[2020-03-31] MEDS: FAMOTIDINE 20 MG TABLET PER TUBE SCH ×2 (08:11→21:17)
[2020-03-31] MEDS: predniSONE 10 MG TABLET PO SCH (08:11)
[2020-03-31] MEDS: FLUoxetine 20 MG CAPSULE PO SCH (08:11)
[2020-03-31] MEDS: ASCORBIC ACID 500 MG TABLET PO SCH (08:11)
[2020-03-31] MEDS: CHOLECALCIFEROL 1,000 UNIT TABLET PO SCH (08:11)
[2020-03-31] MEDS: NEOMYCIN/POLYMYXIN/BACITRACIN OINT 28.4 GM TUBE TOP SCH ×3 (08:12→21:18)
[2020-03-31] MEDS: FLUTICASONE 50 MCG NASAL SPRAY 16 GM BOTTLE BOTH NARES SCH ×2 (08:46→21:21)
[2020-03-31] MEDS: FUROSEMIDE 40 MG/4 ML VIAL IV SCH (08:46)
[2020-03-31 09:31] LABS: Basophils # 0.1 10*3/uL (0.0-0.2); Basophils % 0.2 % (0.0-0.8); Eosinophils # 0.2 10*3/uL (0.0-0.87); Eosinophils % 0.8 % (0.00-10.9); Hematocrit 25.7 VOL% (35.7-47.0); Immature Granulocytes % 7.3 %; Immature Granulocytes Absolute 1.88 #; Lymphocytes # 0.3 10*3/uL (1.4-4.0); Mean Corpuscular HGB Conc 31.1 GM/DL (32-36); Mean Platelet Volume 10.3 FL (9.6-12.0); Monocytes % 1.5 % (1.7-12.7); NRBC # 0.03 10*3/uL; Neutrophils % 89.2 % (38.7-73.9); Platelet Count 298 T/CUMM (130-400); Red Blood Count 2.65 MC/CUMM (3.8-5.5); Red Cell Distribution Width 15.6 % (9.3-17.3); White Blood Count 25.9 T/CUMM (4-12)
[2020-03-31 09:59] LABS: Band Neutrophils 3 % (0-10); Eosinophils 2 % (0-10); Lymphocytes 1 % (20-55); Metamyelocytes 1 %; Myelocytes 1 %; Segmented Neutrophils 91 % (50-85); Total Cells Counted 100
[2020-03-31 10:00] LABS: Anisocytosis 1+; Hypochromasia 1+; Platelet Estimate Normal
[2020-03-31 12:32] LABS: ABG Base Excess -1.6 MMOL/L (-2.5-2.5); ABG HCO3 23.1 MMOL/L (20-26); ABG Oxygen Saturation 99.2 % (95-100); ABG TCO2 29.5 MMOL/L (23-27)
[2020-03-31 12:38] LABS: ABG PCO2 98.1 MM HG (35-48); ABG PH 7.102 (7.35-7.45)
[2020-03-31 13:17] LABS: Basophils % 0.2 % (0.0-0.8); Eosinophils # 0.1 10*3/uL (0.0-0.87); Eosinophils % 0.5 % (0.00-10.9); Hematocrit 25.5 VOL% (35.7-47.0); Immature Granulocytes % 7.4 %; Immature Granulocytes Absolute 1.78 #; Lymphocytes # 0.2 10*3/uL (1.4-4.0); Lymphocytes % 0.7 % (21.3-54.2); Mean Corpuscular HGB Conc 31.4 GM/DL (32-36); Mean Corpuscular Volume 97.3 FL (87-102); Mean Platelet Volume 10.1 FL (9.6-12.0); Monocytes % 1.8 % (1.7-12.7); Neutrophils % 89.4 % (38.7-73.9); Platelet Count 281 T/CUMM (130-400); Red Blood Count 2.62 MC/CUMM (3.8-5.5); Red Cell Distribution Width 15.6 % (9.3-17.3); White Blood Count 24.1 T/CUMM (4-12)
[2020-03-31] MEDS: LEVOFLOXACIN INJ 750 MG in PREMIX 1 EACH IV SCH (13:51)
[2020-03-31] MEDS: MEROPENEM 500 MG in SODIUM CHLORIDE 0.9% 100 ML IV SCH ×2 (13:53→19:39)
[2020-03-31 14:18] LABS: ABG Base Excess -0.5 MMOL/L (-2.5-2.5); ABG TCO2 28.3 MMOL/L (23-27)
[2020-03-31 14:47] LABS: ABG PCO2 80.8 MM HG (35-48); ABG PH 7.171 (7.35-7.45)
[2020-03-31] MEDS: VANCOMYCIN INJ 1,500 MG in SODIUM CHLORIDE 0.9% 500 ML IV SCH (14:47)
[2020-03-31 15:22] LABS: Band Neutrophils 2 % (0-10); Eosinophils 1 % (0-10); Platelet Estimate Adequate; Segmented Neutrophils 94 % (50-85); Total Cells Counted 100
[2020-03-31 15:24] LABS: Anisocytosis Slight; Polychromasia Few
[2020-03-31 15:25] LABS: Hypochromasia Slight
[2020-03-31] MEDS: ACYCLOVIR INJ 500 MG in SODIUM CHLORIDE 0.9% 100 ML IV SCH (17:11)
[2020-04-01] MEDS: INSULIN REGULAR 100 UNIT/ML SUBCUT SCH ×4 (00:07→17:48)
[2020-04-01] MEDS: DILTIAZEM 30 MG TABLET PO SCH ×5 (00:12→23:03)
[2020-04-01] MEDS: MEROPENEM 500 MG in SODIUM CHLORIDE 0.9% 100 ML IV SCH ×4 (01:13→20:26)
[2020-04-01] MEDS: CISATRACURIUM 200 MG in SODIUM CHLORIDE 0.9% 180 ML IV PRN ×2 (01:39→20:26)
[2020-04-01] MEDS: FUROSEMIDE INJ 100 MG in SODIUM CHLORIDE 0.9% 90 ML IV SCH ×5 (01:40→16:51)
[2020-04-01] MEDS: ACYCLOVIR INJ 500 MG in SODIUM CHLORIDE 0.9% 100 ML IV SCH ×3 (01:45→17:44)
[2020-04-01 04:50] LABS: ABG Base Excess -1.4 MMOL/L (-2.5-2.5); ABG HCO3 23.3 MMOL/L (20-26); ABG Oxygen Saturation 99.4 % (95-100); Allen Test Positive; Pt O2 Delivery Device Ventilator
[2020-04-01 05:15] LABS: ABG PH 7.132 (7.35-7.45)
[2020-04-01 05:16] LABS: ABG PCO2 92.1 MM HG (35-48)
[2020-04-01] MEDS: ACYCLOVIR 5% OINT 15 GM TUBE TOP SCH ×5 (05:55→21:18)
[2020-04-01] MEDS: LEVOTHYROXINE 150 MCG TABLET PO SCH (05:55)
[2020-04-01 06:49] LABS: Basophils # 0.1 10*3/uL (0.0-0.2); Basophils % 0.3 % (0.0-0.8); Eosinophils # 0.3 10*3/uL (0.0-0.87); Eosinophils % 1.4 % (0.00-10.9); Hematocrit 24.1 VOL% (35.7-47.0); Hemoglobin 7.5 GM/DL (12.0-16.0); Immature Granulocytes % 8.9 %; Immature Granulocytes Absolute 1.61 #; Lymphocytes # 0.1 10*3/uL (1.4-4.0); Lymphocytes % 0.6 % (21.3-54.2); Mean Corpuscular HGB Conc 31.1 GM/DL (32-36); Mean Platelet Volume 10.6 FL (9.6-12.0); Monocytes % 2.3 % (1.7-12.7); Neutrophils % 86.5 % (38.7-73.9); Platelet Count 288 T/CUMM (130-400); Red Blood Count 2.51 MC/CUMM (3.8-5.5); Red Cell Distribution Width 15.5 % (9.3-17.3); White Blood Count 18.1 T/CUMM (4-12)
[2020-04-01 07:04] LABS: Osmolality,Calculated 291.8 MOS/KG (273-304)
[2020-04-01 07:08] LABS: Bilirubin,Total 0.7 MG/DL (0.2-1.0); Osmolality,Calculated 290.8 MOS/KG (273-304); Total Protein 5.8 G/DL (6.4-8.3)
[2020-04-01 07:20] LABS: Band Neutrophils 9 % (0-10); Lymphocytes 2 % (20-55); Platelet Estimate Normal; Polychromasia Slight; Segmented Neutrophils 75 % (50-85); Total Cells Counted 100
[2020-04-01] MEDS: fentaNYL INJ 2,500 MCG in SODIUM CHLORIDE 0.9% 450 ML IV PRN ×2 (07:31→15:45)
[2020-04-01] MEDS: LEVALBUTEROL 1.25 MG/3 ML NEB RESP TX SCH ×3 (07:45→23:10)
[2020-04-01] MEDS: CHOLECALCIFEROL 1,000 UNIT TABLET PO SCH (08:10)
[2020-04-01] MEDS: ASCORBIC ACID 500 MG TABLET PO SCH (08:10)
[2020-04-01] MEDS: FAMOTIDINE 20 MG TABLET PER TUBE SCH ×2 (08:11→21:17)
[2020-04-01] MEDS: POTASSIUM CHLORIDE RIDER 20 MEQ in PREMIX 1 EACH IV PRN ×5 (08:11→23:44)
[2020-04-01] MEDS: FLUoxetine 20 MG CAPSULE PO SCH (08:11)
[2020-04-01] MEDS: VANCOMYCIN INJ 1,500 MG in SODIUM CHLORIDE 0.9% 500 ML IV SCH (08:12)
[2020-04-01] MEDS: NEOMYCIN/POLYMYXIN/BACITRACIN OINT 28.4 GM TUBE TOP SCH ×3 (08:22→21:18)
[2020-04-01] MEDS: predniSONE 10 MG TABLET PO SCH (08:22)
[2020-04-01] MEDS: FLUTICASONE 50 MCG NASAL SPRAY 16 GM BOTTLE BOTH NARES SCH ×2 (08:23→21:17)
[2020-04-01] MEDS: POTASSIUM CHLORIDE RIDER 10 MEQ in PREMIX 1 EACH IV PRN (11:22)
[2020-04-01 12:08] LABS: ABG Base Excess -0.9 MMOL/L (-2.5-2.5); ABG HCO3 23.7 MMOL/L (20-26); ABG TCO2 27.1 MMOL/L (23-27)
[2020-04-01 12:12] LABS: ABG PCO2 71.9 MM HG (35-48)
[2020-04-01] MEDS: LEVOFLOXACIN INJ 750 MG in PREMIX 1 EACH IV SCH (12:55)
[2020-04-01] MEDS ORDERED: POTASSIUM CHLORIDE 20 MEQ/15 ML UDCUP PER TUBE ONE (23:44)
[2020-04-02] MEDS: INSULIN REGULAR 100 UNIT/ML SUBCUT SCH ×4 (00:15→18:04)
[2020-04-02] MEDS: fentaNYL INJ 2,500 MCG in SODIUM CHLORIDE 0.9% 450 ML IV PRN ×3 (00:30→18:11)
[2020-04-02] MEDS: FUROSEMIDE INJ 100 MG in SODIUM CHLORIDE 0.9% 90 ML IV SCH ×6 (00:31→22:23)
[2020-04-02] MEDS: MEROPENEM 500 MG in SODIUM CHLORIDE 0.9% 100 ML IV SCH ×4 (01:31→19:46)
[2020-04-02] MEDS: ACYCLOVIR INJ 500 MG in SODIUM CHLORIDE 0.9% 100 ML IV SCH ×3 (02:10→18:03)
[2020-04-02] MEDS: VANCOMYCIN INJ 1,500 MG in SODIUM CHLORIDE 0.9% 500 ML IV SCH ×2 (03:14→20:51)
[2020-04-02 04:33] LABS: ABG Base Excess -0.4 MMOL/L (-2.5-2.5); ABG HCO3 28.2 MMOL/L (20-26); ABG Oxygen Saturation 97.5 % (95-100); ABG TCO2 30.5 MMOL/L (23-27); Allen Test Positive; Pt O2 Delivery Device Ventilator
[2020-04-02 04:35] LABS: ABG PCO2 74.1 MM HG (35-48); ABG PH 7.198 (7.35-7.45)
[2020-04-02] MEDS: DILTIAZEM 30 MG TABLET PO SCH ×4 (05:10→23:38)
[2020-04-02] MEDS: LEVOTHYROXINE 150 MCG TABLET PO SCH (05:10)
[2020-04-02] MEDS: ACYCLOVIR 5% OINT 15 GM TUBE TOP SCH ×5 (05:25→21:02)
[2020-04-02 05:27] LABS: Basophils % 0.2 % (0.0-0.8); Eosinophils # 0.2 10*3/uL (0.0-0.87); Eosinophils % 1.2 % (0.00-10.9); Hemoglobin 7.3 GM/DL (12.0-16.0); Immature Granulocytes % 8.6 %; Immature Granulocytes Absolute 1.27 #; Lymphocytes # 0.1 10*3/uL (1.4-4.0); Lymphocytes % 0.6 % (21.3-54.2); Mean Corpuscular HGB Conc 31.7 GM/DL (32-36); Mean Corpuscular Volume 96.2 FL (87-102); Mean Platelet Volume 10.3 FL (9.6-12.0); Monocytes % 2.9 % (1.7-12.7); NRBC # 0.03 10*3/uL; Neutrophils % 86.5 % (38.7-73.9); Platelet Count 296 T/CUMM (130-400); Red Blood Count 2.39 MC/CUMM (3.8-5.5); Red Cell Distribution Width 16.3 % (9.3-17.3); White Blood Count 14.8 T/CUMM (4-12)
[2020-04-02 05:39] LABS: Osmolality,Calculated 299.3 MOS/KG (273-304)
[2020-04-02 05:42] LABS: Albumin 1.9 G/DL (3.4-5.0); Bilirubin,Total 0.7 MG/DL (0.2-1.0); Calcium 8.4 MG/DL (8.5-10.1); Osmolality,Calculated 293.7 MOS/KG (273-304)
[2020-04-02] MEDS ORDERED: SODIUM CHLORIDE 0.9% 500 ML IV ONE (06:20)
[2020-04-02 06:59] LABS: Band Neutrophils 9 % (0-10); Lymphocytes 2 % (20-55); Metamyelocytes 4 %; Ovalocytes Few; Polychromasia Slight; Segmented Neutrophils 79 % (50-85); Total Cells Counted 100
[2020-04-02 07:00] LABS: Platelet Estimate Normal
[2020-04-02] MEDS: LEVALBUTEROL 1.25 MG/3 ML NEB RESP TX SCH ×2 (08:10→14:53)
[2020-04-02] MEDS: CHOLECALCIFEROL 1,000 UNIT TABLET PO SCH (08:21)
[2020-04-02] MEDS: NEOMYCIN/POLYMYXIN/BACITRACIN OINT 28.4 GM TUBE TOP SCH ×3 (08:22→20:48)
[2020-04-02] MEDS: FLUoxetine 20 MG CAPSULE PO SCH (08:22)
[2020-04-02] MEDS: predniSONE 10 MG TABLET PO SCH (08:22)
[2020-04-02] MEDS: ASCORBIC ACID 500 MG TABLET PO SCH (08:22)
[2020-04-02] MEDS: FAMOTIDINE 20 MG TABLET PER TUBE SCH ×2 (08:22→20:48)
[2020-04-02] MEDS: FLUTICASONE 50 MCG NASAL SPRAY 16 GM BOTTLE BOTH NARES SCH ×2 (08:22→20:49)
[2020-04-02] MEDS ORDERED: DIGOXIN 0.5 MG/2 ML AMP IV ONE (08:48)
[2020-04-02] MEDS: ALBUMIN 25% 12.5 GM in PREMIX 1 EACH IV SCH (09:06)
[2020-04-02] MEDS ORDERED: SODIUM BICARBONATE 50 MEQ/50 ML VIAL IV ONE (10:49)
[2020-04-02] MEDS ORDERED: AMIODARONE INJ 150 MG in DEXTROSE 5% 100 ML IV ONE (10:55)
[2020-04-02] MEDS ORDERED: MIDAZOLAM 100 MG in SODIUM CHLORIDE 0.9% 80 ML IV PRN (10:58)
[2020-04-02] MEDS ORDERED: AMIODARONE INJ 450 MG in DEXTROSE 5% 241 ML IV SCH (11:00)
[2020-04-02] MEDS: dilTIAZem Drip 125 MG/125 ML PREMIX IV SCH (11:27)
[2020-04-02] MEDS ORDERED: SODIUM BICARBONATE 50 MEQ/50 ML SYRINGE IV ONE (12:30)
[2020-04-02] MEDS: LEVOFLOXACIN INJ 750 MG in PREMIX 1 EACH IV SCH (13:11)
[2020-04-02 13:33] LABS: ABG Base Excess 4.1 MMOL/L (-2.5-2.5); ABG HCO3 28.1 MMOL/L (20-26); ABG Oxygen Saturation 99.1 % (95-100); ABG PH 7.291 (7.35-7.45); ABG TCO2 30.1 MMOL/L (23-27)
[2020-04-02] MEDS: VECURONIUM 100 MG in SODIUM CHLORIDE 0.9% 100 ML IV SCH (14:51)
[2020-04-02] MEDS ORDERED: VECURONIUM 10 MG VIAL IV ONE (15:00)
[2020-04-02] MEDS: AMIODARONE INJ 450 MG in DEXTROSE 5% 241 ML IV SCH (18:10)
[2020-04-02] MEDS: POTASSIUM CHLORIDE 20 MEQ/15 ML UDCUP PER TUBE SCH (20:49)
[2020-04-02] MEDS: ACETAMINOPHEN 325 MG/10.15 ML UDCUP PO PRN (23:39)
[2020-04-03] MEDS: INSULIN REGULAR 100 UNIT/ML SUBCUT SCH ×4 (00:01→17:42)
[2020-04-03] MEDS: LEVALBUTEROL 1.25 MG/3 ML NEB RESP TX SCH ×3 (01:00→15:55)
[2020-04-03] MEDS: ACYCLOVIR INJ 500 MG in SODIUM CHLORIDE 0.9% 100 ML IV SCH ×3 (01:30→17:44)
[2020-04-03] MEDS: POTASSIUM CHLORIDE RIDER 20 MEQ in PREMIX 1 EACH IV PRN (02:51)
[2020-04-03] MEDS: MEROPENEM 500 MG in SODIUM CHLORIDE 0.9% 100 ML IV SCH ×2 (02:59→08:22)
[2020-04-03] MEDS: fentaNYL INJ 2,500 MCG in SODIUM CHLORIDE 0.9% 450 ML IV PRN ×2 (03:21→12:11)
[2020-04-03] MEDS: POTASSIUM CHLORIDE RIDER 10 MEQ in PREMIX 1 EACH IV PRN (03:56)
[2020-04-03] MEDS ORDERED: METOPROLOL TARTRATE 5 MG/5 ML VIAL IV ONE (03:59)
[2020-04-03] MEDS: FUROSEMIDE INJ 100 MG in SODIUM CHLORIDE 0.9% 90 ML IV SCH ×2 (04:11→06:01)
[2020-04-03 05:17] LABS: Allen Test Positive; Pt O2 Delivery Device Ventilator
[2020-04-03 05:24] LABS: ABG Base Excess 7.7 MMOL/L (-2.5-2.5); ABG HCO3 35.3 MMOL/L (20-26); ABG Oxygen Saturation 95.3 % (95-100); ABG PCO2 68.7 MM HG (35-48); ABG PH 7.329 (7.35-7.45); ABG PO2 80.6 MM HG (80-95); ABG TCO2 37.4 MMOL/L (23-27)
[2020-04-03] MEDS: ACYCLOVIR 5% OINT 15 GM TUBE TOP SCH ×5 (05:25→21:10)
[2020-04-03 05:46] LABS: Basophils # 0.1 10*3/uL (0.0-0.2); Basophils % 0.4 % (0.0-0.8); Eosinophils # 0.2 10*3/uL (0.0-0.87); Eosinophils % 1.6 % (0.00-10.9); Hematocrit 30.8 VOL% (35.7-47.0); Hemoglobin 10.1 GM/DL (12.0-16.0); Immature Granulocytes % 14.6 %; Immature Granulocytes Absolute 2.06 #; Lymphocytes # 0.3 10*3/uL (1.4-4.0); Lymphocytes % 2.1 % (21.3-54.2); Mean Corpuscular HGB Conc 32.8 GM/DL (32-36); Mean Corpuscular Volume 91.9 FL (87-102); Monocytes % 3.6 % (1.7-12.7); NRBC # 0.05 10*3/uL; Neutrophils % 77.7 % (38.7-73.9); Platelet Count 314 T/CUMM (130-400); Red Blood Count 3.35 MC/CUMM (3.8-5.5); Red Cell Distribution Width 16.2 % (9.3-17.3); White Blood Count 14.1 T/CUMM (4-12)
[2020-04-03 06:10] LABS: Albumin 2.1 G/DL (3.4-5.0); Bilirubin,Total 0.5 MG/DL (0.2-1.0); Calcium 8.6 MG/DL (8.5-10.1); Osmolality,Calculated 295.3 MOS/KG (273-304); Total Protein 6.2 G/DL (6.4-8.3)
[2020-04-03 06:13] LABS: Calcium 8.4 MG/DL (8.5-10.1); Osmolality,Calculated 291.5 MOS/KG (273-304)
[2020-04-03 06:16] LABS: Eosinophils 2 % (0-10); Hypochromasia 1+; Lymphocytes 4 % (20-55); Microcytosis 1+; Nucleated Red Blood Cells 1 (0-5); Ovalocytes Slight; Platelet Estimate Adequate; Segmented Neutrophils 89 % (50-85); Total Cells Counted 100
[2020-04-03 06:17] LABS: Risk Ratio 11.17; VLDL CHOLESTEROL 68.2 MG/DL
[2020-04-03] MEDS: POTASSIUM CHLORIDE 20 MEQ/15 ML UDCUP PER TUBE SCH ×6 (06:28→21:09)
[2020-04-03] MEDS: LEVOTHYROXINE 150 MCG TABLET PO SCH (06:28)
[2020-04-03] MEDS: DILTIAZEM 30 MG TABLET PO SCH ×4 (06:28→23:35)
[2020-04-03 06:37] LABS: Free T4 (Free Thyroxine) 0.67 NG/DL (0.76-1.46)
[2020-04-03] MEDS: dilTIAZem Drip 125 MG/125 ML PREMIX IV SCH (07:35)
[2020-04-03] MEDS: ASCORBIC ACID 500 MG TABLET PO SCH (08:21)
[2020-04-03] MEDS: predniSONE 10 MG TABLET PO SCH (08:21)
[2020-04-03] MEDS: CHOLECALCIFEROL 1,000 UNIT TABLET PO SCH (08:22)
[2020-04-03] MEDS: FLUoxetine 20 MG CAPSULE PO SCH (08:25)
[2020-04-03] MEDS: NEOMYCIN/POLYMYXIN/BACITRACIN OINT 28.4 GM TUBE TOP SCH ×3 (08:26→21:10)
[2020-04-03] MEDS: FLUTICASONE 50 MCG NASAL SPRAY 16 GM BOTTLE BOTH NARES SCH ×2 (08:26→21:10)
[2020-04-03] MEDS: ACETAMINOPHEN 325 MG/10.15 ML UDCUP PO PRN ×3 (08:27→21:11)
[2020-04-03] MEDS: ALBUMIN 25% 12.5 GM in PREMIX 1 EACH IV SCH (09:00)
[2020-04-03] MEDS: AMIODARONE INJ 450 MG in DEXTROSE 5% 241 ML IV SCH ×2 (11:20→22:46)
[2020-04-03] MEDS: LEVOFLOXACIN INJ 750 MG in PREMIX 1 EACH IV SCH (13:00)
[2020-04-03 14:06] LABS: ABG Base Excess 6.4 MMOL/L (-2.5-2.5); ABG HCO3 30.3 MMOL/L (20-26); ABG Oxygen Saturation 96.8 % (95-100); ABG PCO2 67.4 MM HG (35-48); ABG PH 7.319 (7.35-7.45); ABG PO2 85.9 MM HG (80-95); ABG TCO2 31.7 MMOL/L (23-27); Allen Test Positive; Pt O2 Delivery Device Ventilator
[2020-04-03] MEDS ORDERED: DIGOXIN 0.5 MG/2 ML AMP IV ONE ×2 (14:07→15:00)
[2020-04-03] MEDS: VECURONIUM 100 MG in SODIUM CHLORIDE 0.9% 100 ML IV SCH (14:49)
[2020-04-04] MEDS: LEVALBUTEROL 1.25 MG/3 ML NEB RESP TX SCH ×2 (00:12→07:21)
[2020-04-04] MEDS: INSULIN REGULAR 100 UNIT/ML SUBCUT SCH ×3 (00:16→11:15)
[2020-04-04] MEDS: ACYCLOVIR INJ 500 MG in SODIUM CHLORIDE 0.9% 100 ML IV SCH ×2 (01:49→10:11)
[2020-04-04] MEDS: ACETAMINOPHEN 325 MG/10.15 ML UDCUP PO PRN ×2 (01:52→06:03)
[2020-04-04 02:59] LABS: ABG Base Excess 6.4 MMOL/L (-2.5-2.5); ABG HCO3 30.2 MMOL/L (20-26); ABG Oxygen Saturation 95.1 % (95-100); ABG PH 7.305 (7.35-7.45); ABG PO2 78.6 MM HG (80-95)
[2020-04-04 03:02] LABS: ABG PCO2 70.5 MM HG (35-48)
[2020-04-04] MEDS: AMIODARONE INJ 450 MG in DEXTROSE 5% 241 ML IV SCH ×2 (04:16→15:35)
[2020-04-04 04:35] LABS: Basophils % 0.2 % (0.0-0.8); Eosinophils % 0.1 % (0.00-10.9); Hematocrit 33.4 VOL% (35.7-47.0); Hemoglobin 10.7 GM/DL (12.0-16.0); Immature Granulocytes % 18.3 %; Immature Granulocytes Absolute 4.02 #; Lymphocytes # 0.4 10*3/uL (1.4-4.0); Lymphocytes % 1.7 % (21.3-54.2); Mean Corpuscular Volume 93.3 FL (87-102); Mean Platelet Volume 9.7 FL (9.6-12.0); Monocytes % 3.6 % (1.7-12.7); NRBC # 0.19 10*3/uL; Neutrophils % 76.1 % (38.7-73.9); Platelet Count 402 T/CUMM (130-400); Red Blood Count 3.58 MC/CUMM (3.8-5.5); Red Cell Distribution Width 16.3 % (9.3-17.3)
[2020-04-04 04:53] LABS: Albumin 2.3 G/DL (3.4-5.0); Bilirubin,Total 0.5 MG/DL (0.2-1.0); Calcium 9.6 MG/DL (8.5-10.1); Osmolality,Calculated 296.3 MOS/KG (273-304); Total Protein 6.5 G/DL (6.4-8.3)
[2020-04-04 05:03] LABS: Band Neutrophils 5 % (0-10); Hypochromasia 1+; Lymphocytes 3 % (20-55); Microcytosis 1+; Nucleated Red Blood Cells 1 (0-5); Platelet Estimate Adequate; Segmented Neutrophils 88 % (50-85); Total Cells Counted 100
[2020-04-04 06:01] VITALS: BP 113/68
[2020-04-04] MEDS: DILTIAZEM 30 MG TABLET PO SCH ×2 (06:01→11:15)
[2020-04-04] MEDS: LEVOTHYROXINE 150 MCG TABLET PO SCH (06:01)
[2020-04-04] MEDS: ACYCLOVIR 5% OINT 15 GM TUBE TOP SCH ×3 (06:05→15:35)
[2020-04-04] MEDS: dilTIAZem Drip 125 MG/125 ML PREMIX IV SCH (07:11)
[2020-04-04] MEDS: FLUoxetine 20 MG CAPSULE PO SCH (08:07)
[2020-04-04] MEDS: CHOLECALCIFEROL 1,000 UNIT TABLET PO SCH (08:07)
[2020-04-04] MEDS: predniSONE 10 MG TABLET PO SCH (08:08)
[2020-04-04] MEDS: POTASSIUM CHLORIDE 20 MEQ/15 ML UDCUP PER TUBE SCH (08:08)
[2020-04-04] MEDS: FLUTICASONE 50 MCG NASAL SPRAY 16 GM BOTTLE BOTH NARES SCH (08:08)
[2020-04-04] MEDS: ASCORBIC ACID 500 MG TABLET PO SCH (08:08)
[2020-04-04] MEDS: ALBUMIN 25% 12.5 GM in PREMIX 1 EACH IV SCH (08:08)
[2020-04-04] MEDS: NEOMYCIN/POLYMYXIN/BACITRACIN OINT 28.4 GM TUBE TOP SCH (08:08)
[2020-04-04] MEDS ORDERED: VANCOMYCIN INJ 1,500 MG in SODIUM CHLORIDE 0.9% 500 ML IV SCH (09:00)
[2020-04-04] MEDS: LEVOFLOXACIN INJ 750 MG in PREMIX 1 EACH IV SCH (13:10)
[2020-04-04] MEDS ORDERED: MORPHINE 4 MG/1 ML VIAL IV PRN (14:49)
[2020-04-04] MEDS ORDERED: LORazepam 2 MG/1 ML VIAL IV PRN (14:50)
== END 2020-04-04 15:42 | disposition expired | DRG 207 ==
LOC: N.ED 12:54 → SUATTDRO 15:54 → N.EDINP 15:54 → N.2E 19:25 → N.CC 02-21 13:19 → N.ICU 03-14 21:31 → N.CVR 03-27 17:11
PROVIDERS: ADMIT Internal Medicine; ATTEND Internal Medicine
PROC: EGDWPEG (ICD-10-PCS; 2020-03-21 11:05)